=== PATIENT | female | born 1955 | race Caucasian/White ===

== ENCOUNTER 2019-09-25 09:10 | Outpatient (CLI) | payer MEDICARE, MEDICAID, SELFPAY ==
[2019-09-25 10:24] LABS: Alanine Aminotransferase 16 U/L (4-35); Albumin Level 4.3 g/dL (3.5-5.1); Alkaline Phosphatase 107 U/L (38-126); Aspartate Amino Transferase 28 U/L (14-36); Bilirubin,Total 0.6 mg/dL (0.2-1.3); Blood Urea Nitrogen 15 mg/dL (7-17); Calcium 9.2 mg/dL (8.4-10.2); Carbon Dioxide 36 mmol/L (22-30); Chloride 97 mmol/L (98-107); Cholesterol 96 mg/dL (0-200); Estimated Glomerular Filt Rate > 60; Glucose 102 mg/dL (65-105); HDL Direct 30 mg/dL; Hemoglobin A1C 6.1 % (<5.7); Sodium 137 mmol/L (137-145); Triglycerides 95 mg/dL (<150)
[2019-09-25 10:35] LABS: LDL Cholesterol Direct 44 mg/dL
[2019-09-25 11:20] LABS: Vitamin D 25 Hydroxy 43.8 ng/mL
== END 2019-09-25 09:11 | disposition home or self-care (01) ==
PROVIDERS: PCP Internal Medicine; Referring Provider Internal Medicine; Visit Provider Nurse Practitioner
DX: E04.1 Nontoxic single thyroid nodule (principal); R73.02 Impaired glucose tolerance (oral); E78.5 Hyperlipidemia, unspecified; E55.9 Vitamin D deficiency, unspecified
CPT/HCPCS: 36415; 80053; 80061; 82306; 83036; 84443

== ENCOUNTER 2020-04-21 09:17 | Outpatient (CLI) | payer MEDICARE, MEDICAID, SELFPAY ==
[2020-04-21 10:37] LABS: Anion Gap 7 mmol/L (8-16); Blood Urea Nitrogen 22 mg/dL (7-17); Calcium 8.8 mg/dL (8.4-10.2); Carbon Dioxide 30 mmol/L (22-30); Chloride 101 mmol/L (98-107); Estimated Glomerular Filt Rate > 60; Glucose 105 mg/dL (65-105); Sodium 138 mmol/L (137-145)
== END 2020-04-21 09:18 | disposition home or self-care (01) ==
LOC: ANHLAB 09:22
PROVIDERS: PCP Internal Medicine; Visit Provider Internal Medicine
DX: I10 Essential (primary) hypertension (principal)
CPT/HCPCS: 36415; 80048

== ENCOUNTER 2020-07-09 10:34 | Outpatient (CLI) | payer MEDICARE, MEDICAID, SELFPAY ==
--- NOTE | ~2020-07-09 | MM_ITS ---
EXAMINATION: MM screening [facility] BI w carmen HISTORY: Screening mammogram TECHNIQUE: Craniocaudal and mediolateral oblique 3-D tomosynthesis images were obtained and synthetic 2-D images were generated. CAD analysis was submitted and interpreted. COMPARISON: 12/04/1917, 02/15/2013 BREAST PARENCHYMAL COMPOSITION: The breasts are almost entirely fatty. FINDINGS: Scattered benign-appearing calcifications are present. There is no evidence of suspicious m ass, calcification, or architectural distortion to suggest malignancy in either breast. There has bee n no suspicious interval change. IMPRESSION: 1. No mammographic evidence of malignancy. 2. Recommend routine screening mammography in one year. BI-RADS Category 2: Benign finding(s). Reviewed, dictated and finalized at location A.
== END 2020-07-09 10:35 | disposition home or self-care (01) ==
LOC: ANHIMG 10:37
PROVIDERS: PCP Internal Medicine; Visit Provider Nurse Practitioner
DX: Z12.31 Encounter for screening mammogram for malignant neoplasm of breast (principal)
CPT/HCPCS: 77063; 77067

== ENCOUNTER 2020-07-13 09:40 | Outpatient (CLI) | payer MEDICARE, MEDICAID, SELFPAY ==
--- NOTE | ~2020-07-13 | US_ITS ---
EXAMINATION: US carotid duplex BI DATE: 07/13/2020 10:44 INDICATION: Follow-up carotid stenosis. Previous left endarterectomy. TECHNIQUE: Grayscale, color Doppler, and pulsed Doppler images of the cervical carotid arteries were obtained. The degree of vessel stenosis is placed in one of the following categories: normal, <50%, 5 0-69%, >=70% but less than near-occlusion, near-occlusion, or total occlusion. Note that percent sten osis relative to normal distal artery lumen diameter is indirectly measured from velocity measurement s as described by Sekou, et al. Radiology 2003; 229:340-346. Notes: Normal: Peak systolic velocity <125 centimeters/sec and no plaque <50%. Peak systolic velocity <125 ( EDV <40; ICA/CCA PSV ratio <2.0; used these factors only a tandem lesions or low cardiac output or co ntralateral disease) 50-69 %: PSV 125-230 (EDV 40-100; ratio 2-4) >= 70% but less than near occlusion: PSV greater than 230 (EDV > 100; ratio> 4.0) Near Occlusion: PSV that is variable; markedly narrowed lumen Occlusion: Absent flow on color/spectral Doppler and no lumen on souza scale. COMPARISON: Ultrasound dated 05/31/2018 FINDINGS: RIGHT: The right common carotid artery (CCA) peak systolic velocity (PSV) is 66 cm/s. The right internal car otid artery (ICA) PSV is 439 cm/s. The right ICA end-diastolic velocity (EDV) is 139 cm/s. The right ICA/CCA PSV ratio is 6.6. The external carotid artery (ECA) PSV is 645 cm/s. There is to and fro flow in the right vertebral artery. LEFT: The left CCA PSV is 144 cm/s. The left ICA PSV is 166 cm/s. The left ICA EDV is 36 cm/s. The left ICA /CCA PSV ratio is 0.9. The ECA PSV is 216 cm/s. There is antegrade flow in the left vertebral artery . IMPRESSION: 1. Greater than or equal to 70% stenosis in the right internal carotid artery by sonographic criteri a. 2. 50-69% stenosis in the left internal carotid artery by sonographic criteria. 3: To and fro flow in the right vertebral artery. Reviewed, dictated and finalized at location B. IMPRESSION: 1. Greater than or equal to 70% stenosis in the right internal carotid artery by sonographic criteria. 2. 50-69% stenosis in the left internal carotid artery by sonographic criteria. 3: To and fro flow in the right vertebral artery.
--- NOTE | ~2020-07-13 | CT_ITS ---
EXAMINATION: CT lung screening DATE: 07/13/2020 09:58 INDICATION: Personal history of nicotine dependence TECHNIQUE: Computed tomography (CT) of the chest was performed without intravenous contrast. The dose -length product was 399.89 mGy-cm. Automated exposure control and iterative reconstruction technique were employed. Automated exposure control and iterative reconstruction technique were employed. COMPARISON: CT dated 12/14/2027 FINDINGS: No significant pleural or pericardial effusion. There is atherosclerosis of the aorta and c oronary arteries. Calcified granuloma left upper lobe. Heart size is normal. Nonspecific left adrenal thickening.There are a few 2 mm bilateral nodules, predominantly in the upper lobes, likely benign. There is scattered mosaic attenuation, likely small airway disease. No endobronchial lesions. Moderat e lower thoracic spondylosis. No lytic or blastic lesions. IMPRESSION: 1. Lung-RADS category 2: Benign appearance or behavior. Continue annual screening with noncontrast lo w-dose chest CT in 12 months. Reviewed, dictated and finalized at location B. IMPRESSION: 1. Lung-RADS category 2: Benign appearance or behavior. Continue annual screeni ng with noncontrast low-dose chest CT in 12 months.
--- NOTE | ~2020-07-13 | US_ITS ---
EXAMINATION: US thyroid EXAM DATE: 07/13/2020 10:45 INDICATION: E04.1 - Nontoxic single thyroid nodule. TECHNIQUE: Multiple grayscale and Doppler images of the thyroid were obtained (by a technologist who performed the scan) and subsequently reviewed. Individual nodules and recommendations may be reporte d in accordance with TI-RADS system as designated by the 2017 ACR White Paper TI-RADS committee. Comp giancarlo is made to prior examination from 07/03/2018. FINDINGS: The right thyroid lobe measures 5.3 x 1.8 x 1.7 cm, the left measuring 5.2 x 2.4 x 1.8 cm. Mildly dif fusely heterogeneous thyroid echogenicity with several nodules, largest in the left thyroid lobe carlene uring 1.9 x 1.3 x 1.3 cm, smaller than on prior study and also previously biopsied with benign result s. Next largest solid thyroid nodule measures 6 mm in the right thyroid lobe unchanged, not likely si gnificant. IMPRESSION: Multinodular goiter. Return to clinical follow-up and if additional palpable abnormality develops a repeat ultrasound can be obtained. Reviewed, dictated and finalized at location A. IMPRESSION: Multinodular goiter. Return to clinical follow-up and if additiona l palpable abnormality develops a repeat ultrasound can be obtained.
== END 2020-07-13 09:41 | disposition home or self-care (01) ==
PROVIDERS: PCP Internal Medicine; Visit Provider Nurse Practitioner
DX: I65.23 Occlusion and stenosis of bilateral carotid arteries (principal); Z87.891 Personal history of nicotine dependence; E04.2 Nontoxic multinodular goiter
CPT/HCPCS: 71271; 76536; 93880

== ENCOUNTER 2020-07-21 09:35 | Outpatient (CLI) | payer MEDICARE, MEDICAID, SELFPAY ==
[2020-07-21 10:22] LABS: Alanine Aminotransferase 21 U/L (4-35); Albumin Level 4.1 g/dL (3.5-5.1); Alkaline Phosphatase 102 U/L (38-126); Anion Gap 1 mmol/L (8-16); Aspartate Amino Transferase 33 U/L (14-36); Bilirubin,Total 0.5 mg/dL (0.2-1.3); Blood Urea Nitrogen 18 mg/dL (7-17); Calcium 9.1 mg/dL (8.4-10.2); Carbon Dioxide 38 mmol/L (22-30); Chloride 100 mmol/L (98-107); Cholesterol 107 mg/dL (0-200); Estimated Glomerular Filt Rate > 60; Glucose 113 mg/dL (65-105); HDL Direct 36 mg/dL; Potassium 4.7 mmol/L (3.4-5.0); Sodium 139 mmol/L (137-145); Triglycerides 118 mg/dL (<150)
[2020-07-21 10:34] LABS: LDL Cholesterol Direct 46 mg/dL
== END 2020-07-21 09:36 | disposition home or self-care (01) ==
PROVIDERS: PCP Internal Medicine; Visit Provider Nurse Practitioner
DX: F32.9 Major depressive disorder, single episode, unspecified (principal); E78.2 Mixed hyperlipidemia; Z78.0 Asymptomatic menopausal state
CPT/HCPCS: 36415; 80053; 80061; 84443

== ENCOUNTER → 2020-07-25 01:21 | Outpatient (CLI) | payer MEDICARE, MEDICAID, SELFPAY ==
[2020-07-25 18:52] LABS: SARS-CoV-2 RNA PCR Negative
== END ==
PROVIDERS: PCP Internal Medicine; Visit Provider Internal Medicine Critical Care Medicine
DX: R68.89 Other general symptoms and signs (principal); Z20.822 Contact with and (suspected) exposure to COVID-19
CPT/HCPCS: C9803; U0003; U0005

== ENCOUNTER 2020-07-28 10:07 | Outpatient (CLI) | payer MEDICARE, MEDICAID, SELFPAY ==
--- NOTE | 2020-08-12 19:49 | WPDSLEEPSTUD ---
Sleep Study Date of Study: 07/28/20 Ordering Provider: MICHAEL Duke Interpreting Physician: India Packer MD Sleep Study Type: Split Polysomnogram Height: 1.57 m Weight: 107.955 kg Body Mass Index: 43.5 Neck Circumference (inches): 16 [place]: 7 Reason for Sleep Study Tired, need for daytime naps 12/17/2015 home sleep test with moderate obstructive sleep apnea, AHI 16.2 with heavy snoring and severe O2 desaturation to 56% Sleep History Nadya Zarate is a 65 year old female who isn't sure if she snores because she is the only person in her house. A home sleep test in December 17, 2015 showed moderate obstructive sleep apnea with an AHI 16.2 and desaturation to 56%. It is not clear if she ever was treated. 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 She has excessive daytime sleepiness. She occasionally awakens at night with heartburn, belching or coughing. She occasionally awakens from sleep feeling short of breath. She rarely has trouble sleep with a cold and she rarely wakes up gasping for breath at night. She occasionally has breathing problems at night reported to her by others. She rarely sweats excessively at night. She occasionally notices her heart pounding or beating irregularly night. She occasionally falls asleep during the day, occasionally involuntarily but never while driving. She does not have daytime difficulties due to excessive sleepiness, she is retired. She rarely has loss of muscle tone with strong emotion. She does not feel paralyzed on waking or falling asleep. She does not have vivid dreamlike scenes upon awakening or falling asleep. She is not afraid to go to sleep. She does not have nightmares. She rarely remembers her dreams. She occasionally has racing thoughts. She occasionally feels sad or depressed. She constantly has anxiety. She occasionally has muscular tension. She rarely notices parts of her body jerking. She occasionally has crawling and aching feelings in her legs at night. She occasionally has leg pain at night. She does not report kicking at night. She does not have morning jaw pain. She does not grind her teeth during sleep. She occasionally has bothered by pain during the day. She is not waken by pain at night. She occasionally wakes up feeling stiff the morning. She frequently wakes up with sore achy muscles. She also frequently wakes up with pain in the neck and spine. She has depression, fatigue, palpitations. She occasionally has morning headaches. She only occasionally awakens feeling refreshed. She occasionally has memory or concentration problems. Normal bedtime is 11:00 p.m., falling asleep within 20 minutes, waking 1-2 times at night. While she is awake, she will lie in bed, thinking, trying to return to sleep. She wakes the morning between 7:30 and 8:00 a.m.. She takes naps but not every day. A short nap sometimes is refreshing. She feels better in the morning compared other times of day. [facility] Past Medical History Medical History (Updated 08/14/20 @ 14:46 by India Packer MD) Breast abscess Cholecystectomy planned Depression Essential (primary) hypertension History of kidney stones Mixed hyperlipidemia Surgical History Surgical History H/O breast surgery H/O carotid endarterectomy H/O colonoscopy H/O removal of cyst H/O: hysterectomy History of oophorectomy Family History Family History Father Family history of obesity Hypertension Family history of diabetes mellitus in first degree relative Family history of arthritis Family history of chronic obstructive pulmonary disease Mother Family history of obesity Hypertension Asthma Family history of diabetes mellitus in first degree relative Family history of coronary artery disease Diabetes mellitus Social History Social History (Reviewed
[2020-08-14 14:57] VITALS: BMI 43.5
== END 2020-07-28 10:08 | disposition home or self-care (01) ==
LOC: ANHCSM 10:08
PROVIDERS: PCP Internal Medicine; Visit Provider Nurse Practitioner
DX: G47.33 Obstructive sleep apnea (adult) (pediatric) (principal)
CPT/HCPCS: 95811

== ENCOUNTER 2020-08-11 08:28 | Outpatient (CLI) | payer MEDICARE, MEDICAID, SELFPAY ==
--- NOTE | ~2020-08-11 | NM_ITS ---
EXAMINATION: NM rosie stress w perfusion DATE: 08/11/2020 14:44 INDICATION: Palpitations. TECHNIQUE: Rest images were obtained following intravenous administration of 9.8 mCi Tc99m tetrofosmi n (Myoview). The patient was infused intravenously with Lexiscan (regadenoson). Then, 28 mCi Tc99m te trofosmin (Myoview) was administered intravenously, and supine and prone stress images were obtained. Data was reconstructed into short axis and horizontal and vertical long axis SPECT images. Gated SPE CT images were also obtained. COMPARISON: Myocardial perfusion imaging 07/26/2017 FINDINGS: There is no definite reversible or fixed perfusion abnormality to suggest ischemia or infar ction. There is no segmental wall motion abnormality. Left ventricular ejection fraction measures > 70%. IMPRESSION: 1. No definite ischemia or infarct. 2. Normal left ventricular ejection fraction measuring >70%. Reviewed, dictated and finalized at location A.
--- NOTE | 2020-08-11 09:12 | EST_ITS ---
Patient Info Name: Nadya Zarate Age: 65 years : 1955 Gender: Female Ht: 61 in Wt: 254 lbs BSA: 2.30 m2 HR: 74 bpm BP: 86 / 56 mmHg Heart Rhythm: Sinus Rhythm Exam Date: 08/11/2020 10:27 AM Exam Location: [facility] Stress Patient Status: Outpatient Admit Date: 08/11/2020 Staff Ordering Physician: Nancy Zarate Attending Provider: Nancy Zarate Exercise Technologist: Missy Luciano CT Exercise Physician: Carlos Suggs DO Exam Type: CA stress rosie w NM Study Info Indications R00.2 - Palpitations A regadenoson stress test was performed. Summary 1. 1. Negative lexiscan stress test for ischemic ST changes by ECG criteria. 2. 2. Stable hemodynamics throughout the test. 3. 3. Nuclear scan to follow and will be reported separately. Please correlate with it. 4. 4. Patient informed of the above results. Protocol: Lexiscan Stress ECG Details Stage: REST Duration (min): 3 min : 6 sec HR (bpm): 70 SBP (mmHg): 82 DBP (mmHg): 56 Stage: REST Duration (min): 27 min : 1 sec HR (bpm): 81 SBP (mmHg): 96 DBP (mmHg): 61 Stage: STAGE 1 Duration (min): 0 min : 59 sec HR (bpm): 89 SBP (mmHg): 96 DBP (mmHg): 61 Stage: RECOVERY Duration (min): 1 min : 0 sec HR (bpm): 91 SBP (mmHg): 96 DBP (mmHg): 61 Stage: RECOVERY Duration (min): 2 min : 0 sec HR (bpm): 87 SBP (mmHg): 96 DBP (mmHg): 61 Stage: RECOVERY Duration (min): 3 min : 0 sec HR (bpm): 87 SBP (mmHg): 115 DBP (mmHg): 52 Stage: RECOVERY Duration (min): 3 min : 4 sec HR (bpm): 84 SBP (mmHg): 115 DBP (mmHg): 52 Rest HR: 81 bpm Peak HR: 93 bpm Rest Sys BP: 120 mmHg Peak Sys BP: 115 mmHg Max Pred HR: 154 bpm % Max Pred HR: 60 % Target HR: 131 bpm Max RPP: 10,695 bpm*mmHg Termination Reason: Completed protocol Cardiac Symptoms: Shortness of breath Total Time: 1 min : 0 sec Rest Syed BP: 70 mmHg Peak Syed BP: 52 mmHg Total Dose: 0.4 mg Resting ECG Sinus rhythm, IRBBB. Stress ECG No ST changes. Arrhythmias None. Report Signatures
== END 2020-08-11 08:29 | disposition home or self-care (01) ==
LOC: ANHCARD 08:37
PROVIDERS: PCP Internal Medicine; Visit Provider Nurse Practitioner
DX: R00.2 Palpitations (principal); R06.02 Shortness of breath
CPT/HCPCS: 78452; 93017; A9502; J2785

== ENCOUNTER → 2020-09-01 04:52 | Outpatient (CLI) | payer MEDICARE, MEDICAID, SELFPAY ==
[2020-09-01 20:06] LABS: SARS-CoV-2 RNA PCR Negative
== END ==
PROVIDERS: PCP Internal Medicine; Visit Provider Internal Medicine Critical Care Medicine
DX: R68.89 Other general symptoms and signs (principal); Z20.822 Contact with and (suspected) exposure to COVID-19
CPT/HCPCS: C9803; U0003; U0005

== ENCOUNTER 2020-09-03 07:00 | Outpatient (CLI) | payer MEDICARE, MEDICAID, SELFPAY ==
--- NOTE | 2020-09-21 11:35 | WPDSLEEPSTUD ---
Sleep Study Date of Study: 09/03/20 Ordering Provider: MICHAEL Duke Interpreting Physician: India Packer MD Sleep Study Type: BiPAP Titration Height: 1.55 m Weight: 116.12 kg Body Mass Index: 48.3 Neck Circumference (inches): 18 [place]: 8 Reason for Sleep Study * 12/17/2015 home sleep test; moderate obstructive sleep apnea, AHI 16.2, heavy snoring and severe O2 desaturation to 56% * 07/28/2020 split night study - mild obstructive sleep apnea; initial apnea-hypopnea index of 5.0, with worsening to severe when the patient went into REM at CPAP 12 cm with an AHI 30.9, no optimal pressure found. She returns for a full night BiPAP titration. Sleep History Nadya Zarate is a 65 year old female who had a split night study 07/28/2020 with mild JHONY, AHI 5.0, and this worsened when she went into REM at CPAP 12 cm. No optimal pressure was obtained during the titration with CPAP pressures 6 cm to 14 cm attempted and BiPAP 28/01 using a small Airfit F 30 full face mask and a heated humidifier; persistent hypoxemia on 28/01 with an AHI of 5.8. The lowest saturation during the titration was 72%. A home sleep test in December 17, 2015 showed moderate obstructive sleep apnea with an AHI 16.2 and desaturation to 56%. It is not clear if she ever was treated. 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 She has excessive daytime sleepiness. She occasionally awakens at night with heartburn, belching or coughing. She occasionally awakens from sleep feeling short of breath. She rarely has trouble sleep with a cold and she rarely wakes up gasping for breath at night. She occasionally has breathing problems at night reported to her by others. She rarely sweats excessively at night. She occasionally notices her heart pounding or beating irregularly night. She occasionally falls asleep during the day, occasionally involuntarily but never while driving. She does not have daytime difficulties due to excessive sleepiness, she is retired. She rarely has loss of muscle tone with strong emotion. She does not feel paralyzed on waking or falling asleep. She does not have vivid dreamlike scenes upon awakening or falling asleep. She is not afraid to go to sleep. She does not have nightmares. She rarely remembers her dreams. She occasionally has racing thoughts. She occasionally feels sad or depressed. She constantly has anxiety. She occasionally has muscular tension. She rarely notices parts of her body jerking. She occasionally has crawling and aching feelings in her legs at night. She occasionally has leg pain at night. She does not report kicking at night. She does not have morning jaw pain. She does not grind her teeth during sleep. She occasionally has bothered by pain during the day. She is not waken by pain at night. She occasionally wakes up feeling stiff the morning. She frequently wakes up with sore achy muscles. She also frequently wakes up with pain in the neck and spine. She has depression, fatigue, palpitations. She occasionally has morning headaches. She only occasionally awakens feeling refreshed. She occasionally has memory or concentration problems. Normal bedtime is 11:00 p.m., falling asleep within 20 minutes, waking 1-2 times at night. While she is awake, she will lie in bed, thinking, trying to return to sleep. She wakes the morning between 7:30 and 8:00 a.m.. She takes naps but not every day. A short nap sometimes is refreshing. She feels better in the morning compared other times of day. [facility] Past Medical History Medical History (Updated 09/21/20 @ 12:19 by India Packer MD) Breast abscess Cholecystectomy planned Depression Essential (primary) hypertension History of kidney stones Mixed hyperlipidemia Obstructive sleep apnea Surgical History Surgical History H/O breast surgery H/O carotid endarterectomy H/O colonoscopy H/O
[2020-09-21 11:41] VITALS: BMI 48.3
== END 2020-09-04 07:41 | disposition home or self-care (01) ==
LOC: ANHCSM 15:09
PROVIDERS: PCP Internal Medicine; Visit Provider Nurse Practitioner
DX: G47.33 Obstructive sleep apnea (adult) (pediatric) (principal); E66.9 Obesity, unspecified; Z68.42 Body mass index [BMI] 45.0-49.9, adult
CPT/HCPCS: 94060; 94618; 94726; 94729; 95811

== ENCOUNTER 2020-09-03 12:38 | Outpatient (CLI) | payer MEDICARE, MEDICAID, SELFPAY ==
[2020-09-03 13:00] VITALS: PULSE 77; O2SAT 95
[2020-09-03 13:03] VITALS: PULSE 108; O2SAT 85
[2020-09-03 13:05] VITALS: PULSE 96; O2SAT 90
[2020-09-03 13:15] VITALS: PULSE 78; O2SAT 95
--- NOTE | 2020-09-03 13:57 | HOMEO2EVAL ---
Evaluation was performed at [facility] Home Oxygen Evaluation RC: Home Oxygen (O2) Evaluation Start: 09/03/20 13:55 Freq: Status: Active Protocol: RPE Activity Type Activity Date Activity User E-Sign Co-Sign Detail Recorded Client Recorded Date Recorded By Document 09/03/20 13:00 [email or web address] [email or web address] 09/03/20 13:57 ROYAL Document 09/03/20 13:03 ROYAL [email or web address] 09/03/20 13:57 ROYAL Document 09/03/20 13:05 ROYAL [email or web address] 09/03/20 13:57 ROYAL Document 09/03/20 13:15 ROYAL [email or web address] 09/03/20 13:57 ROYAL 09/03/20 09/03/20 09/03/20 13:00 13:03 13:05 Home O2 Evaluation Test Phase Resting Exercise Exercise Oxygen Delivery Room Air Room Air Nasal Cannula Oxygen Flow Rate (L/min) 1 Pulse Oximetry (90-100 %) 95 85 L 90 Pulse Rate (60-100 beats/min) 77 108 H 96 Activity Tolerance Excellent Ambulation Distance (feet) 600 Home Oxygen Evaluation Comments PT REQUIRES 1 LITER O2 WITH EXERTION Treatment Charges O2 Evaluation - Outpatient 09/03/20 13:15 Home O2 Evaluation Test Phase Resting Oxygen Delivery Room Air Oxygen Flow Rate (L/min) Pulse Oximetry (90-100 %) 95 Pulse Rate (60-100 beats/min) 78 Activity Tolerance Ambulation Distance (feet) Home Oxygen Evaluation Comments Treatment Charges
--- NOTE | 2020-09-03 13:58 | PCRCNOTE ---
HOME O2 EVAL FAXED TO DR AZEVEDO OFFICE STAFF, NOTED THIS WILL BE A NEW HOME O2 SET-UP
--- NOTE | 2020-09-06 14:05 | WPDPFTINT ---
PFT Procedure Performed PFT Procedure Performed Spirometry with Pre/Post Bronchodilator Plethysmography (Lung Vol) Diffusing Cap (DLCO) Flow Vol Loop PFT Interpretation This PFT met all criteria for ATS standards and reproducibility FEV/FVC post bronchodilator 83% FEV1 78% FVC 74% TLC 86% RV 97% RV/TLC 47% DLCO when adjusted for alveolar volume but not adjusted for hemoglobin Flow volume loops were normal Impression: Other than a mildly decreased diffusion capacity this is a normal pulmonary function test. Clinical correlation is advised.
--- NOTE | 2020-10-15 15:29 | HOMEO2EVAL ---
Evaluation was performed at [facility]
== END 2020-09-03 12:39 | disposition home or self-care (01) ==
PROVIDERS: PCP Internal Medicine; Visit Provider Nurse Practitioner
DX: G47.33 Obstructive sleep apnea (adult) (pediatric) (principal); R06.02 Shortness of breath
CPT/HCPCS: 94060; 94618; 94726; 94729

== ENCOUNTER 2020-11-27 09:16 | Outpatient (CLI) | payer MEDICARE, MEDICAID, SELFPAY ==
[2020-11-27 09:30] VITALS: O2SAT 96
[2020-11-27 09:35] VITALS: O2SAT 85
[2020-11-27 09:36] VITALS: O2SAT 87
[2020-11-27 09:38] VITALS: O2SAT 93
[2020-11-27 09:45] VITALS: O2SAT 95
--- NOTE | 2020-11-27 10:05 | HOMEO2EVAL ---
Evaluation was performed at [facility] Home Oxygen Evaluation RC: Home Oxygen (O2) Evaluation Start: 11/27/20 10:01 Freq: Status: Active Protocol: RPE Activity Type Activity Date Activity User E-Sign Co-Sign Detail Recorded Client Recorded Date Recorded By Document 11/27/20 09:30 ROYAL [email or web address] 11/27/20 10:05 ROYAL Document 11/27/20 09:35 ROYAL [email or web address] 11/27/20 10:05 ROYAL Document 11/27/20 09:36 ROYAL [email or web address] 11/27/20 10:05 ROYAL Document 11/27/20 09:38 ROYAL [email or web address] 11/27/20 10:05 ROYAL Document 11/27/20 09:45 ROYAL [email or web address] 11/27/20 10:05 ROYAL 11/27/20 11/27/20 11/27/20 09:30 09:35 09:36 Home O2 Evaluation Test Phase Resting Exercise Exercise Oxygen Delivery Room Air Room Air Nasal Cannula Oxygen Flow Rate (L/min) 1 Pulse Oximetry (90-100 %) 96 85 L 87 L Ambulation Distance (feet) Home Oxygen Evaluation Comments Treatment Charges O2 Evaluation - Outpatient 11/27/20 11/27/20 09:38 09:45 Home O2 Evaluation Test Phase Exercise Resting Oxygen Delivery Nasal Cannula Room Air Oxygen Flow Rate (L/min) 2 Pulse Oximetry (90-100 %) 93 95 Ambulation Distance (feet) 550 Home Oxygen Evaluation Comments PT WALKED 550 FEET IN 6 MINUTES, WITH BREAKS FOR O2 TITRATION. PT REQUIRES 2 L O2 WITH EXERTION/ ACTIVITY Treatment Charges
--- NOTE | 2020-11-27 10:06 | PCRCNOTE ---
HOME O2 EVAL REPEATED PER [facility] ORDER. FAXED RESULT TO [facility] OFFICE STAFF AT 0267 11/27/20. ALSO CALLED AND SPOKE TO SHEREE
== END 2020-11-27 09:17 | disposition home or self-care (01) ==
PROVIDERS: PCP Internal Medicine; Visit Provider Nurse Practitioner
DX: J44.9 Chronic obstructive pulmonary disease, unspecified (principal)
CPT/HCPCS: 94618

== ENCOUNTER 2020-12-11 12:29 | Outpatient (CLI) | payer MEDICARE, MEDICAID, SELFPAY ==
--- NOTE | 2020-12-11 16:34 | P.METCHAL_ITS ---
Methacholine Procedure Perform Procedure Performed Methacholine Challenge Methacholine Challenge This is a methacholine challenge test. The test was performed and interpreted in accordance with the 1999 [place] [employer] guidelines. The test was performed with increasing doses of nebulized methacholine using a 2 minute tidal breathing protocol. The best post-methacholine FEV1 values were used to calculate the change from the post diluent FEV1. Findings: Baseline FEV1 1.45 L, 98% predicted. Post diluent FEV1 1.49 L Post 0.025 mg/ml methacholine FEV1 1.43 L, decreased 4% Post 0.25 mg/mL methacholine FEV1 1.48 L, decreased 1% Post 2.5 mg/mL methacholine FEV1 1.44 L, decreased 3% Post 10 mg/mL methacholine FEV1 1.42 L, decreased 5% Post 25 mg/mL methacholine FEV1 1.28 L, decreased 14% Post albuterol nebulization FEV1 1.41 L Impression: The PC20 is >20 mg/ml which is categorized as normal bronchial responsiveness. There are no prior methacholine challenge studies for comparison
== END 2020-12-11 12:30 | disposition home or self-care (01) ==
PROVIDERS: PCP Internal Medicine; Visit Provider Nurse Practitioner
DX: J45.909 Unspecified asthma, uncomplicated (principal)
CPT/HCPCS: 94070; J7674

== ENCOUNTER 2020-12-23 09:43 | Outpatient (CLI) | payer MEDICARE, MEDICAID, SELFPAY ==
[2020-12-23 10:35] LABS: Basophils Absolute Auto 0.1 K/mm3 (0.0-0.1); Basophils Percent Auto 0.7 % (0.2-1.2); Eosinophils Absolute Auto 0.2 K/mm3 (0-0.3); Eosinophils Percent Auto 1.8 % (0-4.4); Hematocrit 39.6 % (37.0-47.0); Hemoglobin 12.5 g/dL (12.0-15.0); Immature Granulocyte Absolute 0.02 K/mm3 (0.00-0.031); Immature Granulocyte Percent A 0.2 % (0-0.5); Lymphocytes Absolute Auto 1.82 K/mm3 (0.9-3.2); Lymphocytes Percent Auto 19.4 % (18.3-44.2); Mean Corpuscular HGB Conc 31.6 g/dl (32-36); Mean Corpuscular Hemoglobin 31.5 pg (26-34); Mean Corpuscular Volume 99.7 fl (80-100); Mean Platelet Volume 8.8 fl (7.4-10.4); Monocytes Absolute Auto 0.9 K/mm3 (0.1-0.6); Monocytes Percent Auto 9.4 % (2.6-8.5); Neutrophils Absolute Auto 6.4 K/mm3 (1.3-6.7); Neutrophils Percent Auto 68.5 % (45.5-73.1); Platelet Count Result 385 k/mm3 (150-375); Red Blood Count 3.97 M/mm3 (4.2-5.4); Red Cell Distribution Width 12.9 % (11.5-14.5); White Blood Count 9.4 K/mm3 (4.5-10.0)
[2020-12-26 10:12] LABS: Alpha-1-Antitrypsin, QN 141 mg/dL (83-199)
[2020-12-27 11:20] LABS: NIL 0.01 IU/mL; Quantiferon TB Plus, 1T NEGATIVE (NEGATIVE)
[2020-12-27 16:06] LABS: Blastomyces Antibody Negative (Negative)
[2020-12-28 03:25] LABS: Immunoglobulin E 16 kU/L (<=114)
== END 2020-12-23 09:44 | disposition home or self-care (01) ==
PROVIDERS: PCP Internal Medicine; Visit Provider Nurse Practitioner
DX: R06.09 Other forms of dyspnea (principal); R91.8 Other nonspecific abnormal finding of lung field
CPT/HCPCS: 36415; 82103; 82104; 82785; 85025; 86331; 86480; 86606; 86609; 86612; 86698

== ENCOUNTER 2021-01-08 09:24 | Outpatient (CLI) | payer MEDICARE, MEDICAID, SELFPAY ==
[2021-01-08 10:42] LABS: Alanine Aminotransferase 22 U/L (4-35); Albumin Level 4.1 g/dL (3.5-5.1); Alkaline Phosphatase 107 U/L (38-126); Anion Gap 8 mmol/L (8-16); Aspartate Amino Transferase 30 U/L (14-36); Bilirubin,Total 0.7 mg/dL (0.2-1.3); Blood Urea Nitrogen 19 mg/dL (7-17); Calcium 9.1 mg/dL (8.4-10.2); Carbon Dioxide 34 mmol/L (22-30); Chloride 100 mmol/L (98-107); Cholesterol 115 mg/dL (0-200); Estimated Glomerular Filt Rate > 60; Glucose 105 mg/dL (65-110); HDL Direct 42 mg/dL; Sodium 142 mmol/L (137-145); Triglycerides 125 mg/dL (<150)
[2021-01-08 10:53] LABS: LDL Cholesterol Direct 47 mg/dL
[2021-01-08 11:23] LABS: Vitamin D 25 Hydroxy 29.3 ng/mL
== END 2021-01-08 09:25 | disposition home or self-care (01) ==
PROVIDERS: PCP Internal Medicine; Referring Provider Nurse Practitioner; Visit Provider Nurse Practitioner
DX: E78.2 Mixed hyperlipidemia (principal); F32.9 Major depressive disorder, single episode, unspecified; Z13.21 Encounter for screening for nutritional disorder; Z79.899 Other long term (current) drug therapy
CPT/HCPCS: 36415; 80053; 80061; 82306; 84443

== ENCOUNTER 2021-03-03 13:12 | Outpatient (CLI) | payer MEDICARE, MEDICAID, SELFPAY ==
--- NOTE | ~2021-03-03 | CT_ITS ---
EXAMINATION: CT chest high resolution wo co DATE: 03/03/2021 14:38 INDICATION: OTHER DISORDERS OF LUNG. Shortness of breath. TECHNIQUE: Computed tomography (CT) of the chest was performed without intravenous contrast. Addition al 3D reconstructions utilizing coronal maximum intensity projection (MIP) were performed. Automated exposure control and iterative reconstruction technique were employed. The dose-length product was 77 3.42 mGy-cm. COMPARISON: 07/13/2020 FINDINGS: Large calcified nodule at the left upper lobe along with calcified left hilar lymph nodes consistent with old granulomatous disease. No interval change in a few tiny 2 mm smaller noncalcified nodules in the bilateral upper lobes. Unchanged pattern of mild mosaic attenuation most prominent in the left u pper lobe along side the calcified nodule and likely sequela small airway disease. No new pulmonary n odules, airspace opacities, pulmonary edema or pleural effusion. Heart size is normal. Atheroscleroti c coronary artery calcification. Aortic valve calcification. Mild atherosclerotic calcification along the normal caliber thoracic aorta and great vessels arising from the arch. No pathologically enlarge d thoracic lymphadenopathy. Cholecystectomy clips the gallbladder fossa. Moderate thoracic spondylosi s. IMPRESSION: 1. No acute cardiopulmonary disease. Reviewed, dictated and finalized at location A. [employer]
== END 2021-03-03 13:13 | disposition home or self-care (01) ==
LOC: ANHLAB 13:34
PROVIDERS: PCP Internal Medicine; Visit Provider Nurse Practitioner
DX: J30.9 Allergic rhinitis, unspecified (principal); R06.09 Other forms of dyspnea; R91.8 Other nonspecific abnormal finding of lung field
CPT/HCPCS: 36415; 71250; 82164; 82785; 86003; 86038; 86635; 87449

== ENCOUNTER 2021-03-10 16:40 | Outpatient (NON) | payer MEDICARE, MEDICAID, SELFPAY ==
[2021-03-14 00:56] LABS: Legionella pneumophila Ag Ur Not Detected (Not Detected)
[2021-03-14 07:35] LABS: Angiotensin Converting Enzyme 37 U/L (9-67)
[2021-03-17 20:56] LABS: Coccidioides Ab to F Ag (IgG) NEGATIVE; Coccidioides Ab to TP Ag (IgM) NEGATIVE
== END 2021-03-10 16:41 | disposition home or self-care (01) ==
LOC: ANHLAB 16:44
PROVIDERS: PCP Internal Medicine; Visit Provider Nurse Practitioner
DX: J30.9 Allergic rhinitis, unspecified (principal); R91.8 Other nonspecific abnormal finding of lung field; R06.09 Other forms of dyspnea; R53.83 Other fatigue
CPT/HCPCS: 36415; 82164; 86038; 86635; 87449

== ENCOUNTER 2021-03-12 10:06 | Outpatient (CLI) | payer MEDICARE, MEDICAID, SELFPAY ==
[2021-03-12 10:40] VITALS: PULSE 64; O2SAT 93
[2021-03-12 10:45] VITALS: PULSE 88; O2SAT 86
[2021-03-12 10:50] VITALS: PULSE 97; O2SAT 88
[2021-03-12 10:55] VITALS: PULSE 110; O2SAT 91
[2021-03-12 11:05] VITALS: PULSE 70; O2SAT 94
--- NOTE | 2021-03-12 11:19 | PCRCNOTE ---
PT CAME IN TODAY FOR A SIX MINUTE WALK AND PFT. HOME O2 EVAL WAS DONE AND FAXED TO DR. LUJAN. PT HAD A PRE AND POST SPIROMETRY ON 12/11/20 AND A FULL PRE AND POST PFT ON 09/03/20. SPOKE WITH SHEREE AT DR. LUJAN'S OFFICE AND SHE SAID TO HOLD OFF ON ANOTHER PFT UNTILL SHE COULD CONFIRM SHE NEEDED A NEW ONE. PT NOTIFIED AND AGREED.
--- NOTE | 2021-03-12 11:25 | HOMEO2EVAL ---
Evaluation was performed at [facility] Home Oxygen Evaluation RC: Home Oxygen (O2) Evaluation Start: 03/12/21 11:22 Freq: Status: Active Protocol: RPE Activity Type Activity Date Activity User E-Sign Co-Sign Detail Recorded Client Recorded Date Recorded By Document 03/12/21 10:40 DJO [email or web address] 03/12/21 11:25 DJO Document 03/12/21 10:45 [email or web address] [email or web address] 03/12/21 11:25 DJO Document 03/12/21 10:50 [email or web address] [email or web address] 03/12/21 11:25 DJO Document 03/12/21 10:55 [email or web address] [email or web address] 03/12/21 11:25 DJO Document 03/12/21 11:05 [email or web address] [email or web address] 03/12/21 11:25 DJO 03/12/21 03/12/21 03/12/21 10:40 10:45 10:50 Home O2 Evaluation Test Phase Resting Exercise Exercise Oxygen Delivery Room Air Room Air Nasal Cannula Oxygen Flow Rate (L/min) 1 Pulse Oximetry (90-100 %) 93 86 L 88 L Pulse Rate (60-100 beats/min) 64 88 97 Activity Tolerance Ambulation Distance (feet) Treatment Charges O2 Evaluation - Outpatient 03/12/21 03/12/21 10:55 11:05 Home O2 Evaluation Test Phase Exercise Resting Oxygen Delivery Nasal Cannula Room Air Oxygen Flow Rate (L/min) 2 Pulse Oximetry (90-100 %) 91 94 Pulse Rate (60-100 beats/min) 110 H 70 Activity Tolerance Fair Ambulation Distance (feet) 500 Treatment Charges
== END 2021-03-12 10:07 | disposition home or self-care (01) ==
LOC: ANHPFT 10:08
PROVIDERS: PCP Internal Medicine; Visit Provider Nurse Practitioner
DX: J44.9 Chronic obstructive pulmonary disease, unspecified (principal)
CPT/HCPCS: 94618

== ENCOUNTER 2021-03-16 10:15 | Outpatient (CLI) | payer MEDICARE, MEDICAID, SELFPAY ==
--- NOTE | ~2021-03-16 | US_ITS ---
EXAMINATION: US venous doppler LE BI EXAM DATE: 03/16/2021 11:42 INDICATION: Bilateral leg swelling. TECHNIQUE: Multiple grayscale, color flow and Doppler images of the lower extremity venous systems bi laterally were obtained and reviewed. Saphenous venous mapping. The exam was reviewed on 03/16/2021. There is no prior study for comparison. FINDINGS: Right side: The right common femoral, femoral and profunda veins demonstrate normal color flow, respi ratory variation, augmentation and compressibility. Compressibility, color flow confirmed within the right popliteal, posterior tibial, peroneal, and greater saphenous veins. Right Standing Venous Mapping: reflux seconds duration; vein size. Greater saphenous origin: 0 seconds; 4.7 mm. Greater saphenous mid thigh:------ 0 seconds; 4.7 mm. Greater saphenous below knee:--- 3 seconds; 3.8 mm. Lesser saphenous proximally:------ 0 seconds; 1.6 mm. Lesser saphenous distally: 0 seconds; 2.5 mm. Left side: The left common femoral, femoral and profunda veins demonstrate normal color flow, respira tory variation, augmentation and compressibility. Compressibility, color flow confirmed within the l eft popliteal, posterior tibial, peroneal, and greater saphenous veins. Left Standing Venous Mapping: reflux seconds duration; vein size. Greater saphenous origin: 3 seconds; 6.3 mm. Greater saphenous mid thigh:------ 2.5 seconds; 5.2 mm. Greater saphenous below knee:--- 0 seconds; 3.2 mm. Lesser saphenous proximally:------ 0 seconds; 3.7 mm. Lesser saphenous distally: 0 seconds; 2.6 mm. IMPRESSION: 1. Bilateral greater saphenous venous reflux. 2. No DVT. Reviewed, dictated and finalized at location A. UNICATION SPECIALIST
== END 2021-03-16 10:16 | disposition home or self-care (01) ==
PROVIDERS: PCP Internal Medicine; Visit Provider Internal Medicine Cardiovascular Disease
DX: R22.43 Localized swelling, mass and lump, lower limb, bilateral (principal); Z82.49 Family history of ischemic heart disease and other diseases of the circulatory system; E66.01 Morbid (severe) obesity due to excess calories; I77.9 Disorder of arteries and arterioles, unspecified; R06.02 Shortness of breath; R42 Dizziness and giddiness; F17.200 Nicotine dependence, unspecified, uncomplicated; G47.33 Obstructive sleep apnea (adult) (pediatric); E78.6 Lipoprotein deficiency; N20.0 Calculus of kidney; I10 Essential (primary) hypertension; F32.9 Major depressive disorder, single episode, unspecified
CPT/HCPCS: 93970

== ENCOUNTER 2021-07-09 09:30 | Outpatient (CLI) | payer MEDICARE, MEDICAID, SELFPAY ==
[2021-07-09 10:17] LABS: Alanine Aminotransferase 22 U/L (4-35); Albumin Level 4.1 g/dL (3.5-5.1); Alkaline Phosphatase 129 U/L (38-126); Anion Gap 10 mmol/L (8-16); Aspartate Amino Transferase 34 U/L (14-36); Bilirubin,Total 0.8 mg/dL (0.2-1.3); Blood Urea Nitrogen 23 mg/dL (7-17); Calcium 8.5 mg/dL (8.4-10.2); Carbon Dioxide 30 mmol/L (22-30); Chloride 99 mmol/L (98-107); Cholesterol 122 mg/dL (0-200); Estimated Glomerular Filt Rate > 60; Glucose 123 mg/dL (65-110); HDL Direct 35 mg/dL; Potassium 3.9 mmol/L (3.4-5.0); Sodium 139 mmol/L (137-145); Triglycerides 130 mg/dL (<150)
[2021-07-09 10:20] LABS: Hemoglobin A1C 5.6 % (<5.7)
[2021-07-09 10:28] LABS: LDL Cholesterol Direct 54 mg/dL
== END 2021-07-09 09:31 | disposition home or self-care (01) ==
LOC: ANHLAB 09:35
PROVIDERS: PCP Internal Medicine; Visit Provider Internal Medicine
DX: R73.02 Impaired glucose tolerance (oral) (principal); E03.9 Hypothyroidism, unspecified; E78.2 Mixed hyperlipidemia; I10 Essential (primary) hypertension
CPT/HCPCS: 36415; 80053; 80061; 83036; 84443

== ENCOUNTER 2021-08-13 08:35 | Outpatient (CLI) | payer MEDICARE, MEDICAID, SELFPAY ==
--- NOTE | ~2021-08-13 | XR_ITS ---
XR barium swallow DATE: 08/13/2021 09:42 INDICATION: Dysphagia TECHNIQUE: Single contrast examination of the esophagus, including fluoroscopy, rapid sequence spot r adiographs and overhead radiographs during oral ingestion of barium 38.74 DAP 84 images 0.9 seconds fluoroscopy time COMPARISON: None FINDINGS: No stricture, mucosal fold thickening, erosion, ulceration, intraluminal mass lesion or div erticulum of the esophagus is detected. No hiatal hernia. No gastroesophageal reflux was observed during the examination. Surgical clips adjacent to the duodenal bulb consistent with cholecystectomy. Cardiomegaly. Aortic arch calcification. IMPRESSION: No significant abnormality of the esophagus Reviewed, dictated and finalized at Location A. Reviewed, dictated and finalized at location A.
[2021-08-13 09:05] LABS: Basophils Absolute Auto 0.1 K/mm3 (0.0-0.1); Basophils Percent Auto 0.8 % (0.2-1.2); Eosinophils Absolute Auto 0.3 K/mm3 (0-0.3); Eosinophils Percent Auto 2.9 % (0-4.4); Hematocrit 36.5 % (37.0-47.0); Hemoglobin 11.4 g/dL (12.0-15.0); Immature Granulocyte Absolute 0.04 K/mm3 (0.00-0.031); Immature Granulocyte Percent A 0.4 % (0-0.5); Lymphocytes Absolute Auto 1.36 K/mm3 (0.9-3.2); Lymphocytes Percent Auto 12.8 % (18.3-44.2); Mean Corpuscular HGB Conc 31.2 g/dl (32-36); Mean Corpuscular Hemoglobin 29.9 pg (26-34); Mean Corpuscular Volume 95.8 fl (80-100); Mean Platelet Volume 8.7 fl (7.4-10.4); Neutrophils Absolute Auto 7.9 K/mm3 (1.3-6.7); Neutrophils Percent Auto 74.1 % (45.5-73.1); Platelet Count Result 410 k/mm3 (150-375); Red Blood Count 3.81 M/mm3 (4.2-5.4); Red Cell Distribution Width 15.7 % (11.5-14.5); White Blood Count 10.6 K/mm3 (4.5-10.0)
[2021-08-13 09:14] LABS: INR 1.1; Prothrombin Time 13.3 Seconds (11.1-14.7)
[2021-08-13 09:17] LABS: Anion Gap 6 mmol/L (8-16); Blood Urea Nitrogen 19 mg/dL (7-17); Calcium 8.6 mg/dL (8.4-10.2); Carbon Dioxide 33 mmol/L (22-30); Chloride 102 mmol/L (98-107); Cholesterol 100 mg/dL (0-200); Estimated Glomerular Filt Rate > 60; Glucose 131 mg/dL (65-110); HDL Direct 38 mg/dL; Potassium 3.6 mmol/L (3.4-5.0); Sodium 141 mmol/L (137-145); Triglycerides 82 mg/dL (<150)
[2021-08-13 09:28] LABS: LDL Cholesterol Direct 38 mg/dL
== END 2021-08-13 08:36 | disposition home or self-care (01) ==
PROVIDERS: PCP Internal Medicine; Referring Provider Internal Medicine Cardiovascular Disease; Visit Provider Nurse Practitioner
DX: R13.10 Dysphagia, unspecified (principal); R42 Dizziness and giddiness; E78.5 Hyperlipidemia, unspecified; I10 Essential (primary) hypertension; R06.02 Shortness of breath
CPT/HCPCS: 36415; 74220; 80048; 80061; 85025; 85610

== ENCOUNTER 2021-11-15 13:28 | Outpatient (CLI) | payer MEDICARE, MEDICAID, SELFPAY ==
--- NOTE | 2021-11-15 15:07 | WPDPFTINT ---
PFT Procedure Performed PFT Procedure Performed Spirometry with Pre/Post Bronchodilator Plethysmography (Lung Vol) Diffusing Cap (DLCO) Flow Vol Loop PFT Interpretation This is a pulmonary function test with pre and post-bronchodilator spirometry, plethysmography and diffusing capacity. The test was performed and results interpreted in accordance with the 2019 and 2005 ATS/ERS Task Force guidelines respectively using the Global Lung Function Initiative-2012 reference equations. Patient demonstrated good effort and cooperation. Reproducibility criteria were met. The quality of the pre bronchodilator spirometry maneuver was Grade A and post bronchodilator spirometry maneuver was Grade A. Findings: Spirometry: The contour the inspiratory and expiratory flow tracing are normal. The pre bronchodilator FVC is 2.10 L, 77% predicted. The pre bronchodilator FEV1 is 1.72 L, 80% predicted. The pre bronchodilator FEV1: FVC ratio is 82%. The post bronchodilator FVC is 2.07 L, representing a 2% decrease. The post bronchodilator FEV1 is 1.73 L, representing 1% increase. The post bronchodilator FEV1: FVC ratio was 84%. Plethysmography: The total lung capacity is 4.55 L, 96% predicted. The functional residual capacity is 2.87 L, 107% predicted. The residual volume is 2.40 L, 119% predicted. Diffusion capacity: The diffusing capacity unadjusted for hemoglobin and carboxyhemoglobin is 13.8, 69% predicted. The diffusing capacity adjusted for alveolar volume is 4.30, 97% predicted. In comparison to previous pulmonary function test on 09/03/2020 the post bronchodilator FVC is unchanged from 2.03 L to 2.07 L. The post bronchodilator FEV1 is unchanged from 1.68 L to 1.73 L. The total lung capacity is unchanged from 4.07 L to 4.55 L. The functional residual capacity is increased from 2.09 L to 2.87 L. The residual volume is increased from 1.93 L to 2.40 L. The diffusing capacity unadjusted for hemoglobin and carboxyhemoglobin is unchanged from 15.6 to 13.8. The diffusing capacity adjusted for alveolar volume is unchanged from 4.67 to 4.30. Impression: The spirometry is normal without evidence of an obstructive abnormality. There is no significant improvement after inhaling a single dose of albuterol. The lung volumes are normal. The diffusing capacity is normal. when compared to prior pulmonary function test on 09/03/2020 there has been a greater than anticipated time dependent increase in the functional residual capacity and residual volume with no significant change in the FVC, FEV1, total lung capacity or diffusing capacity. Clinical correlation is recommended.
== END 2021-11-15 13:29 | disposition home or self-care (01) ==
LOC: ANHPFT 13:29
PROVIDERS: PCP Internal Medicine; Visit Provider Nurse Practitioner
DX: J44.9 Chronic obstructive pulmonary disease, unspecified (principal)
CPT/HCPCS: 94060; 94726; 94729

== ENCOUNTER 2021-11-26 12:29 | Outpatient (CLI) | payer MEDICARE, MEDICAID, SELFPAY ==
--- NOTE | ~2021-11-26 | CT_ITS ---
EXAMINATION: CT diagnostic chest w con DATE: 11/26/2021 13:00 INDICATION: Chest pain. COPD. Shortness of breath with cough. TECHNIQUE: Computed tomography (CT) of the chest was performed with 75 cc Omnipaque 350 intravenous c ontrast. The dose-length product was 762.57 mGy-cm. Automated exposure control and iterative reconstr uction technique were employed. COMPARISON: CT dated 03/03/2021 FINDINGS: Borderline heart size. No significant pleural or pericardial effusion. No thoracic lymphade nopathy. There is atherosclerosis of the aorta and coronary arteries. The upper abdomen is unremarkab le. There is mild emphysema. No endobronchial lesions. No focal airspace consolidation. Densely calci fied nodule in the left upper lobe, consistent with chronic granulomatous disease. Stable small upper lobe nodules measuring 2 mm or less. No pneumothorax. Moderate thoracic spondylosis. IMPRESSION: 1. No acute cardiopulmonary disease. Stable small pulmonary nodules measuring 2 mm or less, likely be nign. Consider follow-up low dose CT chest in 12 months. Reviewed, dictated and finalized at location A. IMPRESSION: 1. No acute cardiopulmonary disease. Stable small pulmonary nodules measuring 2 mm or less, likely benign. Consider follow-up low dose CT chest in 12 months.
[2021-11-26 12:55] LABS: Estimated Glomerular Filt Rate 55
== END 2021-11-26 12:30 | disposition home or self-care (01) ==
LOC: ANHIMG 12:31
PROVIDERS: PCP Internal Medicine; Visit Provider Nurse Practitioner
DX: R07.9 Chest pain, unspecified (principal)
CPT/HCPCS: 71260; Q9967

== ENCOUNTER 2022-02-24 10:32 | Outpatient (CLI) | payer MEDICARE, MEDICAID, SELFPAY ==
[2022-02-24 11:54] LABS: Hemoglobin A1C 6.2 % (<5.7)
[2022-02-24 11:55] LABS: Alanine Aminotransferase 29 U/L (6-35); Albumin Level 4.1 g/dL (3.5-5.1); Alkaline Phosphatase 137 U/L (38-126); Anion Gap 11 mmol/L (8-16); Aspartate Amino Transferase 33 U/L (14-36); Bilirubin,Total 0.7 mg/dL (0.2-1.3); Blood Urea Nitrogen 26 mg/dL (7-17); Calcium 8.7 mg/dL (8.4-10.2); Carbon Dioxide 29 mmol/L (22-30); Chloride 98 mmol/L (98-107); Cholesterol 124 mg/dL (0-200); Estimated Glomerular Filt Rate 49; Glucose 108 mg/dL (65-110); HDL Direct 33 mg/dL; Potassium 3.8 mmol/L (3.4-5.0); Sodium 138 mmol/L (137-145); Triglycerides 224 mg/dL (<150)
[2022-02-24 12:06] LABS: LDL Cholesterol Direct 53 mg/dL
== END 2022-02-24 10:33 | disposition home or self-care (01) ==
PROVIDERS: PCP Internal Medicine; Referring Provider Internal Medicine Cardiovascular Disease; Visit Provider Nurse Practitioner
DX: R73.02 Impaired glucose tolerance (oral) (principal); E78.5 Hyperlipidemia, unspecified; F32.9 Major depressive disorder, single episode, unspecified
CPT/HCPCS: 36415; 80053; 80061; 83036; 84443

== ENCOUNTER 2022-03-11 10:08 | Outpatient (CLI) | payer MEDICARE, MEDICAID, SELFPAY ==
--- NOTE | ~2022-03-11 | MM_ITS ---
EXAMINATION: MM screening sherry BI w carmen HISTORY: Screening mammogram TECHNIQUE: Craniocaudal and mediolateral oblique 3-D tomosynthesis images were obtained and synthetic 2-D images were generated. CAD analysis was submitted and interpreted. COMPARISON: 07/09/2020, 12/13/2017 bilateral screening mammogram examinations BREAST PARENCHYMAL COMPOSITION: The breasts are almost entirely fatty. FINDINGS: Numerous scattered bilateral benign calcifications are again noted. There is no evidence of suspicious mass, calcification, or architectural distortion to suggest malignancy in either breast. There has been no suspicious interval change. IMPRESSION: 1. No mammographic evidence of malignancy. 2. Recommend routine screening mammography in one year. BI-RADS Category 2: Benign finding(s). Reviewed, dictated and finalized at location A. DRIER
== END 2022-03-11 10:09 | disposition home or self-care (01) ==
PROVIDERS: PCP Internal Medicine; Visit Provider Internal Medicine
DX: Z12.31 Encounter for screening mammogram for malignant neoplasm of breast (principal)
CPT/HCPCS: 77063; 77067

== ENCOUNTER 2022-04-06 17:01 | Emergency (ER) | payer MEDICARE, MEDICAID, SELFPAY ==
--- NOTE | ~2022-04-06 | XR_ITS ---
EXAMINATION: XR chest 2V DATE: 04/06/2022 17:35 INDICATION: Cough and shortness of breath TECHNIQUE: PA and lateral views of the chest are obtained. COMPARISON: 07/01/2017 FINDINGS: The lungs are free of acute opacities. No pleural effusion or pneumothorax. The cardiomedia stinal silhouette is normal. There is moderate thoracic spondylosis. Calcified pulmonary nodules are consistent with old granulomatous disease. IMPRESSION: 1. No acute cardiopulmonary abnormality. Reviewed, dictated and finalized at location F. OPHANE WORKER
[2022-04-06 17:10] VITALS: BP 115/68; PULSE 91; RESP 16; TEMP 36.3; O2SAT 96
--- NOTE | 2022-04-06 17:28 | ED.URI ---
HPI - URI/Sore Throat General Chief Complaint: Upper Respiratory Infection Stated Complaint: cough/sob Time Seen by Provider: 04/06/22 17:13 Source: patient Mode of arrival: ambulatory Limitations: no limitations History of Present Illness HPI Narrative: Ms. Zarate is a 59-year-old female patient presenting to the clinic today with complaints of cough and shortness of breath for the past week. She reports that her director of home economics contacted her today after she called the office and stated that he wanted her to be evaluated and he expressed care for COVID/flu. She reports she is bringing up some yellowish tinge phlegm. She denies any fever or chills. She is wearing home O2 MD elicited complaint: sore throat and nasal congestion Related Data Home Medications Medication Instructions Recorded Confirmed diltiazem HCl 120 mg 120 mg PO DAILY 02/17/21 04/06/22 capsule,extended release 24 hr albuterol sulfate 90 mcg/actuation 1 inh inhalation Q4H 07/12/21 04/06/22 aerosol inhaler aspirin 81 mg tablet,delayed 81 mg PO DAILY 07/12/21 04/06/22 release (Adult Aspirin Regimen) torsemide 20 mg tablet 20 mg PO QAM 07/12/21 04/06/22 cyanocobalamin (vitamin B-12) 500 500 mcg PO DAILY 08/10/21 04/06/22 mcg tablet famotidine 40 mg tablet 40 mg PO QHS 08/10/21 04/06/22 multivitamin 1 tablet PO DAILY 08/10/21 04/06/22 spironolactone 50 mg tablet 50 mg PO DAILY 02/28/22 04/06/22 Allergies Allergy/AdvReac Type Severity Reaction Status Date / Time Cephalosporins Allergy Severe RESPIRTORY Verified 04/06/22 17:17 DISTRESS tetracycline Allergy Mild RASH Verified 04/06/22 17:17 cefaclor Allergy Unknown hives Verified 04/06/22 17:17 codeine Allergy Unknown Nausea Verified 04/06/22 17:17 doxycycline Allergy Unknown Hives Verified 04/06/22 17:17 inositol Allergy Unknown Hives Verified 04/06/22 17:17 niacin Allergy Unknown Hives Verified 04/06/22 17:17 Review of Systems Review of Systems: Pertinent positives per HPI. Patient denies any fever, chills, rash, headache, visual changes, dizziness, chest pain, palpitations, nausea, vomiting, diarrhea, constipation, abdominal pain, or any urinary issues. [facility] Past Medical History Medical History Breast abscess Cholecystectomy planned Depression Essential (primary) hypertension History of kidney stones Mixed hyperlipidemia Obstructive sleep apnea Surgical History Surgical History H/O breast surgery H/O carotid endarterectomy H/O colonoscopy H/O removal of cyst H/O: hysterectomy History of oophorectomy Family History Family History Father Family history of obesity Hypertension Family history of diabetes mellitus in first degree relative Family history of arthritis Family history of chronic obstructive pulmonary disease Mother Family history of obesity Hypertension Asthma Family history of diabetes mellitus in first degree relative Family history of coronary artery disease Diabetes mellitus Social History Social History Smoking packs per day: 1 Smoking cigarettes per day: 20.0 Years smoked: 40 Smoking pack-years: 40.00 Smoking status: Former smoker Tobacco type: cigarettes Second hand tobacco smoke exposure: No Smoking end date: 08/14/20 Alcohol intake: never Substance use: never Substance use type: does not use Lack of Transportation: No Lack of Food: Never True Current Housing: I Have Housing Concerned About Future Housing: No Difficulty Paying Gas/Electric Bills: No Difficulty Paying for Meds: No Currently Unemployed: No Education: Trade/Vocational Certificate Difficulty w/ Childcare or Family Care: No Gender identity (if verbalized by the patient): Female Comments At the ti
== END 2022-04-06 17:58 | disposition home or self-care (01) ==
PROVIDERS: Emergency Provider Nurse Practitioner Family
DX: J44.1 Chronic obstructive pulmonary disease with (acute) exacerbation (principal); J06.9 Acute upper respiratory infection, unspecified; Z20.822 Contact with and (suspected) exposure to COVID-19; Z87.891 Personal history of nicotine dependence; I10 Essential (primary) hypertension; E78.2 Mixed hyperlipidemia; F32.A Depression, unspecified; Z79.82 Long term (current) use of aspirin
CPT/HCPCS: 71046; 87426; 87804; 99213; C9803; G0463

== ENCOUNTER 2022-06-07 12:54 | Outpatient (CLI) | payer MEDICARE, MEDICAID, SELFPAY ==
--- NOTE | ~2022-06-07 | CT_ITS ---
CT ANGIOGRAM NECK AND HEAD History: Carotid stenosis. Technique: Serial spiral axial images through the head and neck were obtained during arterial phase I V injection of 100 cc of Omnipaque 350. 3-D postprocessing and MIP images were then reconstructed on the remote workstation. Dose reduction technique was used on this scan by utilizing automated exposur e control and iterative reconstruction technique. The dose-length product (DLP) was 1701.33 mGy-cm. COMPARISON: 06/11/2018 CTA neck findings: Bilateral vertebral are patent, without evidence of stenosis or occlusion. Left c ommon carotid, internal carotid, and extracranial carotid artery are patent. No stenosis or occlusion of these vessels. Right common carotid, internal carotid and external carotid arteries are patent. T here is extensive calcified plaque at the proximal right internal carotid artery, with probable high- grade stenosis. The proximal right internal carotid artery demonstrates 90% stenosis relative to the normal distal artery lumen diameter. The proximal left internal carotid artery demonstrates 0% stenos is relative to the normal distal artery lumen diameter. CTA head findings: Distal vertebral arteries, basilar artery, and posterior cerebral arteries are pat ent. Distal internal carotid arteries, middle cerebral arteries, and anterior cerebral arteries are p atent. There is atherosclerotic calcification of the cavernous portions of the distal internal caroti d arteries. No large vessel occlusion. No aneurysm identified. Impression: High-grade stenosis at the proximal right internal carotid artery, as detailed above. Reviewed, dictated and finalized at location . DING MACHINE TENDER Impression: High-grade stenosis at the proximal right internal carotid artery, as detailed above.
== END 2022-06-07 12:55 | disposition home or self-care (01) ==
PROVIDERS: PCP Internal Medicine; Referring Provider Nurse Practitioner; Visit Provider Internal Medicine Cardiovascular Disease
DX: I77.9 Disorder of arteries and arterioles, unspecified (principal); R07.9 Chest pain, unspecified; R06.02 Shortness of breath; I11.0 Hypertensive heart disease with heart failure; I50.9 Heart failure, unspecified; R22.43 Localized swelling, mass and lump, lower limb, bilateral; R42 Dizziness and giddiness; F17.200 Nicotine dependence, unspecified, uncomplicated; G47.33 Obstructive sleep apnea (adult) (pediatric); I65.21 Occlusion and stenosis of right carotid artery
CPT/HCPCS: 70496; 70498; Q9967

== ENCOUNTER 2022-09-22 13:30 | Outpatient (RCR) | payer MEDICARE, MEDICAID, SELFPAY | END 2022-09-22 15:12 | disposition home or self-care (01) | LOC: ANHCPREHAB 13:30 | PROVIDERS: Visit Provider Internal Medicine Cardiovascular Disease | DX: I20.8 Other forms of angina pectoris (principal) | CPT/HCPCS: 93798 ==

== ENCOUNTER 2023-03-04 11:08 | Outpatient (CLI) | payer MEDICARE, MEDICAID, SELFPAY ==
[2023-03-04 11:39] LABS: Hemoglobin A1C 5.5 % (<5.7)
[2023-03-04 11:42] LABS: Alanine Aminotransferase 23 U/L (6-35); Albumin Level 4.2 g/dL (3.5-5.1); Alkaline Phosphatase 132 U/L (38-126); Anion Gap 9 mmol/L (8-16); Aspartate Amino Transferase 51 U/L (14-36); Bilirubin,Total 0.6 mg/dL (0.2-1.3); Blood Urea Nitrogen 32 mg/dL (7-17); Carbon Dioxide 31 mmol/L (22-30); Chloride 100 mmol/L (98-107); Cholesterol 103 mg/dL (0-200); Estimated Glomerular Filt Rate 34; Glucose 125 mg/dL (65-110); HDL Direct 34 mg/dL; Potassium 4.4 mmol/L (3.4-5.0); Sodium 140 mmol/L (137-145); Triglycerides 131 mg/dL (<150)
[2023-03-04 11:52] LABS: LDL Cholesterol Direct 44 mg/dL
== END 2023-03-04 11:09 | disposition home or self-care (01) ==
PROVIDERS: PCP Nurse Practitioner; Visit Provider Nurse Practitioner
DX: E78.5 Hyperlipidemia, unspecified (principal); E11.9 Type 2 diabetes mellitus without complications
CPT/HCPCS: 36415; 80053; 80061; 83036

== ENCOUNTER 2023-09-15 12:49 | Outpatient (CLI) | payer MEDICARE, SELFPAY ==
[2023-09-15 13:21] LABS: Hematocrit 29.3 % (37.0-47.0); Hemoglobin 7.7 g/dL (12.0-15.0); Mean Corpuscular HGB Conc 26.3 g/dl (32-36); Mean Corpuscular Hemoglobin 20.6 pg (26-34); Mean Corpuscular Volume 78.3 fl (80-100); Mean Platelet Volume 8.3 fl (7.4-10.4); Platelet Count Result 690 k/mm3 (150-375); Red Blood Count 3.74 M/mm3 (4.2-5.4)
[2023-09-15 13:32] LABS: Alanine Aminotransferase 19 U/L (6-35); Albumin Level 4.4 g/dL (3.5-5.1); Alkaline Phosphatase 138 U/L (38-126); Anion Gap 7 mmol/L (4-12); Aspartate Amino Transferase 32 U/L (14-36); Bilirubin,Total 0.6 mg/dL (0.2-1.3); Blood Urea Nitrogen 23 mg/dL (7-17); Calcium 9.1 mg/dL (8.4-10.2); Carbon Dioxide 31 mmol/L (22-30); Chloride 100 mmol/L (98-107); Cholesterol 100 mg/dL (0-200); Estimated Glomerular Filt Rate 49; Glucose 113 mg/dL (65-110); HDL Direct 36 mg/dL; Sodium 138 mmol/L (137-145); Triglycerides 145 mg/dL (<150)
[2023-09-15 13:41] LABS: Hemoglobin A1C 5.6 % (<5.7)
[2023-09-15 13:43] LABS: LDL Cholesterol Direct 53 mg/dL
== END 2023-09-15 12:50 | disposition home or self-care (01) ==
PROVIDERS: PCP Nurse Practitioner; Visit Provider Nurse Practitioner
DX: E78.5 Hyperlipidemia, unspecified (principal); R73.02 Impaired glucose tolerance (oral); Z86.79 Personal history of other diseases of the circulatory system
CPT/HCPCS: 36415; 80053; 80061; 83036; 85027

== ENCOUNTER 2023-09-19 15:38 | Outpatient (CLI) | payer MEDICARE, SELFPAY ==
[2023-09-19 17:00] LABS: Iron 36 ug/dL (37-170)
[2023-09-19 17:10] LABS: Percent Iron Saturation 7 % (20-50)
[2023-09-19 17:38] LABS: Ferritin 6.15 ng/mL (11.1-264)
[2023-09-19 18:10] LABS: Folic Acid > 20.0 ng/mL (2.76->20); Vitamin B12 > 1000.0 pg/mL (239-931)
== END 2023-09-19 15:39 | disposition home or self-care (01) ==
PROVIDERS: PCP Nurse Practitioner; Visit Provider Nurse Practitioner
DX: D64.9 Anemia, unspecified (principal)
CPT/HCPCS: 36415; 82607; 82728; 82746; 83540; 83550

== ENCOUNTER 2023-09-26 12:57 | Outpatient (CLI) | payer MEDICARE, SELFPAY ==
[2023-09-26 13:27] LABS: Hematocrit 27.1 % (37.0-47.0); Hemoglobin 7.1 g/dL (12.0-15.0); Mean Corpuscular HGB Conc 26.2 g/dl (32-36); Mean Corpuscular Hemoglobin 20.9 pg (26-34); Mean Corpuscular Volume 79.7 fl (80-100); Mean Platelet Volume 8.6 fl (7.4-10.4); Platelet Count Result 639 k/mm3 (150-375); White Blood Count 15.8 K/mm3 (4.5-10.0)
== END 2023-09-26 12:58 | disposition home or self-care (01) ==
LOC: ANHLAB 12:59
PROVIDERS: PCP Nurse Practitioner; Visit Provider Nurse Practitioner
DX: D64.9 Anemia, unspecified (principal)
CPT/HCPCS: 36415; 85027

== ENCOUNTER 2023-09-27 18:12 | Inpatient (IN) | payer MEDICARE, MEDICAID, SELFPAY ==
[2023-09-27] VITALS (8 sets, daily range): BP systolic 146–185; BP diastolic 42–60; PULSE 69–88; RESP 14–23; TEMP 36.6–37.2; O2SAT 97–99; BMI 51.0
--- NOTE | ~2023-09-27 | XR_ITS ---
XR chest 1V portable Ordering provider: Evelin Juarez MD History: 68 years Female with . Infection, DIZZINESS, WEAKNESS AND HEADACHE X 1 DAY . Comparison: April 06, 2022 FINDINGS: MEDIASTINUM: The cardiac silhouette is slightly enlarged. Congestive nico. LUNGS: No infiltrates, effusions or pneumothorax. Prominent markings bilaterally in the lower lobes. Calcified granuloma in the left upper lobe. OTHER: Degenerative changes of the spine. No free air under the diaphragm. IMPRESSION: Prominent markings in the lower lobes which may indicate bronchiolitis. Follow-up advised. Reviewed, dictated and finalized at location A. IMPRESSION: Prominent markings in the lower lobes which may indicate bronchiolitis. Follow- up advised.
[2023-09-27 18:36] LABS: Hematocrit 27.9 % (37.0-47.0); Hemoglobin 7.6 g/dL (12.0-15.0); Mean Corpuscular HGB Conc 27.2 g/dl (32-36); Mean Corpuscular Hemoglobin 21.3 pg (26-34); Mean Corpuscular Volume 78.2 fl (80-100); Mean Platelet Volume 8.3 fl (7.4-10.4); Platelet Count Result 689 k/mm3 (150-375); Red Blood Count 3.57 M/mm3 (4.2-5.4); Red Cell Distribution Width 22.4 % (11.5-14.5); White Blood Count 21.6 K/mm3 (4.5-10.0)
[2023-09-27 18:46] LABS: Alanine Aminotransferase 18 U/L (6-35); Albumin Level 4.5 g/dL (3.5-5.1); Alkaline Phosphatase 153 U/L (38-126); Anion Gap 9 mmol/L (4-12); Aspartate Amino Transferase 37 U/L (14-36); Bilirubin,Total 0.6 mg/dL (0.2-1.3); Blood Urea Nitrogen 34 mg/dL (7-17); Calcium 9.1 mg/dL (8.4-10.2); Carbon Dioxide 31 mmol/L (22-30); Chloride 96 mmol/L (98-107); Estimated CRCL calculation 48 ml/min; Estimated Glomerular Filt Rate 45; Glucose 115 mg/dL (65-110); Potassium 4.1 mmol/L (3.4-5.0); Sodium 136 mmol/L (137-145)
[2023-09-27 19:04] LABS: Anisocytosis 3+; Basophils Absolute Manual 0.43 K/mm3 (0.0-0.1); Basophils Percent Manual 2 % (0-1); Hypochromasia 1+; Lymphocytes Absolute Manual 1.08 K/mm3 (1.1-4.5); Monocytes Absolute Manual 1.72 K/mm3 (0.1-0.90); Monocytes Percent Manual 8 % (3-9); Neutrophils Percent Manual 85 % (46-73); Nucleated Red Blood Cells 3 %; Platelet Estimate Increased (Adequate); Schistocytes 3+; Total Cells Counted 100
[2023-09-27 20:22] LABS: Appearance Urine Clear (Clear); Bacteria Urine None Seen /hpf; Bilirubin Urine Negative (Negative); Blood Urine Negative (Negative); Color Urine Yellow (Yellow); Glucose Urine UA Negative (Negative); Ketones Urine Negative (Negative); Leukocyte Esterase Ur Trace LEU/UL (Negative); Nitrate Urine Negative (Negative); Non Pathogenic Casts 0-2; Protein Urine Negative (Negative); RBC Urine 0-2 /hpf (0-2); Specific Grav Ur 1.012 (1.001-1.035); Squamous Epithelial Cell Urine None Seen /hpf (Few); Urobilinogen Urine 0.2 mg/dL (<2.0); WBC Urine 0-5 /hpf (0-3); pH Urine 5.5 (5.0-9.0)
[2023-09-27 20:24] LABS: Add Urine Microscopic? YES
--- NOTE | 2023-09-27 21:02 | ED.GENADULT ---
HPI - General Adult General Chief complaint: Recheck/Abnormal Lab/Rx Stated complaint: low hgb Time Seen by Provider: 09/27/23 19:17 History of Present Illness HPI narrative: Patient is a 68-year-old female who presents to the emergency department this evening after being sent in by her dictating machine typist due to a low hemoglobin. Patient states that she is scheduled to have an upper and lower endoscopy performed within the next week and they have been monitoring her hemoglobin for the past few weeks and it has been persistently sitting and 7. Patient denies any history of iron deficiency anemia. Admits that she is on clopidogrel and denies any recent black stools. Patient states that she does have intermittent black stools but has not noticed any melena or hematochezia recently. She is currently on any abdominal but admits to feeling fatigued, more tired, and more short of breath despite using her home oxygen. Related Data Home Medications Medication Instructions Recorded Confirmed albuterol sulfate 90 mcg/actuation 1 inh inhalation Q4H 07/12/21 09/20/23 aerosol inhaler cyanocobalamin (vitamin B-12) 500 500 mcg PO DAILY 08/10/21 09/20/23 mcg tablet multivitamin 1 tablet PO DAILY 08/10/21 09/20/23 spironolactone 50 mg tablet 50 mg PO DAILY 02/28/22 09/20/23 torsemide 20 mg tablet 60 mg PO QAM 07/01/22 09/20/23 empagliflozin 25 mg tablet 25 mg PO DAILY 08/30/22 09/20/23 (Jardiance) aspirin 81 mg tablet,delayed 81 mg PO DAILY 03/14/23 09/20/23 release (Adult Low Dose Aspirin) clopidogrel 75 mg tablet 75 mg PO DAILY 03/14/23 09/20/23 diltiazem HCl 120 mg 360 mg PO DAILY 03/14/23 09/20/23 capsule,extended release 24 hr Allergies Allergy/AdvReac Type Severity Reaction Status Date / Time Cephalosporins Allergy Severe RESPIRTORY Verified 09/20/23 13:34 DISTRESS tetracycline Allergy Mild RASH Verified 09/20/23 13:34 cefaclor Allergy Unknown hives Verified 09/20/23 13:34 codeine Allergy Unknown Nausea Verified 09/20/23 13:34 doxycycline Allergy Unknown Hives Verified 09/20/23 13:34 inositol Allergy Unknown Hives Verified 09/20/23 13:34 niacin Allergy Unknown Hives Verified 09/20/23 13:34 Review of Systems Review of Systems: All systems are reviewed and are negative unless stated otherwise in the HPI. PMFSH Past Medical History Medical History Breast abscess Cholecystectomy planned Depression Essential (primary) hypertension History of kidney stones Mixed hyperlipidemia Obstructive sleep apnea Smoking Type 2 diabetes mellitus Surgical History Surgical History H/O breast surgery H/O carotid endarterectomy H/O colonoscopy H/O removal of cyst H/O: hysterectomy History of oophorectomy Family History Family History Father Family history of obesity Hypertension Family history of diabetes mellitus in first degree relative Family history of arthritis Family history of chronic obstructive pulmonary disease Mother Family history of obesity Hypertension Asthma Family history of diabetes mellitus in first degree relative Family history of coronary artery disease Diabetes mellitus Social History Social History Smoking packs per day: 1 Smoking cigarettes per day: 20.0 Years smoked: 30 Smoking pack-years: 30.00 Smoking status: Former smoker Tobacco type: cigarettes Second hand tobacco smoke exposure: No Smoking end date: 08/14/20 Alcohol intake: current Alcohol use details: occasionally Substance use: never Substance use type: does not use Lack of Transportation: No Lack of Food: Never True Current Housing: I Have Housing Concerned About Future Housing: No Difficulty Paying Gas/Electric Bills: No Difficulty Paying for Meds: No Cur
--- NOTE | 2023-09-27 21:16 | PM.IMHP ---
H&P: HPI History of Present Illness Date/Time: 09/27/23 21:16 Chief Complaint: weakness Narrative: this is a 68-year-old female with past medical history significant for morbid obesity, type diabetes mellitus, chronic kidney disease, obstructive sleep apnea, dyslipidemia, tobacco dependence. Patient is being evaluated for blood loss anemia she has become very weak, has had lightheadedness, palpitations, fatigue, her hemoglobin has dropped 3 g from her baseline. Her gastroenterology sent her to the emergency room to be admitted for blood transfusion and endoscopy and colonoscopy in the inpatient setting. Patient denies hematemesis coffee-ground emesis melena bright red blood per rectum. In emergency room patient was found to have a hemoglobin of 7. Patient has been admitted for further evaluation management and treatment. Review of Systems Review of Systems: Low hemoglobin fatigue palpitations lightheadedness Constitutional: Constitutional: Denies chills, Reports fatigue, Denies fever(s), Reports lethargy, Denies night sweats and Reports weakness Eyes: Eyes: Denies change in vision ENT: Denies dysphagia and Denies odynophagia Cardiovascular: Cardiovascular: Denies chest pain, Denies radiating jaw, neck or arm pain and Denies palpitations Respiratory: Respiratory: Denies cough, Denies dyspnea and Denies wheezing Gastrointestinal: Gastrointestinal: Denies abdominal pain, Denies melena, Denies hematochezia and Denies coffee ground emesis Genitourinary: Genitourinary: Denies dysuria Musculoskeletal: Musculoskeletal: Denies myalgias Integumentary/Breasts: Skin/Breast: Denies rash Neurologic: Denies focal weakness and Denies Sensory deficit (Neuro) Psychiatric: Psychiatric: Reports no additional psychiatric complaints and Reports as per HPI Endocrine: Endocrine: Denies cold intolerance, Denies heat intolerance, Denies polyphagia, Denies polydipsia and Denies polyuria Hematologic/Lymphatic: Hematologic/Lymphatic: Reports no additional hematologic/lymphatic complaints and Reports as per HPI Allergic/Immunologic: Allergic/Immunologic: Reports no additional allergic/immunologic complaints and Reports as per HPI PMFSH Past Medical History Medical History Breast abscess Cholecystectomy planned Depression Essential (primary) hypertension History of kidney stones Mixed hyperlipidemia Obstructive sleep apnea Smoking Type 2 diabetes mellitus Surgical History Surgical History H/O breast surgery H/O carotid endarterectomy H/O colonoscopy H/O removal of cyst H/O: hysterectomy History of oophorectomy Family History Family History Father Family history of obesity Hypertension Family history of diabetes mellitus in first degree relative Family history of arthritis Family history of chronic obstructive pulmonary disease Mother Family history of obesity Hypertension Asthma Family history of diabetes mellitus in first degree relative Family history of coronary artery disease Diabetes mellitus Social History Social History Smoking packs per day: 1 Smoking cigarettes per day: 20.0 Years smoked: 50 Smoking pack-years: 50.00 Smoking status: Former smoker Tobacco type: cigarettes Second hand tobacco smoke exposure: No Smoking end date: 09/15/22 Alcohol intake: former Alcohol use details: occasionally Substance use: never Substance use type: does not use Do You Feel Safe in your Home?: Yes Lack of Transportation: No Lack of Food: Never True Current Housing: I Have Housing Concerned About Future Housing: Decline to Answer Difficulty Paying Gas/Electric Bills: No Difficulty Paying for Meds: No Currently Unemployed: No Education: High School Diploma/
[2023-09-27] MEDS: TUBING, BLOOD PLUM PUMP TUBING 1 EACH XX (22:36)
[2023-09-27] MEDS: SODIUM CHLORIDE 0.9% IV 250 ML 30 ML IV CONT (22:37)
[2023-09-27] MEDS: BISACODYL 5 MG TABLET EC 20 MG PO (22:52)
--- NOTE | 2023-09-27 23:15 | ADMGEN ---
This patient, Nadya Zarate, was admitted to IMU Room 206-02. Patient/family oriented to hospital policies and general routines including ID bracelet, bed and alarms, visiting hours, pain management, procedures, bathroom and other care routines, personal items, smoking policy, room service/diet, and visiting hours. Information on how to activate the Rapid Response Team has been discussed. Patient/Family are encouraged to report perceived risks to care and to ask questions if they do not understand what they are told or what they should do.
[2023-09-27] MEDS: polyethylene glycoL 3350 238 GM BOTTLE PO (23:30)
[2023-09-28] VITALS (24 sets, daily range): BP systolic 133–189; BP diastolic 43–82; PULSE 60–86; RESP 18–23; TEMP 35.6–36.6; O2SAT 95–100
[2023-09-28] MEDS: ONDANSETRON INJ 4 MG/2 ML VIAL IV PUSH (00:50)
--- NOTE | 2023-09-28 00:51 | ADMGEN ---
This patient, Nadya Zarate, was admitted to IMU Room 206-02 on 09/27/23 at 2312. Patient/family oriented to hospital policies and general routines including ID bracelet, bed and alarms, visiting hours, pain management, procedures, bathroom and other care routines, personal items, smoking policy, room service/diet, and visiting hours. Information on how to activate the Rapid Response Team has been discussed. Patient/Family are encouraged to report perceived risks to care and to ask questions if they do not understand what they are told or what they should do.
[2023-09-28] MEDS: LACTATED RINGERS 1,000 ML 150 ML IV CONT (10:57)
--- NOTE | 2023-09-28 11:19 | WPDANESEPPF ---
Anes - Initial Pre Proc Eval Procedure: Operation Date: 09/28/23 16:00 Proposed Procedures p Esophagogastroduodenoscopy & Colonoscopy - Gurpreet Vázquez MD Date/Time: 09/28/23 11:19 Surgeon: Luis Eduardo Aly MD Pre Op Diagnosis: Blood loss anemia Patient Data Age: 68 Gender: F Height: 1.55 m Weight: 122.4 kg Last Vital Signs Temp 97 F L 09/28/23 11:00 Pulse 74 09/28/23 11:00 Resp 18 09/28/23 11:00 BP 161/43 H 09/28/23 11:00 Pulse Ox 97 09/28/23 11:00 O2 Del Method Room Air 09/28/23 11:00 O2 Flow Rate 2 09/28/23 09:17 Allergies Allergy/AdvReac Type Severity Reaction Status Date / Time Cephalosporins Allergy Severe RESPIRTORY Verified 09/28/23 10:47 DISTRESS tetracycline Allergy Mild RASH Verified 09/28/23 10:47 cefaclor Allergy Unknown hives Verified 09/28/23 10:47 codeine Allergy Unknown Nausea Verified 09/28/23 10:47 doxycycline Allergy Unknown Hives Verified 09/28/23 10:47 inositol Allergy Unknown Hives Verified 09/28/23 10:47 niacin Allergy Unknown Hives Verified 09/28/23 10:47 Home Medications Medication Instructions Recorded Confirmed Type albuterol sulfate 90 mcg/actuation 1 inh inhalation Q4H PRN Shortness 07/12/21 09/27/23 History aerosol inhaler Of Breath Or Wheezing cyanocobalamin (vitamin B-12) 500 500 mcg PO DAILY 08/10/21 09/27/23 History mcg tablet multivitamin 1 tablet PO DAILY 08/10/21 09/27/23 History spironolactone 50 mg tablet 50 mg PO DAILY 02/28/22 09/27/23 History torsemide 20 mg tablet 60 mg PO QAM 07/01/22 09/27/23 History ezetimibe 10 mg tablet (Zetia) 10 mg PO DAILY #90 tabs 02/23/23 09/27/23 Rx aspirin 81 mg tablet,delayed 81 mg PO DAILY 03/14/23 09/27/23 History release (Adult Low Dose Aspirin) clopidogrel 75 mg tablet 75 mg PO DAILY 03/14/23 09/27/23 History fluoxetine 40 mg capsule 40 mg PO DAILY #90 caps 09/20/23 09/27/23 Rx alprazolam 0.25 mg tablet 0.25 mg PO BID anxiety 09/27/23 09/27/23 History atorvastatin 80 mg tablet 80 mg PO DAILY 09/27/23 09/27/23 History diltiazem HCl 360 mg 360 mg PO DAILY 09/27/23 09/27/23 History capsule,extended release 24 hr empagliflozin 25 mg tablet 25 mg PO DAILY 09/27/23 09/27/23 History (Jardiance) ferrous sulfate 325 mg (65 mg 325 mg PO DAILY 09/27/23 09/27/23 History iron) tablet nystatin 100,000 unit/gram topical 1 applic topical TID 09/27/23 09/27/23 History cream pantoprazole 40 mg tablet,delayed 40 mg PO QAM AND QHS 09/27/23 09/27/23 History release loratadine 10 mg tablet 10 mg PO DAILY 09/28/23 09/28/23 History lorazepam 0.5 mg tablet 0.5 mg PO USEASDIRECTD PRN Anxiety 09/28/23 09/28/23 History magnesium oxide 400 mg (241.3 mg 400 mg PO DAILY PRN Constipation 09/28/23 09/28/23 History magnesium) tablet metformin 500 mg tablet 500 mg PO DAILY 09/28/23 09/28/23 History metoprolol succinate 25 mg 25 mg PO DAILY 09/28/23 09/28/23 History tablet,extended release 24 hr naloxone 4 mg/actuation nasal 1 spray intranasal Q2-3M PRN 09/28/23 09/28/23 History spray (Narcan) Opioid Reversal omeprazole 40 mg capsule,delayed 40 mg PO DAILY 09/28/23 09/28/23 History release ondansetron HCl 4 mg tablet 4 mg PO Q8H 09/28/23 09/28/23 History ondansetron HCl 8 mg tablet 8 mg PO HS 09/28/23 09/28/23 History oxycodone 5 mg tablet 5 mg PO Q6H PRN pain 09/28/23 09/28/23 History potassium chloride 20 mEq 20 meq PO DAILY 09/28/23 09/28/23 History tablet,extended release sacubitril 24 mg-valsartan 26 mg 1 tablet PO BID 09/28/23 09/28/23 History tablet (Entresto) sitagliptin phosphate 50 mg tablet 50 mg PO DAILY 09/28/23 09/28/23 History (Januvia) torsemide 10 mg tablet 10 mg PO BID 09/28/23 09/28/23 History Laboratory Tests 09/27/23 09/27/23 18:30 20:13 WBC 21.6 H K/mm3 (4.5-10.0) RBC 3.57 L M/mm3 (4.2-5.4) Hgb 7.6 L g/dL (12.0-15.0) Hct 27.9 L % (37.0-47.0) MCV 78.2 L fl (80-100) MCH 21.3 L pg (26-34)
--- NOTE | 2023-09-28 11:37 | WPDGICN ---
Assessment and Plan Assessment and plan (1) Acute blood loss anemia: Code(s): D62 - Acute posthemorrhagic anemia Status: Acute Assessment and Plan: it seems that she has slow GIB but she is symptomatic now discontinue nsaid's, plavix on hold now s/p blood transfusion egd and colonoscopy now, assess if avm, pud, malignancy, etc (2) Carotid artery disease: Qualifiers: Carotid artery disease type: stenosis Laterality: right Qualified Code(s): I65.21 - Occlusion and stenosis of right carotid artery Code(s): I73.9 - Peripheral vascular disease, unspecified Status: Acute Assessment and Plan: on plavix- on hold for now (3) COPD (chronic obstructive pulmonary disease): Code(s): J44.9 - Chronic obstructive pulmonary disease, unspecified Status: Acute (4) Type 2 diabetes mellitus: Qualifiers: Diabetes mellitus snf insulin use: without terminal supervisor use Diabetes mellitus complication status: without complication Qualified Code(s): E11.9 - Type 2 diabetes mellitus without complications Code(s): E11.9 - Type 2 diabetes mellitus without complications Status: Acute GI Consult Note Consult date/time: 09/28/23 11:37 Reason for consult: symptomatic anemia HPI: Nadya Zarate is a 68 year old female with past medical history significant for morbid obesity, type diabetes mellitus, chronic kidney disease, obstructive sleep apnea, PAD s/p stent in carotid artery more than 1 year ago on plavix, since she has been feeling tired and weaker than usual. PCP obtained blood work that revealed progressive anemia, she has been feeling weak, persistent lightheadedness, palpitations, and her hemoglobin has dropped 3 g from her baseline. About 3 weeks ago she had episode of dark stool but other than that no blood in stools, her last colonoscopy about 6 years ago. Because persistent symptom of generalized weakness and feeling lightheaded she came to ER, hemoglobin 7 and given blood transfusion. Until recently she has been taking nsaid's because back pain, her PCP advised to discontinue. Review of Systems Constitutional: Constitutional: Reports lethargy and Reports weakness Eyes: Eyes: Denies blurry vision ENT: Reports Normal hearing present Cardiovascular: Cardiovascular: Reports lightheadedness Respiratory: Respiratory: Reports dyspnea on exertion Gastrointestinal: Gastrointestinal: Denies bloating Genitourinary: Genitourinary: Denies dysuria Musculoskeletal: Musculoskeletal: Reports back pain (chronic, not longer using nsaid's) Integumentary/Breasts: Skin/Breast: Denies rash Neurologic: Denies confusion Psychiatric: Psychiatric: Denies behavioral changes [facility] Past Medical History Medical History Breast abscess Cholecystectomy planned Depression Essential (primary) hypertension History of kidney stones Mixed hyperlipidemia Obstructive sleep apnea Smoking Type 2 diabetes mellitus Surgical History Surgical History H/O breast surgery H/O carotid endarterectomy H/O colonoscopy H/O removal of cyst H/O: hysterectomy History of oophorectomy Family History Family History Father Family history of obesity Hypertension Family history of diabetes mellitus in first degree relative Family history of arthritis Family history of chronic obstructive pulmonary disease Mother Family history of obesity Hypertension Asthma Family history of diabetes mellitus in first degree relative Family history of coronary artery disease Diabetes mellitus Social History Social History Smoking packs per day: 1 Smoking cigarettes per day: 20.0 Years smoked: 50 Smoking pack-years: 50.00 Smoking status: Former smoker Tobacc
--- NOTE | 2023-09-28 12:01 | SUR.OPER ---
EGD ended 1155 colonoscopy started 1201
--- NOTE | 2023-09-28 12:24 | PM.IMPN ---
Progress Note: A&P Assessment and Plan (1) Acute blood loss anemia: Code(s): D62 - Acute posthemorrhagic anemia Status: Acute (2) Anemia: Qualifiers: Anemia type: iron deficiency Iron deficiency anemia type: unspecified iron deficiency Qualified Code(s): D50.9 - Iron deficiency anemia, unspecified Code(s): D64.9 - Anemia, unspecified Status: Acute (3) Oxygen dependent: Code(s): Z99.81 - Dependence on supplemental oxygen Status: Acute (4) Elevated WBC count: Code(s): D72.829 - Elevated white blood cell count, unspecified Status: Acute Plan 68 year old female with past medical history significant for morbid obesity, type diabetes mellitus, chronic kidney disease, obstructive sleep apnea, PAD s/p stent in carotid artery more than 1 year ago on plavix, since she has been feeling tired and weaker than usual. PCP obtained blood work that revealed progressive anemia, she has been feeling weak, persistent lightheadedness, palpitations, and her hemoglobin has dropped 3 g from her baseline. About 3 weeks ago she had episode of dark stool but other than that no blood in stools, her last colonoscopy about 6 years ago. Because persistent symptom of generalized weakness and feeling lightheaded she came to ER, hemoglobin 7 and given blood transfusion. 1. Anemia: Status post 1 unit of PRBC Await GI consult NPO PPI No NSAIDs, aspirin and Plavix on hold 2. History of COPD: Stable Continue with O2 support Will continue with albuterol 3. DVT prophylaxis: SCDs 4. Code status: Full 5. Disposition: Pending improvement Time Spent With Patient Time with patient: 15 - 25 minutes Subjective Date/time seen: 09/28/23 12:24 Interval history: No acute events overnight Review of Systems Review of Systems: All systems reviewed & are unremarkable except as noted in HPI and below Exam Const: General: comfortable HENMT: Mouth: Yes moist mucous membranes Eyes: Sclera: sclerae normal Neck: Neck: supple Resp: Effort & Inspection: normal respiratory effort Auscultation: diminished lung sounds Other: On O2 support, home oxygen Cardio: Rate: regular rate Rhythm: regular rhythm GI: GI Palp: Yes Soft to palpation Auscultation: normal bowel sounds Skin: General skin exam: normal color Neuro: Speech: normal speech Extrem: General: normal to inspection and edema Psych: Mental Status: mental status grossly normal Objective Data Vital Signs Vital Signs: Vital Signs - 24 hr 09/27/23 18:27 09/27/23 19:15 09/27/23 19:48 Temperature 97.8 F Pulse Rate 85 81 Respiratory Rate 14 19 Blood Pressure 171/58 H 146/42 H Pulse Oximetry 99 98 99 Oxygen Delivery Nasal Cannula Oxygen Flow Rate 2 09/27/23 22:24 09/27/23 22:35 09/27/23 22:43 Temperature 97.9 F 97.9 F Pulse Rate 88 86 72 Respiratory Rate 19 17 17 Blood Pressure 185/60 H 156/44 H 149/51 H Pulse Oximetry 99 99 99 Oxygen Delivery Oxygen Flow Rate 09/27/23 23:15 09/28/23 00:00 09/28/23 00:00 Temperature 99.0 F Pulse Rate 69 69 69 Respiratory Rate 23 H 23 H Blood Pressure 177/47 H Pulse Oximetry 97 97 Oxygen Delivery Nasal Cannula Oxygen Flow Rate 2 09/28/23 00:50 09/27/23 23:40 09/28/23 02:00 Temperature 96.9 F L 99 F Pulse Rate 68 69 77 Respiratory Rate 18 23 H Blood Pressure 186/82 H 177/47 H Pulse Oximetry 97 97 Oxygen Delivery Oxygen Flow Rate 09/28/23 04:00 09/28/23 04:00 09/28/23 05:28 Temperature 97.6 F Pulse Rate 77 77 65 Respiratory Rate 18 22 H Blood Pressure 133/49 L Pulse Oximetry 97 96 Oxygen Delivery Nasal Cannula Oxygen Flow Rate 2 09/28/23 05:37 09/28/23 08:00 09/28/23 08:00 Temperature Pulse Rate 67 68 Respiratory Rate Blood Pressure Pulse Oximetry 98 Oxygen Delivery Nasal Cannula Oxygen Flow Rate 2 09/28/23 09:17 09/28/23 10:00 09/28/23 11:00 Temperature 97 F L Pu
[2023-09-28] MEDS: ATORVASTATIN 40 MG TABLET 80 MG PO (13:01)
[2023-09-28] MEDS: EMPAGLIFLOZIN 25 MG TABLET PO (13:02)
[2023-09-28] MEDS: FLUoxetine HCL 20 MG CAPSULE 40 MG PO (13:02)
[2023-09-28] MEDS: FERROUS SULFATE 325 MG TABLET DR BY MOUTH (13:02)
[2023-09-28] MEDS: dilTIAZem HCL CD 180 MG CAP.24HR 360 MG PO (13:02)
[2023-09-28] MEDS: PANTOPRAZOLE 40 MG TABLET PO ×2 (13:03→21:18)
[2023-09-28] MEDS: ALPRAZolam (*CRX) 0.25 MG TABLET PO ×2 (13:03→21:18)
[2023-09-29] VITALS (13 sets, daily range): BP systolic 139–164; BP diastolic 43–55; PULSE 58–80; RESP 14–22; TEMP 35.9–36.5; O2SAT 95–100
[2023-09-29 04:28] LABS: Basophils Absolute Auto 0.2 K/mm3 (0.0-0.1); Basophils Percent Auto 1.3 % (0.2-1.2); Eosinophils Absolute Auto 0.1 K/mm3 (0-0.3); Hematocrit 27.6 % (37.0-47.0); Hemoglobin 7.5 g/dL (12.0-15.0); Immature Granulocyte Absolute 0.11 K/mm3 (0.00-0.031); Immature Granulocyte Percent A 0.8 % (0-0.5); Lymphocytes Absolute Auto 1.36 K/mm3 (0.9-3.2); Mean Corpuscular HGB Conc 27.2 g/dl (32-36); Mean Corpuscular Hemoglobin 21.9 pg (26-34); Mean Corpuscular Volume 80.7 fl (80-100); Mean Platelet Volume 8.5 fl (7.4-10.4); Monocytes Absolute Auto 1.1 K/mm3 (0.1-0.6); Monocytes Percent Auto 7.7 % (2.6-8.5); Neutrophils Absolute Auto 10.8 K/mm3 (1.3-6.7); Neutrophils Percent Auto 79.2 % (45.5-73.1); Nucleated Red Blood Cells Perc 0.4 % (0.0-0.2); Platelet Count Result 573 k/mm3 (150-375); Red Blood Count 3.42 M/mm3 (4.2-5.4); Red Cell Distribution Width 22.5 % (11.5-14.5); White Blood Count 13.6 K/mm3 (4.5-10.0)
[2023-09-29 04:40] LABS: Anion Gap 5 mmol/L (4-12); Blood Urea Nitrogen 21 mg/dL (7-17); Calcium 8.7 mg/dL (8.4-10.2); Carbon Dioxide 33 mmol/L (22-30); Chloride 98 mmol/L (98-107); Estimated CRCL calculation 48 ml/min; Estimated Glomerular Filt Rate 45; Glucose 128 mg/dL (65-110); Potassium 3.6 mmol/L (3.4-5.0); Sodium 136 mmol/L (137-145)
[2023-09-29 04:47] LABS: Anisocytosis 1+; Hypochromasia 1+; Ovalocytes 1+; Platelet Estimate Increased (Adequate); Schistocytes None Seen
[2023-09-29 08:16] LABS: Glucose Point of Care 137 mg/dl (65-105)
[2023-09-29] MEDS: PANTOPRAZOLE 40 MG TABLET PO ×2 (08:39→21:29)
[2023-09-29] MEDS: ALPRAZolam (*CRX) 0.25 MG TABLET PO ×2 (08:40→21:29)
[2023-09-29] MEDS: FLUoxetine HCL 20 MG CAPSULE 40 MG PO (08:40)
[2023-09-29] MEDS: EMPAGLIFLOZIN 25 MG TABLET PO (08:40)
--- NOTE | 2023-09-29 11:22 | PM.IMPN ---
Progress Note: A&P Assessment and Plan (1) Acute blood loss anemia: Code(s): D62 - Acute posthemorrhagic anemia Status: Acute (2) Anemia: Qualifiers: Anemia type: iron deficiency Iron deficiency anemia type: unspecified iron deficiency Qualified Code(s): D50.9 - Iron deficiency anemia, unspecified Code(s): D64.9 - Anemia, unspecified Status: Acute (3) JHONY (obstructive sleep apnea): Code(s): G47.33 - Obstructive sleep apnea (adult) (pediatric) Status: Acute (4) Essential (primary) hypertension: Code(s): I10 - Essential (primary) hypertension Status: Acute (5) CHF with left ventricular diastolic dysfunction, NYHA class 1: Code(s): I50.30 - Unspecified diastolic (congestive) heart failure Status: Acute (6) Body mass index (BMI) 45.0-49.9, adult: Code(s): Z68.42 - Body mass index [BMI] 45.0-49.9, adult Status: Acute Plan GI bleed possible lower Colonoscopy noted AV malformation and colonic polyps internal hemorrhoid EGD noted gastritis and gastric AV malformation Use PPI Protonix Watch for dysphagia and sudden weight loss Monitor H&H 7.1/7.6 Stool for occult blood positive IV hydration to continue OBESITY Monitor physical inactivity. Stress monitoring and eating disorder. Referral to weight loss clinic. Sleep apnea evaluation as outpatient BMI Class Diet and exercise counseling done VASILIY cause dehydration versus diabetes serum creatinine 1.2 nephrology consulted Avoid nephrotoxic drugs. Monitor antihypertensive drug therapy. Avoid NSAIDs. Routine CMP monitoring GFR. Monitor electrolytes especially potassium. ANEMIA Iron deficiency anemia. Currently on iron pills at home but restart tomorrow DM Optimize medications Jardiance and insulin Hold Januvia and metformin Routine glucose monitoring. Watch for Hypoglycemia. BMI goal < 25 LDL goal <80 1800 ADA diet Lifestyle modification HB A1c levels pending Antiplatelet therapy aspirin and Plavix on hold due to GI bleed History of hypertension continue diltiazem. Metoprolol History of hyperlipidemia continue Lipitor. History of anxiety continue Xanax. And fluoxetine. Subjective Date/time seen: 09/29/23 11:22 Interval history: Patient appears comfortable denies any fever chills no rectal bleeding this morning waiting for a colonoscopy Review of Systems Review of Systems: All systems reviewed & are unremarkable except as noted in HPI and below Exam Narrative: GENERAL: Well appearing, no acute distress. HEAD: Normocephalic, atraumatic. NECK: Supple. No adenopathy, no masses. RESPIRATORY: respirations nonlabored. , no rales, wheezing. CARDIOVASCULAR: Regular rate and rhythm without murmurs, . Peripheral pulses 2+ and equal bilaterally. ABDOMINAL: Soft, nontender, nondistended, no hepatosplenomegaly. Normoactive BS. MUSCULOSKELETAL: no Epigastric and no hypochondrial tenderness SKIN: Warm, dry, NEURO: A&O X3. Moves all extremities Objective Data Vital Signs Vital Signs: Vital Signs - 24 hr 09/28/23 12:23 09/28/23 12:33 09/28/23 12:43 Temperature Pulse Rate 64 76 74 Respiratory Rate 18 20 20 Blood Pressure 133/59 L 133/59 L 160/61 H Pulse Oximetry 95 95 98 Oxygen Delivery Nasal Cannula Nasal Cannula Nasal Cannula Oxygen Flow Rate 2 2 2 09/28/23 13:05 09/28/23 12:00 09/28/23 16:00 Temperature 36.1 C L 36.3 C L Pulse Rate 72 68 Respiratory Rate 18 20 Blood Pressure 189/74 H 174/49 H Pulse Oximetry 100 97 100 Oxygen Delivery Nasal Cannula Oxygen Flow Rate 2 09/28/23 11:58 09/28/23 16:00 09/28/23 14:00 Temperature Pulse Rate 66 65 71 Respiratory Rate Blood Pressure Pulse Oximetry Oxygen Delivery Oxygen Flow Rate 09/28/23 16:00 09/28/23 18:00 09/28/23 19:42 Temperature 36.6 C Pulse Rate 61 60 Respiratory Rate 20 Blood Pressure 150/43 H Pulse Ox
--- NOTE | 2023-09-29 12:23 | P.PNAN_ITS ---
Anes - Prog Note Post-Op Date/Time: 09/29/23 12:23 Cardiovascular status: normal Respiratory status: normal Airway patency: baseline Mental status: baseline Post-Op hydration status: normal Vital Signs: Last Vital Signs Temp 36.4 C L 09/29/23 11:34 Pulse 67 09/29/23 11:34 Resp 14 09/29/23 11:34 BP 152/52 H 09/29/23 11:34 Pulse Ox 100 09/29/23 11:34 O2 Del Method Nasal Cannula 09/29/23 08:00 O2 Flow Rate 2 09/29/23 08:00 Pain Score (VAS): 05/27 I/O: Intake & Output 09/28/23 09/29/23 09/29/23 23:59 07:59 15:59 Intake Total 1520 400 790 Output Total 1450 Balance 70 400 790 Laboratory Tests 09/29/23 03:55 09/29/23 03:55 09/29/23 09/29/23 03:55 07:40 WBC 13.6 H RBC 3.42 L Hgb 7.5 L Hct 27.6 L MCV 80.7 MCH 21.9 L MCHC 27.2 L RDW 22.5 H Plt Count 573 H MPV 8.5 Immature Gran % (Auto) 0.8 H Neut % (Auto) 79.2 H Lymph % (Auto) 10.0 L [place] % (Auto) 7.7 Eos % (Auto) 1.0 Baso % (Auto) 1.3 H Lymph # (Auto) 1.36 [place] # (Auto) 1.1 H Eos # (Auto) 0.1 Baso # (Auto) 0.2 H Abs Immat Gran (auto) 0.11 H Absolute Neuts (auto) 10.8 H Absolute Nucleated RBC 0.060 H Nucleated RBC % 0.4 H Platelet Estimate Increased Hypochromasia 1+ Anisocytosis 1+ Ovalocytes 1+ Schistocytes None seen Sodium 136 L Potassium 3.6 Chloride 98 Carbon Dioxide 33 H Anion Gap 5 BUN 21 H D Creatinine 1.20 H Estim Creat Clear Calc 48 Estimated GFR 45 L Glucose 128 H POC Capillary Glucose 137 H Hemoglobin A1c Pending Calcium 8.7 Post-procedural complaints: none Patient Feedback: Patient satisfied with anesthetic care.
[2023-09-29 12:29] LABS: Hemoglobin A1C 5.4 % (<5.7)
--- NOTE | 2023-09-29 15:35 | WPDGIPROGNO ---
Progress Note: A&P Assessment and Plan (1) Acute blood loss anemia: Code(s): D62 - Acute posthemorrhagic anemia Status: Acute Assessment and Plan: AVM treated with apc no more signs of bleeding hold plavix for 5 days after scope probably also will benefit to see hematology for anemia management after discharge (2) AVM (arteriovenous malformation) of stomach, acquired: Code(s): K31.819 - Angiodysplasia of stomach and duodenum without bleeding Status: Acute Assessment and Plan: treated (3) JHONY (obstructive sleep apnea): Code(s): G47.33 - Obstructive sleep apnea (adult) (pediatric) Status: Acute (4) GIB (gastrointestinal bleeding): Code(s): K92.2 - Gastrointestinal hemorrhage, unspecified Status: Acute (5) COPD (chronic obstructive pulmonary disease): Code(s): J44.9 - Chronic obstructive pulmonary disease, unspecified Status: Acute Subjective Date/time seen: 09/29/23 15:35 Interval history: AVM in stomach that had spontaneous bleeding and treatd with apc, also non-bleeding avm colon she is doing ok today Review of Systems Review of Systems: All systems reviewed & are unremarkable except as noted in HPI and below Exam Const: General: comfortable and no acute distress Other: obese HENMT: Face/Nose/Sinus: Normal nares present Eyes: General: appearance normal, both eyes and all related structures Neck: Neck: supple Resp: Auscultation: clear to auscultation bilaterally Cardio: Rate: regular rate Rhythm: regular rhythm GI: Inspection: non-distended GI Palp: Yes Soft to palpation and No Tenderness to palpation present (GI) Auscultation: normal bowel sounds Skin: General skin exam: no rashes or lesions noted Neuro: Speech: normal speech Motor exam (neuro): 5/5 motor strength present throughout Extrem: General: normal to inspection Psych: Mental Status: mental status grossly normal Objective Data Vital Signs Vital Signs: Vital Signs - 24 hr 09/28/23 16:00 09/28/23 16:00 09/28/23 16:00 Temperature 97.4 F L Pulse Rate 68 65 Respiratory Rate 20 Blood Pressure 174/49 H Pulse Oximetry 100 97 Oxygen Delivery Nasal Cannula Oxygen Flow Rate 2 09/28/23 18:00 09/28/23 19:42 09/28/23 20:00 Temperature 97.8 F Pulse Rate 61 60 60 Respiratory Rate 20 20 Blood Pressure 150/43 H Pulse Oximetry 97 97 Oxygen Delivery Nasal Cannula Oxygen Flow Rate 2 09/28/23 20:00 09/28/23 21:57 09/28/23 23:20 Temperature 96.0 F L Pulse Rate 68 61 63 Respiratory Rate 20 Blood Pressure 164/44 H Pulse Oximetry 95 Oxygen Delivery Oxygen Flow Rate 09/28/23 23:44 09/29/23 00:00 09/29/23 02:00 Temperature Pulse Rate 63 58 L 60 Respiratory Rate 20 Blood Pressure Pulse Oximetry 95 Oxygen Delivery CPAP Oxygen Flow Rate 2 09/29/23 03:40 09/29/23 04:00 09/29/23 04:00 Temperature 96.6 F L Pulse Rate 60 60 60 Respiratory Rate 20 20 Blood Pressure 140/47 L Pulse Oximetry 95 95 Oxygen Delivery CPAP Oxygen Flow Rate 2 09/29/23 05:56 09/29/23 07:42 09/29/23 08:00 Temperature 97 F L Pulse Rate 59 L 60 64 Respiratory Rate 16 Blood Pressure 164/43 H Pulse Oximetry 100 Oxygen Delivery Oxygen Flow Rate 09/29/23 10:00 09/29/23 08:00 09/29/23 11:34 Temperature 97.5 F L Pulse Rate 72 67 Respiratory Rate 14 Blood Pressure 152/52 H Pulse Oximetry 96 100 Oxygen Delivery Nasal Cannula Oxygen Flow Rate 2 Intake/Output Intake/Output: Intake & Output 09/26/23 09/27/23 09/28/23 09/29/23 23:59 23:59 23:59 23:59 Intake Total 0 2910 1430 Output Total 1450 Balance 0 1460 1430 Meds/Results Medications: Active Medications Generic Name Dose Route Start Last Admin Trade Name Freq PRN Reason Stop Dose Admin Albuterol 1 puff 09/28/23 01:50 Albuterol Sulfate (*Sp) Aerosol 1 Puff INHALATION Q4H PRN Magdalena
[2023-09-29 15:57] LABS: Glucose Point of Care 139 mg/dl (65-105)
[2023-09-29 17:00] LABS: Hematocrit 31.1 % (37.0-47.0); Hemoglobin 8.3 g/dL (12.0-15.0)
[2023-09-29] MEDS: dilTIAZem HCL CD 180 MG CAP.24HR 360 MG PO (21:28)
[2023-09-29] MEDS: ATORVASTATIN 40 MG TABLET 80 MG PO (21:28)
[2023-09-30 04:00] VITALS: BP 145/47; PULSE 60; RESP 16; TEMP 36.4; O2SAT 91
[2023-09-30 04:22] LABS: Basophils Absolute Auto 0.2 K/mm3 (0.0-0.1); Basophils Percent Auto 1.3 % (0.2-1.2); Eosinophils Absolute Auto 0.3 K/mm3 (0-0.3); Hematocrit 29.8 % (37.0-47.0); Hemoglobin 8.1 g/dL (12.0-15.0); Immature Granulocyte Absolute 0.09 K/mm3 (0.00-0.031); Immature Granulocyte Percent A 0.6 % (0-0.5); Lymphocytes Percent Auto 13.4 % (18.3-44.2); Mean Corpuscular HGB Conc 27.2 g/dl (32-36); Mean Platelet Volume 8.4 fl (7.4-10.4); Monocytes Absolute Auto 1.2 K/mm3 (0.1-0.6); Monocytes Percent Auto 8.4 % (2.6-8.5); Neutrophils Absolute Auto 10.6 K/mm3 (1.3-6.7); Neutrophils Percent Auto 74.3 % (45.5-73.1); Nucleated Red Blood Cells Perc 0.4 % (0.0-0.2); Platelet Count Result 596 k/mm3 (150-375); Red Blood Count 3.68 M/mm3 (4.2-5.4); Red Cell Distribution Width 22.6 % (11.5-14.5); White Blood Count 14.2 K/mm3 (4.5-10.0)
[2023-09-30 04:37] LABS: Anion Gap 5 mmol/L (4-12); Blood Urea Nitrogen 20 mg/dL (7-17); Calcium 8.8 mg/dL (8.4-10.2); Carbon Dioxide 31 mmol/L (22-30); Chloride 100 mmol/L (98-107); Estimated CRCL calculation 52 ml/min; Estimated Glomerular Filt Rate 49; Glucose 129 mg/dL (65-110); Potassium 4.1 mmol/L (3.4-5.0); Sodium 136 mmol/L (137-145)
[2023-09-30 04:44] LABS: Anisocytosis 2+; Hypochromasia 1+; Ovalocytes 1+; Platelet Estimate Increased (Adequate); Schistocytes None Seen
[2023-09-30 08:00] VITALS: O2SAT 99
[2023-09-30 08:01] LABS: Glucose Point of Care 121 mg/dl (65-105)
[2023-09-30 08:04] VITALS: BP 155/38; PULSE 66; RESP 16; TEMP 36.2; O2SAT 99
[2023-09-30 08:43] LABS: Procalcitonin 0.1 ng/mL
[2023-09-30] MEDS: FLUoxetine HCL 20 MG CAPSULE 40 MG PO (09:25)
[2023-09-30] MEDS: PANTOPRAZOLE 40 MG TABLET PO (09:25)
[2023-09-30 09:26] VITALS: PULSE 62
[2023-09-30] MEDS: EMPAGLIFLOZIN 25 MG TABLET PO (09:26)
[2023-09-30] MEDS: METOPROLOL SUCCINATE EXT REL 25 MG TABCR PO (09:26)
[2023-09-30] MEDS: ALPRAZolam (*CRX) 0.25 MG TABLET PO (09:26)
[2023-09-30] MEDS: FERROUS SULFATE 325 MG TABLET DR BY MOUTH (09:26)
[2023-09-30] MEDS: MICONAZOLE NITRATE 2% CREAM 30 GM TUBE 1 APPLIC TOPICAL (09:29)
--- NOTE | 2023-09-30 10:29 | PM.DS ---
DS: Admitting Diagnosis Discharge Date September 30, 2023 Admitting Diagnosis Acute on chronic anemia DS: Discharge Diagnosis Discharge Diagnosis (1) Thrombocytosis: Code(s): D75.839 - Thrombocytosis, unspecified Status: Acute (2) AVM (arteriovenous malformation) of stomach, acquired: Code(s): K31.819 - Angiodysplasia of stomach and duodenum without bleeding Status: Acute (3) Acute blood loss anemia: Code(s): D62 - Acute posthemorrhagic anemia Status: Acute DS: Summary Hospital Course Hospital Course: 68-year-old female with past medical history morbid obesity, [id number] diabetes mellitus, CKD, JHONY, P 80 status post stent in left carotid artery on aspirin and Plavix, heart failure preserved ejection fraction, normal EF on surface echocardiogram 06/2021, chronic anemia, chronic thrombocytosis, chronic leukocytosis, depression, hypertension, hyperlipidemia, former smoker, no diagnosed gastritis, AVMs who presents with weakness. About 3 weeks prior she had a episode of a dark stool but that resolved. Last colonoscopy was 6 years ago. She was sent in by her GI due to symptom of generalized weakness and lightheadedness. Hemoglobin found to be 7.1 and her baseline is between 11 and 13. EGD and colonoscopy performed by Dr. Vázquez. A single AVM was found in the body of stomach as well as compartment the duodenum. Each were ablated with APC. Postop the patient did well, tolerating diet. No longer complaining of weakness and wanting to go home. Hemoglobin 8.3/8.1. Therefore, the patient is stable for discharge to home. She has leukocytosis which is chronic. Calcitonin level 0.1. Comprehensive review systems is not revealed symptoms to indicate infection. The patient will have repeat CBC in 2 days with follow-up to her primary care. She also follow-up to Hematology for chronic anemia, leukocytosis, thrombocytosis. She also follow up with Nephrology for mild CKD. Patient has been educated on importance of follow-up to which she agrees. All of her home medications will be resumed including ferrous sulfate 325 mg p.o. q.day., with the exception of aspirin and Plavix which will be held 5 days restarted on MondayOctober 03. Advised follow-up with medical examiner and vascular surgeon as well. Omeprazole placed on hold till further discussion with PCP. She is already on Protonix. The patient was full code during admission. The patient has heart failure with EF greater than 50%. ARNI not indicated. Time Spent with Patient Time attestation: Total time spent providing and/or coordinating discharge services: Exam Const: General: comfortable and no acute distress Other: A&O x3. Obese. Eyes: Pupils: Equal, round and reactive pupils present Neck: Neck: supple Resp: Effort & Inspection: normal respiratory effort Cardio: Rate: regular rate Rhythm: regular rhythm GI: GI Palp: Yes Soft to palpation and No Tenderness to palpation present (GI) Extrem: General: edema (Trace) DS: Data Data Completed and Pending Completed studies during hospitalization: Pending at discharge 09/28/23 12:28 Surgical [PTH] Routine Labs on day of discharge: Labs from last 24 hours 09/30/23 09/30/23 09/30/23 07:54 03:58 03:53 WBC 14.2 H RBC 3.68 L Hgb 8.1 L Hct 29.8 L MCV 81.0 MCH 22.0 L MCHC 27.2 L RDW 22.6 H Plt Count 596 H MPV 8.4 Immature Gran % (Auto) 0.6 H Neut % (Auto) 74.3 H Lymph % (Auto) 13.4 L [place] % (Auto) 8.4 Eos % (Auto) 2.0 Baso % (Auto) 1.3 H Lymph # (Auto) 1.90 [place] # (Auto) 1.2 H Eos # (Auto) 0.3 Baso # (Auto) 0.2 H Abs Immat Gran (auto) 0.09 H Absolute Neuts (auto) 10.6 H Absolute Nucleated RBC 0.050 H Nucleated RBC % 0.4 H Platelet Estimate Increased Hypochromasia 1+ Anisocytosis 2+ Ovalocytes 1+ Schistocytes None seen Sodium 136 L Potassium 4.1 C
--- NOTE | 2023-09-30 11:13 | WPDGIPROGNO ---
Progress Note: A&P Assessment and Plan (1) Acute blood loss anemia: Code(s): D62 - Acute posthemorrhagic anemia Status: Acute Assessment and Plan: AVM treated with apc no more signs of bleeding hold plavix 5 days after scope probably also will benefit to see hematology for anemia management after discharge ok to go home by gi standpoint (2) AVM (arteriovenous malformation) of stomach, acquired: Code(s): K31.819 - Angiodysplasia of stomach and duodenum without bleeding Status: Acute Assessment and Plan: treated (3) JHONY (obstructive sleep apnea): Code(s): G47.33 - Obstructive sleep apnea (adult) (pediatric) Status: Acute (4) GIB (gastrointestinal bleeding): Code(s): K92.2 - Gastrointestinal hemorrhage, unspecified Status: Acute (5) COPD (chronic obstructive pulmonary disease): Code(s): J44.9 - Chronic obstructive pulmonary disease, unspecified Status: Acute Subjective Date/time seen: 09/30/23 11:13 Interval history: no events, doing ok she is feeling like going home Review of Systems Review of Systems: All systems reviewed & are unremarkable except as noted in HPI and below Exam Const: General: comfortable and no acute distress Other: obese HENMT: Face/Nose/Sinus: Normal nares present Eyes: General: appearance normal, both eyes and all related structures Neck: Neck: supple Resp: Auscultation: clear to auscultation bilaterally Cardio: Rate: regular rate Rhythm: regular rhythm GI: Inspection: non-distended GI Palp: Yes Soft to palpation and No Tenderness to palpation present (GI) Auscultation: normal bowel sounds Skin: General skin exam: no rashes or lesions noted Neuro: Speech: normal speech Motor exam (neuro): 5/5 motor strength present throughout Extrem: General: normal to inspection Psych: Mental Status: mental status grossly normal Objective Data Vital Signs Vital Signs: Vital Signs - 24 hr 09/29/23 11:34 09/29/23 15:36 09/29/23 18:36 Temperature 97.5 F L 97.5 F L 97.4 F L Pulse Rate 67 61 66 Respiratory Rate 14 22 H 18 Blood Pressure 152/52 H 139/55 L 147/46 H Pulse Oximetry 100 96 99 Oxygen Delivery Oxygen Flow Rate 09/29/23 23:50 09/29/23 20:00 09/30/23 04:00 Temperature 97.7 F 97.5 F L Pulse Rate 80 60 Respiratory Rate 20 16 Blood Pressure 157/43 H 145/47 H Pulse Oximetry 98 98 91 Oxygen Delivery Nasal Cannula Oxygen Flow Rate 2 09/30/23 08:04 09/30/23 09:26 Temperature 97.1 F L Pulse Rate 66 62 Respiratory Rate 16 Blood Pressure 155/38 H Pulse Oximetry 99 Oxygen Delivery Oxygen Flow Rate Intake/Output Intake/Output: Intake & Output 09/27/23 09/28/23 09/29/23 09/30/23 23:59 23:59 23:59 23:59 Intake Total 0 2910 3320 240 Output Total 1450 Balance 0 1460 3320 240 Meds/Results Medications: Active Medications Generic Name Dose Route Start Last Admin Trade Name Freq PRN Reason Stop Dose Admin Albuterol 1 puff 09/28/23 01:50 Albuterol Sulfate (*Sp) Aerosol 1 Puff INHALATION Q4H PRN Shortness Of Breath Or Wheezing Alprazolam 0.25 mg 09/28/23 21:10 09/30/23 09:26 Alprazolam (*Crx) 0.25 Mg Tablet PO 0.25 mg Q12HR DAYNE Administration Atorvastatin Calcium 80 mg 09/29/23 21:00 09/29/23 21:28 Atorvastatin 40 Mg Tablet PO 80 mg HS DAYNE Administration Diltiazem HCl 360 mg 09/29/23 21:00 09/29/23 21:28 Diltiazem Hcl Cd 180 Mg Cap.24hr PO 360 mg HS DAYNE Administration Empagliflozin 25 mg 09/28/23 09:00 09/30/23 09:26 Empagliflozin 25 Mg Tablet PO 25 mg DAILY DAYNE Administration Ferrous Sulfate 325 mg 09/28/23 09:00 09/30/23 09:26 Ferrous Sulfate [address] BY MOUTH 325 mg DAILY DAYNE Administration Fluoxetine HCl 40 mg 09/28/23 09:00 09/30/23 09:25 Fluoxetine Hcl 20 Mg Capsule PO 40 mg DAILY DAYNE Administration Insulin Aspart 6 units 09/29/23 12:00 0
== END 2023-09-30 10:21 | disposition home or self-care (01) | DRG 378 ==
LOC: ANHED 21:11 → ANHIMU 22:20
PROVIDERS: Internal Medicine; Internal Medicine Gastroenterology; Student in an Organized Health Care Education/Training Program; Admitting Provider Internal Medicine; Emergency Provider Emergency Medicine; PCP Nurse Practitioner; Visit Provider General Practice
PROC: 0DJ08ZZ Inspection of Upper Intestinal Tract, Via Natural or Artificial Opening Endoscopic (ICD-10-PCS; CPT 43235; principal; 2023-09-28 16:00)
DX: K31.811 Angiodysplasia of stomach and duodenum with bleeding (principal); D62 Acute posthemorrhagic anemia; Z68.42 Body mass index [BMI] 45.0-49.9, adult; N17.9 Acute kidney failure, unspecified; I13.0 Hypertensive heart and chronic kidney disease with heart failure and stage 1 through stage 4 chronic kidney disease, or unspecified chronic kidney disease; I50.32 Chronic diastolic (congestive) heart failure; D12.2 Benign neoplasm of ascending colon; D12.0 Benign neoplasm of cecum; D12.5 Benign neoplasm of sigmoid colon; D12.3 Benign neoplasm of transverse colon; D72.828 Other elevated white blood cell count; D50.9 Iron deficiency anemia, unspecified; D75.839 Thrombocytosis, unspecified; E66.01 Morbid (severe) obesity due to excess calories; E78.2 Mixed hyperlipidemia; E11.22 Type 2 diabetes mellitus with diabetic chronic kidney disease; E11.51 Type 2 diabetes mellitus with diabetic peripheral angiopathy without gangrene; F41.9 Anxiety disorder, unspecified; F32.A Depression, unspecified; G47.33 Obstructive sleep apnea (adult) (pediatric); J44.9 Chronic obstructive pulmonary disease, unspecified; K29.70 Gastritis, unspecified, without bleeding; K55.20 Angiodysplasia of colon without hemorrhage; K64.8 Other hemorrhoids; N18.9 Chronic kidney disease, unspecified; Z79.82 Long term (current) use of aspirin; Z95.5 Presence of coronary angioplasty implant and graft; Z79.02 Long term (current) use of antithrombotics/antiplatelets; Z87.891 Personal history of nicotine dependence; Z79.84 Long term (current) use of oral hypoglycemic drugs
CPT/HCPCS: 36415; 36430; 71045; 80048; 80053; 81001; 82948; 83036; 84145; 85014; 85018; 85025; 85027; 86850; 86900; 86901; 86920; 88305; 99285; A9270; J2001; J2405; J2704; J7050; J7120; P9016

== ENCOUNTER 2023-10-02 13:52 | Outpatient (CLI) | payer MEDICARE, MEDICAID, SELFPAY ==
[2023-10-02 15:12] LABS: Basophils Absolute Auto 0.2 K/mm3 (0.0-0.1); Basophils Percent Auto 1.2 % (0.2-1.2); Eosinophils Absolute Auto 0.2 K/mm3 (0-0.3); Eosinophils Percent Auto 1.3 % (0-4.4); Hematocrit 29.9 % (37.0-47.0); Hemoglobin 8.2 g/dL (12.0-15.0); Immature Granulocyte Absolute 0.15 K/mm3 (0.00-0.031); Lymphocytes Absolute Auto 1.23 K/mm3 (0.9-3.2); Lymphocytes Percent Auto 8.3 % (18.3-44.2); Mean Corpuscular HGB Conc 27.4 g/dl (32-36); Mean Corpuscular Hemoglobin 22.5 pg (26-34); Mean Corpuscular Volume 81.9 fl (80-100); Mean Platelet Volume 8.6 fl (7.4-10.4); Monocytes Absolute Auto 1.2 K/mm3 (0.1-0.6); Monocytes Percent Auto 8.1 % (2.6-8.5); Neutrophils Absolute Auto 11.8 K/mm3 (1.3-6.7); Neutrophils Percent Auto 80.1 % (45.5-73.1); Nucleated Red Blood Cells Perc 0.3 % (0.0-0.2); Platelet Count Result 563 k/mm3 (150-375); Red Blood Count 3.65 M/mm3 (4.2-5.4); Red Cell Distribution Width 23.5 % (11.5-14.5); White Blood Count 14.8 K/mm3 (4.5-10.0)
[2023-10-02 15:37] LABS: Platelet Estimate Increased (Adequate)
[2023-10-02 15:38] LABS: Anisocytosis 3+; Hypochromasia 1+; Schistocytes None Seen
== END 2023-10-02 13:53 | disposition home or self-care (01) ==
PROVIDERS: PCP Nurse Practitioner; Referring Provider Internal Medicine Hematology & Oncology; Visit Provider General Practice
DX: D75.839 Thrombocytosis, unspecified (principal)
CPT/HCPCS: 36415; 85025

== ENCOUNTER 2023-10-03 15:29 | Outpatient (CLI) | payer MEDICARE, MEDICAID, SELFPAY ==
[2023-10-03 15:53] LABS: Basophils Absolute Auto 0.2 K/mm3 (0.0-0.1); Basophils Percent Auto 1.6 % (0.2-1.2); Eosinophils Absolute Auto 0.1 K/mm3 (0-0.3); Hematocrit 34.7 % (37.0-47.0); Hemoglobin 9.1 g/dL (12.0-15.0); Immature Granulocyte Absolute 0.11 K/mm3 (0.00-0.031); Immature Granulocyte Percent A 0.9 % (0-0.5); Lymphocytes Absolute Auto 1.31 K/mm3 (0.9-3.2); Lymphocytes Percent Auto 10.7 % (18.3-44.2); Mean Corpuscular HGB Conc 26.2 g/dl (32-36); Mean Corpuscular Hemoglobin 22.2 pg (26-34); Mean Corpuscular Volume 84.6 fl (80-100); Mean Platelet Volume 7.8 fl (7.4-10.4); Monocytes Absolute Auto 1.1 K/mm3 (0.1-0.6); Monocytes Percent Auto 8.8 % (2.6-8.5); Neutrophils Absolute Auto 9.4 K/mm3 (1.3-6.7); Nucleated Red Blood Cells Perc 0.7 % (0.0-0.2); Platelet Count Result 527 k/mm3 (150-375); Red Cell Distribution Width 23.6 % (11.5-14.5); White Blood Count 12.2 K/mm3 (4.5-10.0)
[2023-10-03 17:59] LABS: Iron 34 ug/dL (37-170)
[2023-10-03 18:03] LABS: Alanine Aminotransferase 21 U/L (6-35); Albumin Level 4.3 g/dL (3.5-5.1); Alkaline Phosphatase 150 U/L (38-126); Anion Gap 10 mmol/L (4-12); Aspartate Amino Transferase 33 U/L (14-36); Bilirubin,Total 0.9 mg/dL (0.2-1.3); Blood Urea Nitrogen 23 mg/dL (7-17); Carbon Dioxide 29 mmol/L (22-30); Chloride 100 mmol/L (98-107); Estimated Glomerular Filt Rate 49; Glucose 105 mg/dL (65-110); Potassium 4.6 mmol/L (3.4-5.0); Sodium 139 mmol/L (137-145)
[2023-10-03 18:09] LABS: Percent Iron Saturation 7 % (20-50)
[2023-10-03 18:37] LABS: Ferritin 7.64 ng/mL (11.1-264)
[2023-10-03 19:07] LABS: Folic Acid > 20.0 ng/mL (2.76->20); Vitamin B12 > 1000.0 pg/mL (239-931)
[2023-10-07 04:14] LABS: Methylmalonic Acid 206 nmol/L (69-390)
== END 2023-10-03 15:30 | disposition home or self-care (01) ==
PROVIDERS: PCP Nurse Practitioner; Visit Provider Internal Medicine Hematology & Oncology
DX: D64.9 Anemia, unspecified (principal)
CPT/HCPCS: 36415; 80053; 82607; 82728; 82746; 83540; 83550; 83921; 84238; 85025

== ENCOUNTER 2023-10-25 14:36 | Outpatient (CLI) | payer MEDICARE, MEDICAID, SELFPAY ==
[2023-10-25 15:15] LABS: Mean Corpuscular HGB Conc 28.6 g/dl (32-36); Mean Corpuscular Hemoglobin 23.9 pg (26-34); Mean Corpuscular Volume 83.5 fl (80-100); Mean Platelet Volume 8.2 fl (7.4-10.4); Platelet Count Result 592 k/mm3 (150-375); Red Blood Count 4.19 M/mm3 (4.2-5.4); Red Cell Distribution Width 23.7 % (11.5-14.5); White Blood Count 17.7 K/mm3 (4.5-10.0)
[2023-10-25 16:37] LABS: Iron 66 ug/dL (37-170)
[2023-10-25 16:45] LABS: Percent Iron Saturation 14 % (20-50)
== END 2023-10-25 14:37 | disposition home or self-care (01) ==
LOC: ANHLAB 14:39
PROVIDERS: PCP Nurse Practitioner; Visit Provider Internal Medicine Hematology & Oncology
DX: D64.9 Anemia, unspecified (principal)
CPT/HCPCS: 36415; 82728; 83540; 83550; 85027

== ENCOUNTER 2024-01-05 14:39 | Outpatient (CLI) | payer MEDICARE, MEDICAID, SELFPAY ==
[2024-01-05 15:42] LABS: Basophils Absolute Auto 0.3 K/mm3 (0.0-0.1); Basophils Percent Auto 1.8 % (0.2-1.2); Eosinophils Absolute Auto 0.2 K/mm3 (0-0.3); Eosinophils Percent Auto 1.3 % (0-4.4); Hematocrit 42.2 % (37.0-47.0); Hemoglobin 12.7 g/dL (12.0-15.0); Immature Granulocyte Absolute 0.13 K/mm3 (0.00-0.031); Immature Granulocyte Percent A 0.9 % (0-0.5); Lymphocytes Percent Auto 13.6 % (18.3-44.2); Mean Corpuscular HGB Conc 30.1 g/dl (32-36); Mean Corpuscular Hemoglobin 27.6 pg (26-34); Mean Corpuscular Volume 91.7 fl (80-100); Monocytes Percent Auto 6.9 % (2.6-8.5); Neutrophils Absolute Auto 11.1 K/mm3 (1.3-6.7); Neutrophils Percent Auto 75.5 % (45.5-73.1); Platelet Count Result 442 k/mm3 (150-375); Red Cell Distribution Width 19.9 % (11.5-14.5); White Blood Count 14.7 K/mm3 (4.5-10.0)
[2024-01-05 15:59] LABS: Albumin Level 4.5 g/dL (3.5-5.1); Anion Gap 11 mmol/L (4-12); Blood Urea Nitrogen 30 mg/dL (7-17); Carbon Dioxide 33 mmol/L (22-30); Chloride 94 mmol/L (98-107); Estimated Glomerular Filt Rate 45; Glucose 104 mg/dL (65-110); Phosphorus 4.3 mg/dL (2.5-4.5); Potassium 4.4 mmol/L (3.4-5.0); Sodium 138 mmol/L (137-145)
[2024-01-05 16:01] LABS: Creatinine Urine 47.5 mg/dL; Total Protein Urine Random 10 mg/dL; Ur Ttl Prot Creatinine Ratio 0.21 mg/mg (0-0.20)
[2024-01-05 16:02] LABS: Iron 179 ug/dL (37-170)
[2024-01-05 16:13] LABS: Percent Iron Saturation 43 % (20-50)
[2024-01-05 16:34] LABS: Complement C3 158 mg/dL (88-165)
[2024-01-09 17:29] LABS: Creatinine, Random Urine 47 mg/dL (20-275); Total Prot/Creat ratio mg/mg 0.277 (0.024-0.184); Total Protein/Creatinine Ratio 277 mg/g creat (24-184)
[2024-01-11 13:54] LABS: Protein, Total 7.6 g/dL (6.1-8.1)
[2024-01-12 10:12] LABS: ANCA Screen NEGATIVE (NEGATIVE)
[2024-01-12 15:29] LABS: Abnormal Protein Band 1 0.1 g/dL (NONE DETECTED); Albumin 4.2 g/dL (3.8-4.8); Alpha 1 Globulin 0.4 g/dL (0.2-0.3); Alpha 2 Globulin 1.2 g/dL (0.5-0.9); Beta 1 Globulin 0.7 g/dL (0.4-0.6); Gamma Globulin 0.9 g/dL (0.8-1.7)
[2024-01-15 11:18] LABS: Anti Glomerular Basement Memb <1.0 AI
== END 2024-01-05 14:40 | disposition home or self-care (01) ==
PROVIDERS: PCP Nurse Practitioner; Referring Provider Internal Medicine Hematology & Oncology; Visit Provider Internal Medicine Nephrology
DX: D64.9 Anemia, unspecified (principal); I12.9 Hypertensive chronic kidney disease with stage 1 through stage 4 chronic kidney disease, or unspecified chronic kidney disease; N18.31 Chronic kidney disease, stage 3a
CPT/HCPCS: 36415; 80069; 82570; 82728; 83520; 83540; 83550; 84155; 84156; 84165; 84166; 85025; 86036; 86038; 86039; 86160; 86225

== ENCOUNTER 2024-01-10 10:57 | Outpatient (CLI) | payer MEDICARE, MEDICAID, SELFPAY ==
--- NOTE | ~2024-01-10 | US_ITS ---
EXAMINATION: US renal BI DATE: 01/10/2024 11:44 INDICATION: Stage IIIa chronic kidney disease TECHNIQUE: Multiple ultrasound grayscale images of the kidneys were obtained. COMPARISON: None. FINDINGS: The right kidney measures 10.8 x 4.6 x 5.0 cm. The left kidney measures 10.3 x 4.5 x 4.3 cm. The kidn eys demonstrate normal echogenicity. 1.3 cm anechoic exophytic left renal cyst. There is no hydroneph rosis in either kidney. No stones identified. The bladder is normal. IMPRESSION: 1. 1.3 cm left renal cyst. Otherwise normal kidneys with no hydronephrosis. Reviewed, dictated and finalized at location A.
== END 2024-01-10 10:58 | disposition home or self-care (01) ==
PROVIDERS: PCP Nurse Practitioner; Referring Provider Internal Medicine Cardiovascular Disease; Visit Provider Internal Medicine Nephrology
DX: I12.9 Hypertensive chronic kidney disease with stage 1 through stage 4 chronic kidney disease, or unspecified chronic kidney disease (principal); N18.31 Chronic kidney disease, stage 3a; N28.1 Cyst of kidney, acquired
CPT/HCPCS: 76775

== ENCOUNTER 2024-05-30 15:50 | Outpatient (CLI) | payer MEDICARE, MEDICAID, SELFPAY ==
--- OUTSIDE RECORDS SUMMARY | 2024-05-30 15:55 | XMS_ITS | Data Portability ---
Author Organization [facility] [employer], Main Office Address [address] [place] [address] Care Team Providers Care Ingredient Mixer Name Role Phone YUDY HAHN Primary Care Provider Assessment No assessment recorded. Plan of Treatment Reminders Order Date Submit Date Provider Last Modified By Organization Details Last Modified Time Details Appointments None recorded. Lab None recorded. Referral None recorded. Procedures None recorded. Surgeries None recorded. Imaging CT, chest, w/o contrast - DUE 11/2022 023 [facility], [address] [place], [address], 3 09:34:25 CT, chest, w/o contrast - DUE 11/2022 023 [email or web address] 25 [facility], [address] [place] [address] Route [facility], [place], [address], 3 09:48:32 Medication Orders None recorded. Patient TargetsNo targets recorded. Patient InstructionsNo instructions recorded. Reason for Referral None Reported. Results Created Date Observation Date Name Description Value Unit Range Abnormal Flag Note LastModifiedBy Organization Detail LastModifiedTime 11/20/19 22 11/15/2021 compl ete PFT w/ post [facility] hodil ator robbie metry * No observ ation record ed. [id number] [facility] (Cardiology & Emg) [address] [place] [address] [address], [place], [address], 06/15/2022 18:41:32 11/27/19 22 11/26/2021 CT, chest , w/ contr ast No observ ation record ed. [id number] [facility] [address], [place], [address], 06/15/2022 18:41:32 12/03/19 22 11/26/2021 CT, chest , w/ contr ast No observ ation record ed. [id number] [facility] [address], [place], [address], 06/15/2022 18:41:32 12/13/19 23 12/12/2022 cardi ac stres s test No observ ation record ed. [email or web address] [facility] [address], [place], [address], 12/23/2022 15:12:03 02/07/20 23 02/01/2023 CT, chest , w/o contr ast No observ ation record ed. [email or web address] [facility] [address] [place], [address], 02/15/2023 21:42:47 Result Notes None recorded. Problems Name Problem SNOMED Code Status Onset Date Resolution Date Notes Provider Name and Address Organization Details Recorded Time Extreme obesity with alveolar hypoventil ation 457338145 Active 2020 Not Available [facility] 3 18:39:03 Asthma 883091826 Active 2020 Not Available [facility] 3 18:39:03 Morbid obesity 574488286 Active 2021 Not Available [facility] 3 18:39:04 Feeling of lump in throat 981064411 Active 2021 Not Available [facility] 3 18:39:04 Chest pain 87859002 Active 2021 Not Available [facility] 3 18:39:04 Decreased diffusion capacity of lung 19290779 Active 2020 Not Available [facility] 3 18:39:04 Multiple nodules of lung 055134014 Active 2020 Not Available [facility] 3 18:39:04 Cough 73009189 Active 2020 Not Available [facility] 3 18:39:04 Dyspnea on exertion 48611279 Active 2020 Not Available [facility] 3 18:39:04 Obstructiv e sleep apnea syndrome 21044961 Active 2020 Not Available [facility] 3 18:39:04 Disability evaluation procedure Active 2021 Not Available [facility] 3 18:39:05 Secondary pulmonary hypertensi on 33219334 Active 2021 Not Available [facility] 3 18:39:05 Dependence on supplement al oxygen 577554746355 Active 2020 Not [address] [facility] 3 18:39:05 Physical deconditio khang 7566656473836 2 Active 2022 Amanda Valentine, HOME HEALTH CLINICAL SUPERVISOR-BC [address] [facility], [facility] [address], [place], [address] , [facility] [employer] [facility] 3 10:00:06 Problem Notes None recorded. Procedures Surgical History Date Name Laterality Status Provider Name and Address Organization Details Recorded Time other completed Not Available [facility] 04/2022 18:37:47 Imaging Results Imaging Date Name Status LastModified by Organization Details LastModified Time 11/15/2021 complete PFT w/ post bronchodilator spirometry* completed [id number] [facility] (Cardiology & Emg) [address] [place] [address] [address], [place], [address], 06/15/2022 18:41:32 11/26/2021 CT, chest, w/ contrast completed [id number] [facility] [address] [place] [address] [address], [place], [address], 06/15/2022 18:41:32 11/26/2021 CT, chest, w/ contrast completed [id number] [address] [place] [address] Imaging [facility] [address], [place], [address], 06/15/2022 18:41:32 12/12/2022 cardiac stress test completed [facility] [facility] [address], [place], [address], 12/23/2022 15:12:03 02/01/2023 CT, chest, w/o contrast completed [address] Central Scheduling [address] [place], [address], 02/15/2023 21:42:47 Procedure Notes None recorded. Medical Equipment None Reported. Allergies Allergen ID Allergen Name Allergen Category Reaction Reaction Severity Criticality Documentation Date Start Date Code Code System Note Provider Name and Address Organization Details Recorded Time 68721 niacin medicatio n rash Not available Not available 06/15/2022 7393 RxNorm Not Available [facility] 18:41:28 41163 codeine medicatio n rash Not available Not available 06/15/2022 2670 RxNorm Not Available [facility] 18:41:29 Medications Name Sig Start Date Stop Date Status Note LastModified by Organization Details LastModified Time fluoxetine 40 mg capsule TAKE 1 CAPSULE BY MOUTH ONCE DAILY active Not Available Not Available No t Available metolazone 2.5 mg tablet TAKE 1 TABLET BY MOUTH ONCE DAILY 11/22 completed Not Available Not Available Not Available atorvastati n 40 mg tablet 11/22 completed Not Available Not Available Not Available atorvastati n 80 mg tablet TAKE 1 TABLET BY MOUTH ONCE DAILY active Not Available Not Available No t Available doxycycline hyclate 100 mg capsule Take 1 capsule twice a day by oral route as directed for 7 days. active Not Available Not Available No t Available atorvastati n 20 mg tablet 11/22 completed Not Available Not Available Not Available torsemide 20 mg tablet TAKE 4 TABLETS BY MOUTH ONCE DAILY active Not Available Not Available No t Available nabumetone 750 mg tablet TAKE 1 TABLET BY MOUTH TWICE DAILY NEEDED WITH FOOD FOR PAIN active Not Available Not Available No t Available clindamycin HCl 300 mg capsule 07/12 completed Not Available Not Available Not Available azithromyci n 250 mg tablet TAKE 2 TABLETS BY MOUTH ON DAY 1, AND THEN TAKE 1 TABLET BY MOUTH ONCE A DAY ON DAY 2 THROUGH DAY 5 05/24 completed Not Available Not Available Not Available benzonatate 200 mg capsule TAKE 1 CAPSULE BY MOUTH THREE TIMES DAILY NEEDED FOR COUGH 05/24 completed Not Available Not Available Not Available Nystop 100,000 unit/gram topical powder APPLY POWDER TOPICALLY THREE TIMES DAILY NEEDED FOR FUNGAL INFECTION active Not Available Not Available No t Available flurbiprofe n 0.03 % eye drops INSTILL 1 DROP INTO AFFECTED EYE THREE TIMES DAILY STARTING AFTER SURGERY active Not Available Not Available No t Available diltiazem CD 240 mg capsule,ext ended release 24 hr TAKE 1 CAPSULE BY MOUTH ONCE DAILY 03/07 completed Not Available Not Available Not Available famotidine 40 mg tablet TAKE 1 TABLET BY MOUTH AT BEDTIME active Not Available Not Available No t Available prednisone 20 mg tablet TAKE 2 TABLETS BY MOUTH ONCE DAILY 05/24 completed Not Available Not Available Not Available clindamycin HCl 150 mg capsule 07/12 completed Not Available Not Available Not Available hydralazine 25 mg tablet TAKE 1 TABLET BY MOUTH TWICE DAILY active Not Available Not Available No t Available diltiazem CD 360 mg capsule,ext ended release 24 hr active Not Available Not Available Not Available clopidogrel 75 mg tablet TAKE 1 TABLET BY MOUTH ONCE DAILY active Not Available Not Available No t Available amlodipine 5 mg tablet TAKE 1 TABLET BY MOUTH ONCE DAILY active Not Available Not Available No t Available sulfamethox azole 800 mg-trimetho prim 160 mg tablet TAKE 1 TABLET BY MOUTH EVERY 12 HOURS active Not Available Not Available No t Available losartan 100 mg-hydrochl orothiazide 25 mg tablet TAKE 1 TABLET BY MOUTH ONCE DAILY 11/22 completed Not Available Not Available Not Available alprazolam 0.25 mg tablet TAKE 1 TABLET BY MOUTH THREE TIMES DAILY NEEDED FOR ANXIETY active Not Available Not Available No t Available prednisolon e acetate 1 % eye drops,suspe nsion INSTILL 1 DROP INTO EACH EYE THREE TIMES DAILY AFTER SURGERY 11/22 completed Not Available Not Available Not Available meclizine 25 mg tablet TAKE 1 TABLET BY MOUTH THREE TIMES DAILY NEEDED FOR DIZZINESS active Not Available Not Available No t Available nystatin 100,000 unit/gram topical cream APPLY 1 CREAM TOPICALLY TO AFFECTED AREA THREE TIMES DAILY UNTIL RASH IS CLEAR active Not Available Not Available No t Available polymyxin B sulfate 10,000 unit-trimet hoprim 1 mg/mL eye drops INSTILL 1 DROP INTO AFFECTED EYE(S) 4 TIMES DAILY FOR 8 DAYS BEGINNING DAY BEFORE SURGERY 11/22 completed Not Available Not Available Not Available fluoxetine 10 mg capsule 11/22 completed Not Available Not Available Not Available betamethaso ne dipropionat e 0.05 % topical cream APPLY CREAM TOPICALLY TWICE DAILY NEEDED FOR RASH active Not Available Not Available No t Available diclofenac sodium 75 mg tablet,harish yed release 11/22 completed Not Available Not Available Not Available diltiazem CD 120 mg capsule,ext ended release 24 hr TAKE 1 CAPSULE BY MOUTH ONCE DAILY 03/07 completed Not Available Not Available Not Available mupirocin 2 % topical ointment 07/12 completed Not Available Not Available Not Available levofloxaci n 500 mg tablet 07/12 completed Not Available Not Available Not Available zolpidem 10 mg tablet 11/22 completed Not Available Not Available Not Available albuterol sulfate HFA 90 mcg/actuati on aerosol inhaler INHALE 2 PUFFS BY MOUTH EVERY 4 TO 6 HOURS NEEDED FOR DYSPNEA/C OUGH active Not Available Not Available No t Available SSD 1 % topical cream APPLY CREAM EXTERNALL Y TO AFFECTED AREA TWICE DAILY APPLY 1.5MM THICK active Not Available Not Available No t Available spironolact one 50 mg tablet TAKE 1 TABLET BY MOUTH ONCE DAILY active Not Available Not Available No t Available Vitamin B12 100 mcg tablet Take 1 tablet every day by oral route. 2016 active Not Available Not Available Not Avai lable ezetimibe 10 mg tablet TAKE 1 TABLET BY MOUTH ONCE DAILY active Not Available Not Available No t Available Fish Oil 360 mg-1,200 mg capsule Take 1 capsule every day by oral route. 11/17 completed Not Available Not Available Not Available Anoro Ellipta 62.5 mcg-25 mcg/actuati on powder for inhalation INHALE 1 PUFF BY MOUTH ONCE DAILY DIRECTED 12/07 completed Not Available Not Available Not Available Jardiance 10 mg tablet TAKE 1 TABLET BY MOUTH ONCE DAILY 03/07 completed Not Available Not Available Not Available Jardiance 25 mg tablet TAKE 1 TABLET BY MOUTH ONCE DAILY active Not Available Not Available No t Available Ozempic 0.25 mg or 0.5 mg (2 mg/1.5 mL) subcutaneou s pen injector INJECT 0.25 MG SUBCUTANE OUSLY ONCE A WEEK FOR 4 WEEKS AND THEN INCREASE TO 0.5 MG WEEKLY active Not Available Not Available No t Available albuterol sulf 90 mcg/actuati on breath activated powder inhaler,sen sor active Not Available Not Available Not Available Ozempic 1 mg/dose (4 mg/3 mL) subcutaneou s pen injector INJECT 1 MG ONCE A WEEK 05/24 completed Not Available Not Available Not Available Ozempic 0.25 mg or 0.5 mg (2 mg/3 mL) subcutaneou s pen injector INJECT 0.25 ONCE A WEEK FOR FOUR WEEKS, THEN INCREASE TO 0.5 MG WEEKLY, active Not Available Not Available No t Available Vitals Date Recorded Body mass index (BMI) Body mass index (BMI) Body height Body height Oxygen saturation Oxygen saturation in Arterial blood by Pulse oximetry Oxygen saturation Oxygen saturation in Arterial blood by Pulse oximetry Heart rate Heart rate Body temperature Body temperature Body weight Body weight Systolic blood pressure Diastolic blood pressure Systolic blood pressure Diastolic blood pressure Provider Name and Address Organization Details Last Updated DateTime 3 55.1 kg/m2 55.9 kg/m2 154.94 cm 154.94 cm 98 % 98 % 91 % 91 % 76 /min 76 /min 97.2 [degF] 96.4 [degF] 594493. 82 g 189062. 34 g 138 mm[Hg] 72 mm[Hg] 120 mm[Hg] 74 mm[Hg] Not Available [facility] 3 18:38:43 Date Recorded Body height Body mass index (BMI) Body weight Heart rate Oxygen saturation Oxygen saturation in Arterial blood by Pulse oximetry Inhaled oxygen flow rate Systolic blood pressure Diastolic blood pressure Provider Name and Address Organization Details Last Updated DateTime 3 154.94 cm 53.8 kg/m2 558386. 83 g 77 /min 94 % 94 % 2 L/min 158 mm[Hg] 54 mm[Hg] Tracey Cardenas [facility] [employer] 3 14:40:14 Date Recorded Body height Body weight Body temperature Heart rate Oxygen saturation Oxygen saturation in Arterial blood by Pulse oximetry Inhaled oxygen flow rate Systolic blood pressure Diastolic blood pressure Provider Name and Address Organization Details Last Updated DateTime 3 154.94 cm 321071. 86 g 97.2 [degF] 101 /min 93 % 93 % 2 L/min 130 mm[Hg] 70 mm[Hg] Jessica Gutierrez RN [facility] [employer] [facility] 3 14:30:56 Date Recorded Body height Body mass index (BMI) Body weight Heart rate Oxygen saturation Oxygen saturation in Arterial blood by Pulse oximetry Inhaled oxygen flow rate Systolic blood pressure Diastolic blood pressure Provider Name and Address Organization Details Last Updated DateTime 3 154.94 cm 51.4 kg/m2 022097. 12 g 76 /min 92 % 92 % 2 L/min 132 mm[Hg] 68 mm[Hg] Dionne Rao MA [place] [facility] [employer] [facility] 3 10:25:02 Social History Question Answer Notes LastModified by Organizat ion Details LastModified Time Tobacco Smoking Status Former Smoker Not Available [facility] 06/15/2022 18:37:41 Do You Have An Advance Directive? No MIGRATION.65281 [id number] Information not available 06/15/2022 What Is Your Level Of Alcohol Consumption? Occasional MIGRATION.56653 87397 Information not available 06/15/2022 Are You Blind Or Do You Have Difficulty Seeing? No MIGRATION.22827 62901 Information not available 06/15/2022 What Is Your Level Of Caffeine Consumption? Heavy MIGRATION.94070 77684 Information not available 06/15/2022 In The 14 Days Before Symptom Onset, Have You Had Close Contact With A Laboratory-confir med COVID-19 While That Case Was Ill? No MIGRATION.99286 71085 Information not available 06/15/2022 In The 14 Days Before Symptom Onset, Have You Had Close Contact With A Person Who Is Under Investigation For COVID-19 While That Person Was Ill? No MIGRATION.46451 82350 Information not available 06/15/2022 Are You Deaf Or Do You Have Serious Difficulty Hearing? No MIGRATION.19663 35629 Information not available 06/15/2022 What Type Of Diet Are You Following? REGULAR MIGRATION.48121 10429 Information not available 06/15/2022 What Is The Highest Grade Or Level Of School You Have Completed Or The Highest Degree You Have Received? PO46125-1 Some College MIGRATION.09080 12436 Information not available 06/15/2022 Do You Have An Electrostatic Air Filter? No MIGRATION.94590 50336 Information not available 06/15/2022 When Did You Quit Smoking? 1-5yearssince lastcigarette August 14, 2020 MIGRATION.96637 57411 Information not available 06/15/2022 Do You Have A Humidifier? No MIGRATION.29780 83067 Information not available 06/15/2022 Do You Have A Medical Power Of Automotive Services Manager? No MIGRATION.73310 11516 Information not available 06/15/2022 Do You Have Moisture Problems In Your Home? No MIGRATION.55423 74215 Information not available 06/15/2022 What Was The Date Of Your Most Recent Tobacco Screening? 12/29/2020 MIGRATION.38362 56023 Information not available 06/15/2022 Have You Ever Been Counseled For Unhealthy Alcohol Use? No MIGRATION.07772 13180 Information not available 06/15/2022 Do You Have Any Pets? No MIGRATION.00394 51213 Information not available 06/15/2022 What Is Your Relationship Status? MIGRATION.35659 75395 Information not available 06/15/2022 Do You Use Your Seat Belt Or Car Seat Routinely? Yes MIGRATION.06342 00080 Information not available 06/15/2022 Do You Have Smoke And Carbon Monoxide Detectors In Your Home? Yes MIGRATION.47438 22084 Information not available 06/15/2022 At What Age Did You Start Smoking Tobacco? 25 MIGRATION.41505 27041 Information not available 06/15/2022 Are You Passively Exposed To Smoke? No MIGRATION.30730 24520 Information not available 06/15/2022 Do You Use Any Illicit Or Recreational Drugs? No MIGRATION.19231 96114 Information not available 06/15/2022 Do You Use Sunscreen Routinely? No MIGRATION.96815 38306 Information not available 06/15/2022 Has Tobacco Cessation Counseling Been Provided? No MIGRATION.19343 48909 Information not available 06/15/2022 How Many Years Have You Smoked Tobacco? 40 MIGRATION.70984 20171 Information not available 06/15/2022 Have You Recently Traveled Abroad? No MIGRATION.76436 02944 Information not available 06/15/2022 Do You Have Any Dietary Restrictions? No MIGRATION.62653 71505 Information not available 06/15/2022 Do You Or Have You Ever Used Any Other Forms Of Tobacco Or Nicotine? No MIGRATION.26892 00765 Information not available 06/15/2022 Sex: Unknown Functional Status Question Answer Note LastModified by Organizat ion Details LastModified Time Do you have difficulty walking or climbing stairs? No MIGRATION.0594482 026 Information not available 06/15/2022 Do you have transportation difficulties? No MIGRATION.7689685 026 Information not available 06/15/2022 Are you able to walk? YESWOREST MIGRATION.8654398 026 Information not available 06/15/2022 Do you have difficulty doing errands alone? No MIGRATION.0184310 026 Information not available 06/15/2022 Are you able to care for yourself? Yes MIGRATION.2975405 026 Information not available 06/15/2022 Do you have difficulty dressing or bathing? No MIGRATION.0064541 026 Information not available 06/15/2022 What is your exercise level? None MIGRATION.3621372 026 Information not available 06/15/2022 Mental Status Question Answer Note LastModified by Organizat ion Details LastModified Time Do you have difficulty concentrating, remembering or making decisions? No MIGRATION.[id number] 6 Information not available 06/15/2022 Family History Relationship Description Onset Age of this Age Resolved Age Notes LastModified by Organization Details LastModified Time Father Disorder of lung MIGRATION.616 [id number] Not available 06/15/2022 18:37:48 Mother Disorder of lung MIGRATION.228 [id number] Not available 06/15/2022 18:37:48 Sister Disorder of lung MIGRATION.923 [id number] Not available 06/15/2022 18:37:48 Medical History No medical history recorded. Gynecological HistoryNo gynecological history recorded. Obstetrics History GPAL:G 0 P 0 0 0 0 Immunizations Vaccine Type Date Status Note Provider Nam e and Address Organization Details Recorded Time influenza, unspecified formulation 0 completed Not Available [facility] 06/15/2022 18:41:26 Past Encounters Encounter ID Performer Location Encounter Start Date Encounter Closed Date Diagnosis/Indication Diagnosis SNOMED-CT Code Diagnosis ICD10 Code Diagnosis Note [id number] [facility] [place] [address] [place] [address] 11/17/2020 00:00:00 11/17/2020 14:10:51 [id number] [facility] [place] [address] [place] [address] 12/29/2020 00:00:00 12/29/2020 13:16:22 [id number] [facility] [place] [address] [place] [address] 03/01/2021 00:00:00 03/01/2021 14:20:12 [id number] [facility] [place] [address] [place] [address] 04/28/2021 00:00:00 04/28/2021 13:41:04 [id number] [facility] [place] [address] [place] [address] 05/27/2021 00:00:00 05/27/2021 20:33:39 [id number] [facility] [place] [address] [place] [address] 11/22/2021 00:00:00 11/22/2021 16:54:00 [id number] [facility] [place] [address] [place] [address] 12/07/2021 00:00:00 12/07/2021 15:54:23 [id number] [facility] [place] [address] [place] [address] 05/24/2022 00:00:00 05/24/2022 16:36:18 [id number] Amanda Valentine, HOME HEALTH CLINICAL SUPERVISOR- [facility] [place] [address] [place] [address] 09/14/2022 14:19:08 09/14/2022 14:59:42 Secondary pulmonary hypertension 14061147 I27.21 Cardiac catheteriz ation through [facility] with moderate PHSevere diastolic dysfunctio nUncorrect ed JHONY/OHS and hypoxia likely contribute d - these are currently treated.Ca rdiology is in agreement that sildenafil will not likely give any benefit Dyspnea on exertion 6084 5006 R06.09 IGE normalAlph a 1 normal MMLevels 141.HP normalQuan tiferon GOLD negativeCB C normal.Tim ght loss, increase activity.H er dyspnea is out of proportion to her lung volumesSom e very mild emphysema on CT with normal lung volumes - she has no benefit from inhaled therapyMet hacholine challenge negative Multiple n odules of lung 328951297 R91.[address] chest 07/13/20, repeat 11/26/21 stable with all nodules to BUL less than 2mmHistopl asma, blastomyce s negative.L egionella, cocciciode s, KINJAL and SEYMOUR normalRepe at CT in one year, due 11/2022 Extreme ob esity with alveolar hypoventilation 272491232 E66.2 Continue BIPAP.Down load on with 100% use greater than 4 hoursAHI corrected at 1.2She has good use and clinical benefit.Co ntinue current settings.O SA is well correctedE ncouraged 100% compliance with all sleepFollo w with PCM for labsAdvise d good sleep habits and patterns:- Set a goal for at least 7 to 8 hours of sleep time per day.-Use the bed mainly for sleep and to go to bed only when tired. If unable to fall asleep after 30 minutes, patient should get out of bed but should not engage in any activity that requires sustained mental alertness. -Maintain a regular bedtime and wake-up time even on weekends-A void excessive naps during the daytime. If a nap is necessary, limit it to no more than 30 minutes.-M inimize environmen vaughn noise, bright lights, and extremes in bedroom temperatur e.-Avoid alcohol, caffeinate d beverages, and nicotine products for at least 6 hours prior to bedtime.-A void strenuous exercise and large meals for at least 4 hours prior to bedtime. [id number] Amanda Valentine, HOME HEALTH CLINICAL SUPERVISOR-[facility] [place] [address] [place] [address] 01/13/2023 14:24:33 01/13/2023 15:04:28 Secondary pulmonary hypertension 38902529 I27.21 Cardiac catheteriz ation through [facility] with moderate PHSevere diastolic dysfunctio nUncorrect ed JHONY/OHS and hypoxia likely contribute d - these are currently treated.Ca rdiology is in agreement that sildenafil will not likely give any benefitNee d recent echo/cath Dyspnea on exertion 6084 5006 R06.09 IGE normalAlph a 1 normal MMLevels 141.HP normalQuan tiferon GOLD negativeCB C normal.Tim ght loss, increase activity.H er dyspnea is out of proportion to her lung volumesSom e very mild emphysema on CT with normal lung volumes on PFT 11/2021- she has no benefit from inhaled therapyRat io 84%FEV1 80%TLC 96%DLCO adjusted 97%Plans to repeat this fallMethac holine challenge 11/2020 negative Multiple n odules of lung 630047001 R91.[address] chest 07/13/20, repeat 11/26/21 stable with all nodules to BUL less than 2mmHistopl asma, blastomyce s negative.L egionella, cocciciode s, KINJAL and SEYMOUR normalRepe at CT in one year, due 11/2022 - ordered today Extreme ob esity with alveolar hypoventilation [id number] E66.2 Continue BIPAP.Down load on with 100% use greater than 4 hoursAHI corrected at 0.8She has good use and clinical benefit.Co ntinue current settings.O SA is well correctedE ncouraged 100% compliance with all sleepFollo w with PCM for labsAdvise d good sleep habits and patterns:- Set a goal for at least 7 to 8 hours of sleep time per day.-Use the bed mainly for sleep and to go to bed only when tired. If unable to fall asleep after 30 minutes, patient should get out of bed but should not engage in any activity that requires sustained mental alertness. -Maintain a regular bedtime and wake-up time even on weekends-A void excessive naps during the daytime. If a nap is necessary, limit it to no more than 30 minutes.-M inimize environmen vaughn noise, bright lights, and extremes in bedroom temperatur e.-Avoid alcohol, caffeinate d beverages, and nicotine products for at least 6 hours prior to bedtime.-A void strenuous exercise and large meals for at least 4 hours prior to bedtime.Do wnload in one year, PRN for concerns Physical deconditioning [id number] 9102 R68.89 Contributo r to dyspnea Dependence on supplemental oxygen [id number] 07 Z99.81 2 liters with activitySh e has good use and clinical benefitLas t six minute walk testing in 2020Needs repeat, plans for this fall with PFT [id number] Amanda Serge, HOME HEALTH CLINICAL SUPERVISOR-BC [facility] Pulmonolo [facility] [place] [address] [place] [address] 03/07/2023 10:15:29 03/07/2023 12:16:27 Secondary pulmonary hypertension [id number] I27.21 Cardiac catheteriz ation through [facility] with moderate PHSevere diastolic dysfunctio nUncorrect ed JHONY/OHS and hypoxia likely contribute d - these are currently treated.Ca rdiology is in agreement that sildenafil will not likely give any benefit Dyspnea on exertion 6084 5006 R06.09 IGE normalAlph a 1 normal MMLevels 141.HP normalQuan tiferon GOLD negativeCB C normal.Tim ght loss, increase activity.H er dyspnea is out of proportion to her lung volumesSom e very mild emphysema on CT with normal lung volumes on PFT 11/2021- she has no benefit from inhaled therapyRat io 84%FEV1 80%TLC 96%DLCO adjusted 97%Recomme nd repeat PFT and walk testingMet hacholine challenge 11/2020 negativeAd vised vaccines this fall Dependence on supplemental oxygen [id number] 07 Z99.81 2 liters with activitySh e has good use and clinical benefitLas t six minute walk testing in 2020I recommend repeat testing Multiple n odules of lung [id number] R91.[address] chest 07/13/20, repeat 11/26/21 stable with all nodules to BUL less than 2mmHistopl asma, blastomyce s negative.L egionella, cocciciode s, KINJAL and SEYMOUR normalRepe at CT 01/2023 with no nodule, mass or adenopathy . Calcified granuloma noted Extreme ob esity with alveolar hypoventilation [id number] E66.2 Continue BIPAP.Last download on with 100% use greater than 4 hoursAHI corrected at 0.8She has good use and clinical benefit.Co ntinue current settings.O SA is well correctedE ncouraged 100% compliance with all sleepFollo w with PCM for labsAdvise d good sleep habits and patterns:- Set a goal for at least 7 to 8 hours of sleep time per day.-Use the bed mainly for sleep and to go to bed only when tired. If unable to fall asleep after 30 minutes, patient should get out of bed but should not engage in any activity that requires sustained mental alertness. -Maintain a regular bedtime and wake-up time even on weekends-A void excessive naps during the daytime. If a nap is necessary, limit it to no more than 30 minutes.-M inimize environmen vaughn noise, bright lights, and extremes in bedroom temperatur e.-Avoid alcohol, caffeinate d beverages, and nicotine products for at least 6 hours prior to bedtime.-A void strenuous exercise and large meals for at least 4 hours prior to bedtime.Do wnload in one year, PRN for concerns Physical deconditioning [id number] 9102 R68.89 Contributo r to dyspnea Health Concerns Section Related Observation LastModified by Organization Detai ls LastModified Time None Recorded Concern Status LastModified by Organization Details LastModified Time None Recorded Advance Directives Directive N: Payers Encounter Date Sequence Insurance Name Policy Number Policy Wong Covered Member ID Wong Member ID Guarantor Name 09/14/2022 1 [facility] (MEDICARE REPLACEMENT/A DVANTAGE - PPO) [id number] Nadya Kat Ray [id number] Nadya Kat Ray 09/14/2022 2 [place] [facility] OF PUBLIC AID Nadya Kat Ray [id number] Nadya Kat Ray 01/13/2023 1 [facility] (MEDICARE REPLACEMENT/A DVANTAGE - PPO) [id number] Nadya K Ray [id number] Nadya K Ray 01/13/2023 2 [place] [facility] OF PUBLIC AID Nadya Kat Ray [id number] Nadya Kat Ray 03/07/2023 1 [facility] (MEDICARE REPLACEMENT/A DVANTAGE - PPO) [id number] Nadya K Ray [id number] Nadya K Ray 03/07/2023 2 [place] [facility] OF PUBLIC AID Nadya Kat Ray [id number] Nadya Zarate Notes Date Note Type Note Provider Name and Address Organization Details Recorded Time 3 text/html Ms Zarate presents today to follow up on dyspnea, mild emphysema, OHS, PH.She is having a left carotid endartectomy September 30 for 95% stenosisShlex is in cardiopulmonary rehab and can do 17 minutes straight on the recumbent bike but still can not walk on the treadmillReports leg painWill have US by vascular after carotid procedure, he believes she may need stentsOne URI in March with steroids and significant improvementSaw cardiology - has had no further changes at this timeCompliant with oxygen.She has good use and benefit.Denies irving GERD symptoms.No change in dyspnea without inhaled therapy Amanda Valentine, [facility] [address], [place], [address], [employer] 09/14/2022 16:40:44 3 text/html Ms Zarate presents today to follow up on dyspnea, mild emphysema, OHS, PH, recent carotid surgeryAlbina did not have significant improvement in dyspnea after left carotid endartectomy in SeptemberAlbina was in cardiopulmonary rehab and could do 17 minutes straight on the recumbent bike prior to thisOne URI in March 2022 with steroids and significant improvementCompliant with oxygen.She has good use and benefit.Denies irving GERD symptoms.No change in dyspnea without inhaled therapyNo cough or wheezing.Does not wake at night R/T respiratory symptomsNightly compliance with PAP, she has restful sleep Amanda Valentine [facility] [address], [place], [address], [employer] 01/16/2023 10:04:37 3 text/html Ms Zarate presents today to follow up on dyspnea, mild emphysema, OHS, PH, recent carotid surgery, oxygen dependenceAlbina did not have significant improvement in dyspnea after left carotid endartectomy in September, in fact she tells me that she continues to have some dizziness. She saw cardiology yesterdayShe was in cardiopulmonary rehab and could do 17 minutes straight on the recumbent bike prior to thisIn fact, she tells me that she was much better while doing an exercise programOne URI in March 2022 with steroids and significant improvement. No respiratory inections this year.Compliant with oxygen.She has good use and benefit.Denies irving GERD symptoms.No change in dyspnea with or without inhaled therapyNo cough or wheezing.Does not wake at night R/T respiratory symptomsNightly compliance with PAP, she has restful sleep Amanda Valentine, [facility] [address], [facility] [address], [place], [address], [place] [facility] 03/07/2023 15:13:02 OBGyn Episode No OBEpisode recorded.
--- OUTSIDE RECORDS SUMMARY | 2024-05-30 15:55 | XMS_ITS | Clinical Summary ---
[facility] Address [address] [place] [address] Care Team Providers Care Custom Seamstress Name Role Phone Adair Do MD Primary Care Provider [phone] Allergies Active Allergy Reactions Criticality Noted Date Comments Cefaclor Hives High 10/03/2023 Cephalexin Shortness of Breath/Wheezing High 024 Codeine Hcl Nausea and Vomiting Low 09/27/2022 Doxycycline Hives High 10/03/2023 Inositol Hives High 10/03/2023 Niacin Anaphylaxis High 10/03/2023 Tetracyclines Anaphylaxis,Other (S ee Comments),Rash High 11/03/2020 Reaction: Medications albuterol sulfate HFA 90 mcg/actuation aerosol inhaler Take 2 Puffs by inhalation. 05/10/2022 Active atorvastatin (LIPITOR) 80 mg tablet Take 80 mg by mouth daily at bedtime. 05/20/2022 Active diltiaZEM (CARDIZEM CD) 360 mg Controlled Delivery 24 hour capsule Take 360 mg by mouth daily. Active ezetimibe (ZETIA) 10 mg tablet Take 10 mg by mouth daily. 05/20/2022 Active pantoprazole (PROTONIX) 40 mg Tablet, Delayed Release (E.C.) Take 40 mg by mouth daily. 09/20/2023 Active FLUoxetine (PROzac) 40 mg capsule Take 40 mg by mouth daily. 06/25/2022 Active spironolactone (ALDACTONE) 50 mg tablet Take 50 mg by mouth daily. 05/12/2022 Active torsemide (DEMADEX) 20 mg tablet Take 60 mg by mouth daily. Active empagliflozin (Jardiance) 25 mg tablet Take by mouth daily in the morning. Active ferrous sulfate 325 mg (65 mg iron) tablet Take 325 mg by mouth 3 times daily with meals. Active aspirin (ECOTRIN EC) 81 mg Tablet, Delayed Release (E.C.) Take 81 mg by mouth daily. Active Active Problems No known active problems Encounters Date Type Department Care Team Description 05/17/2024 Orders Only [facility] Oncology and Hematology - [place] [address] [place] [phone] Nico Bolivar MD Chronic anemia (Primary Dx) 05/08/2024 External Device Data [facility] ABSTRACTION Provider, Abstract 05/07/2024 External Device Data [facility] ABSTRACTION Provider, Abstract 04/30/2024 External Device Data [facility] ABSTRACTION Provider, Abstract from Last 3 Months Family History Medical History Relation Name Comments Diabetes Brother 4 brothers Heart Disease Brother 4 brothers No Known Problems Child 1 No Known Problems Child 2 Heart Disease Father Diabetes Mother Heart Disease Mother Diabetes Sister 5 sisters Heart Disease Sister 5 sisters Relation Name Status Comments Brother 4 brothers Child 1 Alive Child 2 Alive Father Mother Sister 5 sisters Social History Tobacco Use Types Packs/Day Years Used Date Smoking Tobacco: Former Cigarettes 1 20 0 08/14/2000 - 08/14/2020 Smokeless Tobacco: Never Tobacco Cessation:Counseling Given: Not Answered Alcohol Use Standard Drinks/Week Comments Yes 0 (1 standard drink = 0.6 oz pur e alcohol) Socially Comments Unknown Sex and Gender Information Value Date Recorded Sex Assigned at Female 10/22/2023 12:16 PM CDT Legal Sex Female 2:10 PM CDT Gender Identity Female 10/22/2023 12:16 PM CDT Sexual Orientation Straight 10/22/2023 12 :16 PM CDT Last Filed Vital Signs Vital Sign Reading Time Taken Comments Blood Pressure 150/66 01/09/2024 11:38 AM CDT Pulse 81 01/09/2024 11:30 AM CDT Temperature 36.3 C (97.3 F) 01/09/2024 11:30 AM CDT Respiratory Rate 16 01/09/2024 11:3 0 AM CDT Oxygen Saturation 91% 01/09/2024 11: 30 AM CDT Inhaled Oxygen Concentration - - Weight 121.2 kg (267 lb 3.2 oz) 024 11:30 AM CDT Height 154.9 cm (5' 1 ) 10/03/2023 2:33 PM CDT Body Mass Index 50.49 10/03/2023 2:33 PM CDT Plan of Treatment Upcoming Encounters Date Type Department Care Team (Late st Contact Info) Description 07/08/2024 1:00 PM CDT Office Visit [facility] Oncology and Hematology - [place] [address] [facility] [address] [place] [address] Nico Bolivar MD [address] [facility] [address] [place] [address] Health Maintenance Due Date Last Done Comments DIABETES ANNUAL FOOT EXAM 02/01/1972 DIABETES ANNUAL RETINAL EXAM 02/01/1972 DIABETES HBA1C Q 6 MONTHS 02/01/1972 DIABETES MICROALBUMIN ANNUAL SCREEN 02/01/1972 LDL CHOLESTEROL ANNUAL 02/01/1972 DTAP/TDAP/TD VACCINES (1 - Tdap) 1973 COLORECTAL SCREENING 1999 Colorectal Cancer Screening 1999 FIT-DNA Q 3 years 1999 FIT/FOBT Q 1 year 1999 Flex Sig/CT Colonography Q 5 years 1999 ZOSTER VACCINE (1 of 2) 02/01/2004 RSV VACCINE (60+ or ) (1 - Risk 60-74 years 1-dose series) 2014 BREAST CANCER SCREENING 08/14/2015 08/14/19 15, 08/13/2014, 07/17/2014 OSTEOPOROSIS SCREENING 2019 PNEUMOCOCCAL VACCINE 65+ YEA RS (2 of 2 - PCV) 03/01/2021 03/01/2020 INFLUENZA VACCINE (#1) 2023 03/01/2020 [place] Prev entative Visit/Annual Wellness Visit 04/17/2024 Insurance [facility] [id number] [place]ID [place] Care Teams Custom Seamstress Relationship Specialty Start Date End Date Adair Do MD [address] [place] [id number] PCP - General Family Practice 10/02/23
--- OUTSIDE RECORDS SUMMARY | 2024-05-30 15:55 | XMS_ITS | Clinical Summary ---
Author Organization [facility] Address [address] [place] [id number] Care Team Providers Care Pomologist Name Role Phone Gonzalo Gamboa MD Unavailable Franck Cook NP Primary Care Provider + [phone] Allergies Active Allergy Reactions Criticality Noted Date Comments Cephalexin Shortness of breath High Codeine Hcl Nausea & Vomiting Low 09/27/2022 Doxycycline Rash High 11/03/2020 Niacin Anaphylaxis High Tetracycline Other (See comments) High 11/03/2020 Reaction: Tetracyclines Anaphylaxis High Medications empagliflozin (Jardiance) 25 mg tablet Take 1 tablet (25 mg total) by mouth daily 2 Active spironolactone (ALDACTONE) 50 mg tablet Take 1 tablet (50 mg total) by mouth daily 3 Active aspirin 81 mg enteric coated tablet Take 1 tablet (81 mg total) by mouth daily 0 Active FLUoxetine (PROzac) 40 mg capsule Take 1 capsule (40 mg total) by mouth daily 3 Active famotidine (PEPCID) 40 mg tablet Take 1 tablet (40 mg total) by mouth nightly 0 Active albuterol HFA (PROVENTIL HFA,VENTOLIN HFA,PROAIR HFA) 90 mcg/actuation inhaler Inhale 2 puffs as needed 3 Active nystatin cream Apply topically daily 3 Active ezetimibe (ZETIA) 10 mg tablet Take 1 tablet (10 mg total) by mouth daily 3 Active ALPRAZolam (XANAX) 0.25 mg tablet Take 1 tablet (0.25 mg total) by mouth 2 (two) times a day 3 Active atorvastatin (LIPITOR) 80 mg tablet Take 1 tablet (80 mg total) by mouth nightly 3 Active torsemide (DEMADEX) 20 mg tablet Take 3 tablets (60 mg total) by mouth daily Four 20mg tablets daily Active tjuopnai-jawv-UZ -calcium-mins 18 mg iron-400 mcg-500 mg Ca tablet Take 1 tablet/capsule by mouth daily Active betamethasone, augmented, (DIPROLENE AF) 0.05 % cream Apply topically 2 (two) times a day Active oxygenIndication s:Dyspnea Administer 2 L/min into each nostril continuously 3L with activity Active meclizine (ANTIVERT) 25 mg tablet Active betamethasone dipropionate (DEL-BETA) 0.05 % cream APPLY CREAM TOPICALLY TWICE DAILY NEEDED FOR RASH Active doxycycline (doxycycline hyclate) 100 mg capsule Take 1 capsule twice a day by oral route as directed for 7 days. Active silver sulfadiazine (SSD) 1 % cream APPLY CREAM EXTERNALLY TO AFFECTED AREA TWICE DAILY APPLY 1.5MM THICK Active clopidogreL (PLAVIX) 75 mg tablet Take 1 tablet by mouth once daily 90 tablet 3 4 Active Additional Information Patient not taking.Reported on 02/12/2024 diltiaZEM CD (CARDIZEM CD) 360 mg 24 hr capsule Take 1 capsule (360 mg total) by mouth daily Active ferrous sulfate 325 mg (65 mg of elemental iron) tabletIndication s:Iron Deficiency Anemia Take 1 tablet (65 mg of elemental iron total) by mouth 3 (three) times a day with meals Active Active Problems Problem Noted Date Diagnosed Date Stenosis of right subclavian vein 02/12/2024 Assessment & Plan (02/12/2024 3:23 PM CDT): Impression: Patient denies any claudication to the right upper extremity, numbness or tingling or ulcerations to the fingers of the right hand. Patient has evidence of subclavian steal syndrome with a 55 mmHg brachial pressure difference to the right upper extremity. Plan: No surgical interventions indicated at this time. -continue ongoing risk factor modifications. -patient to follow-up in one year for re-evaluation. Type 2 diabetes mellitus 07/31/2023 Physical deconditioning 01/16/2023 PVD (peripheral vascular disease) 10/25/2022 Assessment & Plan (11/15/2022 10:34 AM CDT): Normal lower extremity Doppler. Patient's symptoms not likely associated with any arterial etiology. Further management as per PCP Assessment & Plan (10/25/2022 3:48 PM CDT): History of low back pain however continues to have fatigue and pain to lower extremity with ambulation. Given her history of chronic low back pain along with morbid obesity the symptoms could be due to neurogenic pain. Lower extremities are warm well perfused palpable distal pulses. Will obtain a lower extremity arterial Doppler and follow-up in 2 weeks. Intermittent claudication 10/17/2022 Essential hypertension 08/11/2022 Assessment & Plan (02/12/2024 3:25 PM CDT): Impression: Chronic and stable. Plan: Continue Cardizem Assessment & Plan (01/25/2023 2:17 PM CDT): Stable continue amlodipine 5 mg. Assessment & Plan (10/25/2022 3:43 PM CDT): Continue diltiazem. Assessment & Plan (08/26/2022 10:12 AM CDT): Stable continue diltiazem 240 mg. Assessment & Plan (08/17/2022 10:15 AM CDT): Stable continue diltiazem 240 mg. Morbid obesity with BMI of 50.0-59.9, adult 07/17 Carotid artery stenosis 05/26/2022 Assessment & Plan (02/12/2024 3:24 PM CDT): Impression: Patient has a history of a right TCAR. She remains asymptomatic. Carotid duplex reveals patent stent to the right internal carotid artery and less than 50% stenosis to left internal carotid artery. Plan: Continue ongoing risk factor modifications. -continue aspirin. -patient to follow-up in 1 year for re-evaluation with repeat carotid duplex. Assessment & Plan (07/31/2023 2:32 PM CDT): Bilateral carotid artery stenosis status post right TCAR 2022 and left endarterectomy 2008. Remains asymptomatic. He has only been taking Plavix 3 times a week and was off aspirin because of bruising to her arms. Discussed the need to be on at least Plavix daily patient is now agreeable. Plan: Follow-up in 6 months for routine surveillance with a carotid duplex Assessment & Plan (01/25/2023 2:17 PM CDT): Status post right TCAR. Overall doing well. Stent widely patent. Distal left internal carotid artery with severe greater than 70% stenosis however not at 80%. Continue risk factor modification with ASA Plavix statin therapy. Follow-up in 6 months with repeat carotid duplex. Assessment & Plan (08/26/2022 10:12 AM CDT): High-grade right internal carotid artery stenosis, asymptomatic. Risks benefits alternatives to right CEA versus TCAR discussed with the patient, risks including bleeding, infection, nerve injury, stroke, and need for further surgery. I will evaluate her CTA with our TCAR wrap, given her underlying pulmonary disease and continuous oxygen I would favor a TCAR if she is a candidate. Continue ASA and statin therapy. We will start Plavix. We will get cardiac risk assessment and I will call her to discuss further. Assessment & Plan (08/17/2022 10:14 AM CDT): High-grade right internal carotid artery stenosis based on CTA. Recommend risk factor modification with ASA, statin therapy in good blood pressure control. Carotid duplex ordered for further evaluation, pending this she is likely going to need a right CEA versus TCAR Congestive heart failure ([facility]) 08/23/2021 08/17/2022 Sensation of lump in throat 05/26/2021 Localized swelling, mass and lump, lower limb, b ilateral 03/04/2021 08/17/2022 Asthma 11/17/2020 Cough 11/17/2020 Decreased diffusion capacity of lung 11/17/2020 Dependence on supplemental oxygen 11/17/2020 Multiple nodules of lung 11/17/2020 Chest pain, unspecified 11/03/2020 08/18/19 Disorder of arteries and arterioles, unspecified 11/03/2020 08/17/2022 Dizziness 11/03/2020 08/17/2022 Morbid obesity 11/03/2020 08/17/2022 Shortness of breath 11/03/2020 08/17/2022 Depression 11/02/2020 08/17/2022 Hyperlipidemia 11/02/2020 08/17/2022 Assessment & Plan (02/12/2024 3:25 PM CDT): Impression: Chronic and stable. Plan: Continue Zetia and atorvastatin. Assessment & Plan (01/25/2023 2:17 PM CDT): Stable continue Lipitor 80 mg. Assessment & Plan (08/26/2022 10:12 AM CDT): Stable continue Lipitor 80 mg. Assessment & Plan (08/17/2022 10:15 AM CDT): Stable continue Lipitor 80 mg. Kidney stones 11/02/2020 08/17/2022 Obstructive sleep apnea (adult) (pediatric) 10/1508/17/2022 Tobacco dependence syndrome 11/02/2020 0506/2022 Abscess of breast 02/27/2014 Resolved Problems Problem Noted Date Diagnosed Date Resolved Date Carotid stenosis, asymptomatic, right 09/27/2022 02/12/2024 Assessment & Plan (11/15/2022 10:34 AM CDT): Continue routine surveillance with bilateral carotid artery duplex Continue dual antiplatelet therapy Assessment & Plan (10/25/2022 3:42 PM CDT): Following up today status post TCAR 09/27/2022. Patient states she is recovering well denies any current pain or concerns. Incision to the right neck is healed. No neurological deficits. Plan: Continue aspirin, Plavix and statin therapy. Follow-up in 3 months for routine surveillance with a carotid duplex. Occlusion and stenosis of un specified carotid artery 05/26/2022 08/31/2023 Immunizations Name Administration Dates Next Due Influenza, Quadrivalent, Hig h Dose, Preservative Free, Intrr 03/01/2020 Influenza, Unspecified 02/16/2020 Pneumococcal Polysaccharide PPV23 03/01/2020 Surgical History Surgery Date Site/Laterality Comments CAROTID ENDARTERECTOMY 04/17/2008 - 04/16/2009 Left CYST REMOVAL 04/17/2013 - 04/16/2014 Right cyst removed from R breast CHOLECYSTECTOMY 04/17/1983 - 04/16/1984 N/A HYSTERECTOMY 04/17/1985 - 04/16/1986 N/A CATARACT EXTRACTION 04/17/2020 - 04/16/2021 Bilateral different times for each side - both in same year Medical History Medical History Date Comments Hypertension CHF (congestive heart failure) (CMS/HCC) (HCC) PONV (postoperative nausea and vomiting) Hyperlipidemia Peripheral vascular disease (HCC) COPD (chronic obstructive pulmonary disease) (HC C) Oxygen dependent 2020 Arthritis Obesity Cataract 2020 removed Sleep apnea GERD (gastroesophageal reflux disease) Type 2 diabetes mellitus (HCC) 07/31/2023 Depression Anxiety Family History Medical History Relation Name Comments Heart attack Father Luigi Velasco Heart disease Mother Francisca Velasco Heart failure Mother Francisca Velasco Lung cancer Mother Francisca Velasco Relation Name Status Comments Father Luigi Velasco Mother Francisca Velasco Social History Tobacco Use Types Packs/Day Years Used Date Smoking Tobacco: Former Cigarettes 1 40 0 08/14/1980 - 08/14/2020 Smokeless Tobacco: Never Tobacco Cessation:Counseling Given: Not Answered Social Connection and Isolat ion Panel [NHANES] Answer Date Recorded In a typical week, how many times do you talk on the phone with family, friends, or neighbors? More than three times a week 09/28/2022 Frequency of Social Gatherin gs with Friends and Family Not on file 09/28/2022 How often do you attend chur ch or judaism services? Never 09/28/2022 Do you belong to any clubs o r organizations such as pentecostal groups, unions, fraternal or athletic groups, or school groups? No 09/28/2022 How often do you attend meet ings of the clubs or organizations you belong to? Never 09/28/2022 Are you , , di vorced, , never , or living with a partner? 09/28/2022 AUDIT-C Answer Date Recorded Q1: How often do you have a drink containing alc ohol? Monthly or less 09/27/2022 Q2: How many drinks containi ng alcohol do you have on a typical day when you are drinking? 1 or 2 09/27/2022 Q3: How often do you have si x or more drinks on one occasion? Never 09/27/2022 Overall Financial Resource Strain (CARDIA) Answe r Date Recorded How hard is it for you to pa y for the very basics like food, housing, medical care, and heating? Not hard at all 09/28/2022 Hunger Vital Sign Answer Date Recorded Within the past 12 months, y ou worried that your food would run out before you got the money to buy more. Never true 09/29/19 23 Within the past 12 months, t he food you bought just didn't last and you didn't have money to get more. Never true 09/28/2022 PRAPARE - Transportation Answer Date Re corded In the past 12 months, has l ack of transportation kept you from medical appointments or from getting medications? No 09/15 In the past 12 months, has l ack of transportation kept you from meetings, work, or from getting things needed for daily living? No 09/28/2022 Housing Stability Vital Sign Answer Ahmet e Recorded In the last 12 months, was t here a time when you were not able to pay the mortgage or rent on time? No 09/28/2022 In the last 12 months, how many places have you lived? 1 09/28/2022 In the last 12 months, was t here a time when you did not have a steady place to sleep or slept in a longterm (including now)? No 09/28/2022 Personal Safety Answer Date Recorded Have you ever been in or are you currently in a harmful physical or emotional relationship or is someone making you feel afraid or unsafe? Denies 09/27/2022 Comments Unknown Sex and Gender Information Value Date Recorded Sex Assigned at Not on file Legal Sex Female 5:22 AM DELI MANAGER Gender Identity Female 10/12/2022 10:18 AM CDT Sexual Orientation Not on file Obstetrics History Last Filed Vital Signs Vital Sign Reading Time Taken Comments Blood Pressure 153/75 02/12/2024 2:31 PM CDT Pulse 86 02/12/2024 2:31 PM CDT Temperature 35.4 C (95.7 F) 01/16/2024 2:15 PM CDT Respiratory Rate 18 09/28/2022 1:13 PM CDT Oxygen Saturation 97% 01/16/2024 2:1 5 PM CDT 2 liters of oxygen Inhaled Oxygen Concentration - - Weight 120.2 kg (265 lb) 02/26/2024 1:0 2 PM DELI MANAGER Height 154.9 cm (5' 1 ) 02/26/2024 1:02 PM DELI MANAGER Body Mass Index 50.07 02/26/2024 1:02 PM DELI MANAGER Plan of Treatment Health Maintenance Due Date Last Done Comments Albumin Creatinine Ratio, Urine 1954 Colon Cancer Screening-Colonoscopy 1954 Depression Screening 1954 Hemoglobin A1C 1954 Hepatitis C Screening 1954 Osteoporosis Screening-Bone Density Scan 1954 Dilated Eye Exam 1954 Foot Exam 1954 Lipid Panel 1954 DTaP/Tdap/Td Vaccine (1 - Tdap) 1965 Hepatitis B Screening 02/01/1972 Zoster Vaccine (1 of 2) 02/01/2004 Breast Cancer Screening-Mammogram 07/18/2015 015 Well Visit 65+ 2019 Pneumococcal vaccine 65+ (2 of 2 - PCV) 03/01/2021 1 05/01/2019 eGFR 09/14/2023 09/13/2022 Fall Risk Assessment 09/29/2023 09/28/2022 Covid-19 Vaccine (2 - season) 2023 Influenza Vaccine (#1) 2023 03/01/2020, 2019 Lung Cancer Screening 02/26/2025 02/26/2024 Medical Devices Implanted Type Area Customer Support Analyst Device Identifier Shelf Expiration Date Model / Serial / Lot [employer] [facility] [employer] Flex 8mm .065in 40mm 57cm Delivery System Angle Tip [id number] - [id number] Implanted:Qty: 1 on 09/27/2022 by Brando Pearson MD at [facility] 12/15/2024 [id number]-[id number] / / [id number] Procedures Procedure Name Priority Date/Time Associated Diagnosis Comments CT LUNG CANCER SCREENING Schedule Routine, Read Routine (OP Routine) 02/26/2024 12:57 PM DELI MANAGER Nicotine dependence, cigarettes, in remission EGFR Routine 09/13/2022 10:54 AM CDT Carotid stenosis, right SCREENING MAMMOGRAM Routine 07/17/2014 8:41 AM CDT from Last 3 Months or Most Recently Relevant to Health Maintenance Results * CT Lung Cancer Screening (02/26/2024 12:57 PM DELI MANAGER) Anatomical Region Laterality Modality Chest N/A Computed Tomogra phy 02/29/2024 6:23 AM DELI MANAGER Narrative 02/29/2024 6:33 AM DELI MANAGER EXAM DESCRIPTION: CT LUNG CANCER SCREENING REASON FOR STUDY: Screening CT of the chest in a former smoker with a 45 pack year smoking history. Additional history: None. TECHNIQUE: Low dose CT scan of the chest was performed without intravenous contrast using helical scanning technique. The exam extends from the lung apices through the lung bases. Automatic exposure control was used as a dose optimization technique. NOTE: This study was performed for the specific purposes of lung cancer screening and is not an alternative to diagnostic chest CT. RADIATION DOSE: CT dose index volume (CTDIvol) = 3.82 mGy COMPARISON: 02/01/2023 FINDINGS: SMOKING RELATED LUNG DISEASE: Emphysema LUNG NODULES: No suspicious nodules. There is a large calcified granuloma in the left upper lobe. CORONARY ARTERY CALCIFICATION: Present OTHER: No adenopathy was seen. Calcified left hilar lymph nodes are seen. Pulmonary artery diameter is top normal. Faint mosaic attenuation is probably due to small airways disease. IMPRESSION: Coronary artery calcification No suspicious nodules. Lung-RADS category 2S: Benign appearance or behavior. Finding other than a pulmonary nodule which is potentially clinically significant. Recommendation: Low dose Screening CT of chest in 12 months. THIS IS AN ELECTRONICALLY VERIFIED FINAL REPORT 02/29/2024 6:33 AM - Electronically signed by Austin Valle M.D. BRONSON T: Report ID: [id number] Reading Location: [id number] Tim Escobar MD IMG CT PROCEDURES Final Result * eGFR (09/13/2022 10:54 AM CDT) eGFR 35 mL/min/1. 73 m2 [facility] DIXON Comment: Interpretive Data Reference Interval Normal >/= 90 mL/min/1.73m2 Mildly decreased* 60 - 89 mL/min/1.73m2 Mildly to moderately decreased 45 - 59 mL/min/1.73m2 Moderately to severely decreased 30 - 44 mL/min/1.73m2 Severely decreased 15 - 29 mL/min/1.73m2 Kidney Failure < 15 mL/min/1.73m2 *Relative to young adult level Estimated glomerular filtration rate is determined by the 2020 CKD-EPI equation recommended by the National Kidney Foundation (A Unifying Approach to GFR Estimation: Recommendations of the NKF-ASK Task Force on Reassessing the Inclusion of Race in Diagnosing Kidney Disease, JASN 2020). The CKD-EPI equation should not be used for patients with unstable renal function and has not been validated in children and those over 70. Current interpretive data was last reviewed 2021. Blood 09/13/2022 10:5 4 AM CDT 09/13/2022 10:57 AM CDT Brando Pearson MD LAB BLOOD ORDERABLES Final Resul t [facility] [address] [facility] Department of Laboratories [place], [place] [id number] * Screening Mammogram (07/17/2014 8:41 AM CDT) Anatomical Region Laterality Modality Breast N/A Mammography 07/17/2014 8:41 AM CDT Narrative 08/06/2014 1:53 PM CDT LIANNE ALCARAZ M.D. FINAL REPORT ACC# Date Time Exam [id number] Jul 17, 2014 08:41:00 [facility] [id number] Screening Mamm Bilat Technologist(s): Eliza Fischer; ; EXAMINATION: ADDENDUM 08/06/2014 01:53PM ADDENDUM: 08/06/2014 The present examination has been compared to prior imaging studies performed at [facility] on 02/15/2013, 01/05/2012 and 04/15/2006. Focal asymmetry in the right breast requires additional evaluation. Additional views are recommended. OVERALL FINAL ASSESSMENT: BI-RADS CATEGORY 0: Incomplete: Need additional imaging evaluation. END OF ADDENDUM Mammogram Technique: Bilateral Full-Field Digital Screening Mammogram was performed. Views obtained: bilateral craniocaudal and bilateral mediolateral oblique. Computer Aided Detection was performed with [employer]3 version 9.3. Mammogram Findings: The breasts are almost entirely fat. There is a focal asymmetry in the middle of the right breast at 9 o'clock. There is no suspicious abnormality in the left breast. IMPRESSION: Focal asymmetry in the right breast requires additional evaluation. COMPARISON TO PRIOR FILMS is recommended. OVERALL FINAL ASSESSMENT: BI-RADS CATEGORY 0: Incomplete: Need Additional Imaging Evaluation - Comparison with Prior Studies Requested By: Dictated By: LIANNE ALCARAZ M.D. on Jul 17 2014 8:55A This document has been electronically signed by: LIANNE ALCARAZ M.D. on Jul 17 2014 8:55A on Aug 06 2014 1:54P This Addendum has been electronically signed by: LIANNE ALCARAZ M.D. on Aug 06 2014 1:53P [id number] Procedure Note Provider, MD Reyes - 08/04/2016 LIANNE ALCARAZ M.D. FINAL REPORT ACC# Date Time Exam [id number] Jul 17, 2014 08:41:00 [facility] [id number] Screening Mamm Bilat Technologist(s): Eliza Fischer; ; EXAMINATION: ADDENDUM 08/06/2014 01:53PM ADDENDUM: 08/06/2014 The present examination has been compared to prior imaging studies performed at [facility] on 02/15/2013, 01/05/2012 and 04/15/2006. Focal asymmetry in the right breast requires additional evaluation. Additional views are recommended. OVERALL FINAL ASSESSMENT: BI-RADS CATEGORY 0: Incomplete: Need additional imaging evaluation. END OF ADDENDUM Mammogram Technique: Bilateral Full-Field Digital Screening Mammogram was performed. Views obtained: bilateral craniocaudal and bilateral mediolateral oblique. Computer Aided Detection was performed with [employer].3 version 9.3. Mammogram Findings: The breasts are almost entirely fat. There is a focal asymmetry in the middle of the right breast at 9o'clock. There is no suspicious abnormality in the left breast. IMPRESSION: Focal asymmetry in the right breast requires additional evaluation. COMPARISON TO PRIOR FILMS is recommended. OVERALL FINAL ASSESSMENT: BI-RADS CATEGORY 0: Incomplete: Need Additional Imaging Evaluation - Comparison with Prior Studies Requested By: Dictated By: LIANNE ALCARAZ M.D. on Jul 17 2014 8:55A This document has been electronically signed by: LIANNE ALCARAZ M.D. on Jul 17 2014 8:55A on Aug 06 2014 1:54P This Addendum has been electronically signed by: LIANNE ALCARAZ M.D. on Aug 06 2014 1:53P [id number] Historical Provider MD M[facility]ENO MAMMO PROCEDURES Cleopatra l Result from Last 3 Months or Most Recently Relevant to Health Maintenance Insurance [employer] IDPA MEDICARE [employer] MEDICARE [employer] IDPA Advance Directives For more information, please contact: [phone] Documents on File Type Date Recorded Patient Press Operator Helper Expl anation Advance Directives and Venu g Will 09/27/2022 5:52 AM * Full Code (Latest Code Status on File) Date Activated Date Inactivated Comments 09/27/2022 11:52 AM 09/28/2022 8:13 PM Care Teams Pomologist Relationship Specialty Start Date End Date Franck Cook NP [address] [facility] [address] [place] [address] PCP - General Nurse Practitioner 09/15/23 [place] [id number] [address] [address] Consulting Physician Cardiology 02/01/23
--- OUTSIDE RECORDS SUMMARY | 2024-05-30 15:56 | XMS_ITS | Referral Summary ---
Author Organization [facility] Address [address] [place] [address] Care Team Providers Care Research Program Assistant Name Role Phone Gonzalo Gamboa MD Unavailable Franck Cook NP Primary Care Provider + [phone] Allergies Active Allergy Reactions Criticality Noted Date [...] mouth daily Four 20mg tablets daily Active bhwesdmp-fybs-GX -calcium-mins 18 mg iron-400 mcg-500 mg Ca [...] right CEA versus TCAR Congestive heart failure ([facility]) 08/23/2021 08/17/2022 Sensation of lump in throat [...] Influenza, Unspecified 02/16/2020 Pneumococcal Polysaccharide PPV23 03/01/2020 Social History Tobacco Use Types Packs/Day Years [...] 09/28/2022 How often do you attend chur Mindmancer or episcopal services? Never 09/28/2022 Do you belong to any clubs o r organizations such as temple groups, unions, fraternal or athletic groups, or [...] place to sleep or slept in a fci (including now)? No 09/28/2022 Personal Safety Answer Date Recorded Have you ever been in or are you currently in a harmful physical or emotional relationship or is someone making you feel afraid or unsafe? Denies 09/27/2022 Comments Unknown Sex and Gender Information Value Date Recorded Sex Assigned at Not on file Legal Sex Female 5:22 AM DOCK COORDINATOR Gender Identity Female 10/12/2022 10:18 AM CDT Sexual Orientation Not on file Last Filed Vital Signs Vital Sign Reading [...] kg (265 lb) 02/26/2024 1:0 2 PM DOCK COORDINATOR Height 154.9 cm (5' 1 ) 02/26/2024 1:02 PM DOCK COORDINATOR Body Mass Index 50.07 02/26/2024 1:02 PM DOCK COORDINATOR Plan of Treatment Not on file Medical Devices Implanted Type Area Event Management Consultant Device Identifier Shelf Expiration Date Model / Serial / Lot Elephanti [facility] Enroute Uber Flex 8mm .065in 40mm 57cm Delivery System Angle Tip Sr-0840-Cs - [id number] Implanted:Qty: 1 on 09/27/2022 by Brando Pearson MD at [facility] 12/15/2024 SR-0840-CS / / [id number] Procedures Procedure Name Priority Date/Time Associated Diagnosis Comments CT LUNG CANCER SCREENING Schedule Routine, Read Routine (OP Routine) 02/26/2024 12:57 PM DOCK COORDINATOR Nicotine dependence, cigarettes, in remission EGFR Routine 09/13/2022 10:54 AM CDT Carotid stenosis, right SCREENING MAMMOGRAM Routine 07/17/2014 8:41 AM CDT from Last 3 Months or Most Recently Relevant to Health Maintenance Results * CT Lung Cancer Screening (02/26/2024 12:57 PM DOCK COORDINATOR) Anatomical Region Laterality Modality Chest N/A Computed Tomogra phy 02/29/2024 6:23 AM DOCK COORDINATOR Narrative 02/29/2024 6:33 AM DOCK COORDINATOR EXAM DESCRIPTION: CT LUNG CANCER SCREENING REASON [...] Austin Valle M.D. BRONSON T: Report ID: [id number] Reading Location: [id number] Tim Escobar MD IMG CT PROCEDURES Final [...] LAB BLOOD ORDERABLES Final Resul t JUANJO [address] [facility] Department of Laboratories [place], [place] [id number] * Screening Mammogram (07/17/2014 8:41 AM CDT) Anatomical Region Laterality Modality Breast N/A Mammography 07/17/2014 8:41 AM CDT Narrative 08/06/2014 1:53 PM CDT LIANNE ALCARAZ M.D. FINAL REPORT ACC# Date Time Exam [id number] Jul 17, 2014 08:41:00 [facility] [address] Screening Mamm Bilat Technologist(s): Eliza Fischer; ; EXAMINATION: ADDENDUM 08/06/2014 01:53PM ADDENDUM: 08/06/2014 The present examination has been compared to prior imaging studies performed at [facility] on 02/15/2013, 01/05/2012 and 04/15/2006. Focal asymmetry in the right breast requires additional evaluation. Additional views are recommended. OVERALL FINAL ASSESSMENT: BI-RADS CATEGORY 0: Incomplete: Need additional imaging evaluation. END OF ADDENDUM Mammogram Technique: Bilateral Full-Field Digital Screening Mammogram was performed. Views obtained: bilateral craniocaudal and bilateral mediolateral oblique. Computer Aided Detection was performed with Eagle Alpha3 version 9.3. Mammogram Findings: The breasts are [...] ALCARAZ M.D. on Aug 06 2014 1:53P [id number] Procedure Note Provider, MD Reyes - 08/04/2016 LIANNE ALCARAZ M.D. FINAL REPORT ACC# Date Time Exam [id number] Jul 17, 2014 08:41:00 [facility] [address] Screening Mamm Bilat Technologist(s): Eliza Fischer; ; EXAMINATION: ADDENDUM 08/06/2014 01:53PM ADDENDUM: 08/06/2014 The present examination has been compared to prior imaging studies performed at [facility] on 02/15/2013, 01/05/2012 and 04/15/2006. Focal asymmetry in the right breast requires additional evaluation. Additional views are recommended. OVERALL FINAL ASSESSMENT: BI-RADS CATEGORY 0: Incomplete: Need additional imaging evaluation. END OF ADDENDUM Mammogram Technique: Bilateral Full-Field Digital Screening Mammogram was performed. Views obtained: bilateral craniocaudal and bilateral mediolateral oblique. Computer Aided Detection was performed with Smaato.3 version 9.3. Mammogram Findings: The breasts are [...] ALCARAZ M.D. on Aug 06 2014 1:53P [id number] Historical Provider MD MORENO MAMMO PROCEDURES Cleopatra l Result from Last 3 Months or Most Recently Relevant to Health Maintenance Insurance MEDICARE SOLUTIONS IDPA MEDICARE [employer] MEDICARE SOLUTIONS IDPA Advance Directives For more information, please contact: [phone] Documents on File Type Date Recorded Patient Sportspersons Expl anation Advance Directives and Venu g Will 09/27/2022 5:52 AM * Full Code (Latest Code Status on File) Date Activated Date Inactivated Comments 09/27/2022 11:52 AM 09/28/2022 8:13 PM Care Teams Research Program Assistant Relationship Specialty Start Date End Date Franck Cook NP [address] [facility] [address] [place] [address] PCP - General Nurse Practitioner 09/15/23 [place] [address] [address] Consulting Physician Cardiology 02/01/23
[2024-05-30 16:33] LABS: Alanine Aminotransferase 39 U/L (6-35); Albumin Level 4.5 g/dL (3.5-5.1); Alkaline Phosphatase 190 U/L (38-126); Anion Gap 13 mmol/L (4-12); Aspartate Amino Transferase 49 U/L (14-36); Bilirubin,Total 0.6 mg/dL (0.2-1.3); Blood Urea Nitrogen 41 mg/dL (7-17); Calcium 9.4 mg/dL (8.4-10.2); Carbon Dioxide 29 mmol/L (22-30); Chloride 96 mmol/L (98-107); Cholesterol 164 mg/dL (0-200); Estimated Glomerular Filt Rate 50; Glucose 99 mg/dL (65-110); HDL Direct 32 mg/dL; Potassium 3.8 mmol/L (3.4-5.0); Sodium 138 mmol/L (137-145); Triglycerides 317 mg/dL (<150)
[2024-05-30 16:34] LABS: Albumin Level 4.6 g/dL (3.5-5.1); Anion Gap 13 mmol/L (4-12); Blood Urea Nitrogen 41 mg/dL (7-17); Calcium 9.3 mg/dL (8.4-10.2); Carbon Dioxide 29 mmol/L (22-30); Chloride 96 mmol/L (98-107); Estimated Glomerular Filt Rate 50; Glucose 97 mg/dL (65-110); Potassium 3.8 mmol/L (3.4-5.0); Sodium 138 mmol/L (137-145)
[2024-05-30 16:44] LABS: LDL Cholesterol Direct 96 mg/dL
[2024-05-30 17:02] LABS: Creatinine Urine 36.6 mg/dL; Total Protein Urine Random 12 mg/dL; Ur Ttl Prot Creatinine Ratio 0.33 mg/mg (0-0.20)
[2024-05-30 17:05] LABS: Parathyroid Intact 270.8 pg/mL (14.5-75.2)
[2024-05-30 17:40] LABS: Vitamin D 25 Hydroxy 34.2 ng/mL
[2024-05-30 18:36] LABS: Hemoglobin A1C 6.5 % (<5.7)
[2024-06-03 20:22] LABS: Immunofixation, Serum Normal pattern.
== END 2024-05-30 15:51 | disposition home or self-care (01) ==
PROVIDERS: PCP Nurse Practitioner; Referring Provider Internal Medicine Hematology & Oncology; Visit Provider Internal Medicine Nephrology
DX: E78.5 Hyperlipidemia, unspecified (principal); D64.9 Anemia, unspecified; E11.22 Type 2 diabetes mellitus with diabetic chronic kidney disease; I12.9 Hypertensive chronic kidney disease with stage 1 through stage 4 chronic kidney disease, or unspecified chronic kidney disease; N18.31 Chronic kidney disease, stage 3a; N25.81 Secondary hyperparathyroidism of renal origin; E55.9 Vitamin D deficiency, unspecified; R77.8 Other specified abnormalities of plasma proteins
CPT/HCPCS: 36415; 80053; 80061; 80069; 82306; 82570; 83036; 83970; 84156; 86334; 86335

== ENCOUNTER 2024-07-05 12:03 | Outpatient (CLI) | payer MEDICARE, MEDICAID, SELFPAY ==
--- OUTSIDE RECORDS SUMMARY | 2024-07-05 12:58 | XMS_ITS | Clinical Summary ---
Author Organization [facility] Address [address] [place] [address] Care Team Providers Care Fruit Checker Name Role Phone Adair Do MD Primary Care Provider [phone] Allergies Active Allergy Reactions Criticality Noted Date [...] Encounters Date Type Department Care Team Description 07/03/2024 External Device Data STL ABSTRACTION Provider, Abstract 06/22/2024 External Device Data ST[facility] ABSTRACTION Provider, Abstract 06/21/2024 External Device Data [facility] ABSTRACTION Provider, Abstract 06/18/2024 External Device Data ST[facility] ABSTRACTION Provider, Abstract 06/04/2024 External Device Data STL ABSTRACTION Provider, Abstract 05/17/2024 Orders Only [facility] - [place] [address] [address] Nico Bolivar MD Chronic anemia (Primary [...] Description 07/08/2024 1:00 PM CDT Office Visit [facility] [place] [address] [facility] [address] [place] [address] Nico Bolivar MD [address] [facility] [address] [place] [address] Health Maintenance Due Date Last [...] Flex Sig/CT Colonography Q 5 years 1999 Lung Cancer Screening 02/01/2004 ZOSTER VACCINE (1 of 2) 02/01/2004 RSV VACCINE (60+ or ) (1 - Risk 60-74 years 1-dose series) 2014 BREAST CANCER SCREENING 08/14/2015 08/14/19, 08/13/2014, 07/17/2014 OSTEOPOROSIS SCREENING 2019 PNEUMOCOCCAL VACCINE 50+ YEA RS (2 of 2 - PCV) 03/01/2021 03/01/2020 INFLUENZA VACCINE (#1) 2023 03/01/2020 Medicare [place] ([place]) Prev entative Visit/Annual Wellness Visit 04/17/2024 Insurance [facility] [id number] MEDICAID [place] Care Teams Fruit Checker Relationship Specialty Start Date End Date Adair Do MD [address] [place] [id number] PCP - General Family Practice 10/02/23
--- OUTSIDE RECORDS SUMMARY | 2024-07-05 12:58 | XMS_ITS | Clinical Summary ---
Author Organization [facility] Address [address] [place] [address] Care Team Providers Care Hvac Technician Residential Name Role Phone Gonzalo Gamboa MD Unavailable Franck Cook NP Primary Care Provider + [phone] Allergies Active Allergy Reactions Criticality Noted Date [...] mouth daily Four 20mg tablets daily Active oubtdcaz-nvyx-IK -calcium-mins 18 mg iron-400 mcg-500 mg Ca [...] right CEA versus TCAR Congestive heart failure 08/23/2021 023 Sensation of lump in throat 05/26/2021 Localized [...] (adult) (pediatric) 10/1508/17/2022 Tobacco dependence syndrome 11/02/2020 05/06/2022 Abscess of breast 02/27/2014 Resolved Problems Problem [...] of un specified carotid artery 05/26/2022 08/31/2023 Encounters Date Type Department Care Team Description 07/01/2024 Orders Only [facility] Pulmonary at [address] [place] [address] Dori Simmons LPN Chronic respiratory failure with hypoxia (HCC) (Primary Dx) from Last 3 Months Immunizations Immunization Administration Dates Next Due Influenza, Quadrivalent, Hig [...] Date Comments Hypertension CHF (congestive heart failure) (HCC) PONV (postoperative nausea and vomiting) Hyperlipidemia Peripheral vascular disease COPD (chronic obstructive pulmonary disease) (HC C) [...] file 09/28/2022 How often do you attend Kitchensurfing or amish services? Never 09/28/2022 Do you belong to any clubs o r organizations such as sikhism groups, unions, fraternal or athletic groups, or [...] place to sleep or slept in a fdc (including now)? No 09/28/2022 Personal Safety Answer Date Recorded Have you ever been in or are you currently in a harmful physical or emotional relationship or is someone making you feel afraid or unsafe? Denies 09/27/2022 Comments Unknown Sex and Gender Information Value Date Recorded Sex Assigned at Not on file Legal Sex Female 5:22 AM CLINICAL PHARMACOLOGIST Gender Identity Female 10/12/2022 10:18 AM CDT [...] kg (265 lb) 02/26/2024 1:0 2 PM CLINICAL PHARMACOLOGIST Height 154.9 cm (5' 1 ) 02/26/2024 1:02 PM CLINICAL PHARMACOLOGIST Body Mass Index 50.07 02/26/2024 1:02 PM CLINICAL PHARMACOLOGIST Plan of Treatment Health Maintenance Due Date [...] 02/26/2025 02/26/2024 Medical Devices Implanted Type Area Assistant Professor Of Physics Device Identifier Shelf Expiration Date Model / Serial / Lot [facility] [employer] Enroute Uber Flex 8mm .065in 40mm 57cm Delivery System Angle Tip Sr-0840-Cs - [id number] Implanted:Qty: 1 on 09/27/2022 by Brando Pearson MD at [facility] 12/15/2024 SR-0840-CS / / [id number] Procedures Procedure Name Priority Date/Time Associated Diagnosis Comments CT LUNG CANCER SCREENING Schedule Routine, Read Routine (OP Routine) 02/26/2024 12:57 PM CLINICAL PHARMACOLOGIST Nicotine dependence, cigarettes, in remission EGFR Routine 09/13/2022 10:54 AM CDT Carotid stenosis, right SCREENING MAMMOGRAM Routine 07/17/2014 8:41 AM CDT from Last 3 Months or Most Recently Relevant to Health Maintenance Results * CT Lung Cancer Screening (02/26/2024 12:57 PM CLINICAL PHARMACOLOGIST) Anatomical Region Laterality Modality Chest N/A Computed Tomogra phy 02/29/2024 6:23 AM CLINICAL PHARMACOLOGIST Narrative 02/29/2024 6:33 AM CLINICAL PHARMACOLOGIST EXAM DESCRIPTION: CT LUNG CANCER SCREENING REASON [...] Austin Valle M.D. BRONSON T: Report ID: [id number] Reading Location: [place] [address] Tim Escobar MD IMG CT PROCEDURES Final [...] of Race in Diagnosing Kidney Disease, JASN 202). The CKD-EPI equation should not be used for patients with unstable renal function and has not been validated in children and those over 70. Current interpretive data was last reviewed 2021. Blood 09/13/2022 10:5 4 AM CDT 09/13/2022 10:57 AM CDT Brando Pearson MD LAB BLOOD ORDERABLES Final Resul t JUANJO DIXON [address] [facility] Department [place] [address] * Screening Mammogram (07/17/2014 8:41 AM CDT) Anatomical Region Laterality Modality Breast N/A Mammography 07/17/2014 8:41 AM CDT Narrative 08/06/2014 1:53 PM CDT LIANNE ALCARAZ M.D. FINAL REPORT ACC# Date Time Exam [id number] Jul 17, 2014 08:41:00 [facility] [address] Screening Mamm Bilat Technologist(s): Eliza Fischer; ; EXAMINATION: ADDENDUM 08/06/2014 01:53PM ADDENDUM: 08/06/2014 The present examination has been compared to prior imaging studies performed at [facility]. [facility]3] on 02/15/2013, 01/05/2012 and 04/15/2006. Focal asymmetry in the right breast requires additional evaluation. Additional views are recommended. OVERALL FINAL ASSESSMENT: BI-RADS CATEGORY 0: Incomplete: Need additional imaging evaluation. END OF ADDENDUM Mammogram Technique: Bilateral Full-Field Digital Screening Mammogram was performed. Views obtained: bilateral craniocaudal and bilateral mediolateral oblique. Computer Aided Detection was performed with DanceTrippin.3 version 9.3. Mammogram Findings: The breasts are [...] ALCARAZ M.D. on Aug 06 2014 1:53P [id number] Procedure Note Provider, MD Reyes - 08/04/2016 LIANNE ALCARAZ M.D. FINAL REPORT ACC# Date Time Exam [id number] Jul 17, 2014 08:41:00 [facility] [address] Screening Mamm Bilat Technologist(s): Eliza Fischer; ; EXAMINATION: ADDENDUM 08/06/2014 01:53PM ADDENDUM: 08/06/2014 The present examination has been compared to prior imaging studies performed at [facility]. [facility]3] on 02/15/2013, 01/05/2012 and 04/15/2006. Focal asymmetry in the right breast requires additional evaluation. Additional views are recommended. OVERALL FINAL ASSESSMENT: BI-RADS CATEGORY 0: Incomplete: Need additional imaging evaluation. END OF ADDENDUM Mammogram Technique: Bilateral Full-Field Digital Screening Mammogram was performed. Views obtained: bilateral craniocaudal and bilateral mediolateral oblique. Computer Aided Detection was performed with DanceTrippin.3 version 9.3. Mammogram Findings: The breasts are [...] ALCARAZ M.D. on Aug 06 2014 1:53P [id number] Historical Provider MD MORENO MAMMO PROCEDURES Cleopatra l Result from Last 3 Months or Most Recently Relevant to Health Maintenance Insurance [facility] MEDICARE ADVANTAGE IDPA IDPA Advance Directives For more information, please contact: [phone] Documents on File Type Date Recorded Patient Assistant Store Manager Expl anation Advance Directives and Livin g Will 09/27/2022 5:52 AM * Full Code (Latest Code Status on File) Date Activated Date Inactivated Comments 09/27/2022 11:52 AM 09/28/2022 8:13 PM Care Teams Hvac Technician Residential Relationship Specialty Start Date End Date Franck Cook NP [address] [facility] [address] [facility] 1 [place] [address] PCP - General Nurse Practitioner 09/15/23 [place] [address] [address] Consulting Physician Cardiology 02/01/23
--- OUTSIDE RECORDS SUMMARY | 2024-07-05 12:58 | XMS_ITS | Referral Summary ---
Author Organization [facility] Address [facility] [place] [address] Care Team Providers Care Methods Engineer Name Role Phone Gonzalo Gamboa MD Unavailable Franck Cook NP Primary Care Provider + [phone] Encounters Date Type Department Care Team Description 07/01/2024 Orders Only [facility] Pulmonary at [address] [place] [address] Dori Simmons LPN Chronic respiratory failure with hypoxia (HCC) (Primary Dx) from Last 3 Months Allergies Active Allergy Reactions Criticality Noted Date [...] mouth daily Four 20mg tablets daily Active fuywuxan-ieti-RI -calcium-mins 18 mg iron-400 mcg-500 mg Ca [...] lung 11/17/2020 Chest pain, unspecified 11/03/2020 08/18/19 23 Disorder of arteries and arterioles, unspecified 11/03/2020 [...] (adult) (pediatric) 10/1508/17/2022 Tobacco dependence syndrome 11/02/2020 05/0 06/2022 Abscess of breast 02/27/2014 Resolved Problems Problem [...] un specified carotid artery 05/26/2022 08/31/2023 Immunizations Immunization Administration Dates Next Due Influenza, [...] often do you attend chur ch or faith services? Never 09/28/2022 Do you belong to any clubs o r organizations such as episcopalian groups, unions, fraternal or athletic groups, or [...] place to sleep or slept in a snf (including now)? No 09/28/2022 Personal Safety Answer Date Recorded Have you ever been in or are you currently in a harmful physical or emotional relationship or is someone making you feel afraid or unsafe? Denies 09/27/2022 Comments Unknown Sex and Gender Information Value Date Recorded Sex Assigned at Not on file Legal Sex Female 5:22 AM CARTOON DESIGNER Gender Identity Female 10/12/2022 10:18 AM CDT [...] kg (265 lb) 02/26/2024 1:0 2 PM CARTOON DESIGNER Height 154.9 cm (5' 1 ) 02/26/2024 1:02 PM CARTOON DESIGNER Body Mass Index 50.07 02/26/2024 1:02 PM CARTOON DESIGNER Plan of Treatment Not on file Medical Devices Implanted Type Area Wine Blender Device Identifier Shelf Expiration Date Model / Serial / Lot [facility] Enroute Uber Flex 8mm .065in 40mm 57cm Delivery System Angle Tip Sr-0840-Cs - [id number] Implanted:Qty: 1 on 09/27/2022 by Brando Pearson MD at [facility] 12/15/2024 SR-0840-CS / / [id number] Procedures Procedure Name Priority Date/Time Associated Diagnosis Comments CT LUNG CANCER SCREENING Schedule Routine, Read Routine (OP Routine) 02/26/2024 12:57 PM CARTOON DESIGNER Nicotine dependence, cigarettes, in remission EGFR Routine 09/13/2022 10:54 AM CDT Carotid stenosis, right SCREENING MAMMOGRAM Routine 07/17/2014 8:41 AM CDT from Last 3 Months or Most Recently Relevant to Health Maintenance Results * CT Lung Cancer Screening (02/26/2024 12:57 PM CARTOON DESIGNER) Anatomical Region Laterality Modality Chest N/A Computed Tomogra phy 02/29/2024 6:23 AM CARTOON DESIGNER Narrative 02/29/2024 6:33 AM CARTOON DESIGNER EXAM DESCRIPTION: CT LUNG CANCER SCREENING REASON [...] Austin Valle M.D. BRONSON T: Report ID: [id number] Reading Location: [place] [address] Tim Escobar MD IMG CT PROCEDURES Final [...] LAB BLOOD ORDERABLES Final Resul t JUANJO ZACK [address] [facility] Department [place] [address] * Screening Mammogram (07/17/2014 8:41 AM CDT) Anatomical Region Laterality Modality Breast N/A Mammography 07/17/2014 8:41 AM CDT Narrative 08/06/2014 1:53 PM CDT LIANNE ALCARAZ M.D. FINAL REPORT ACC# Date Time Exam [id number] Jul 17, 2014 08:41:00 [facility] [address] Screening Mamm Bilat Technologist(s): Eliza Fischer; ; EXAMINATION: ADDENDUM 08/06/2014 01:53PM ADDENDUM: 08/06/2014 The present examination has been compared to prior imaging studies performed at [facility] on 02/15/2013, 01/05/2012 and 04/15/2006. Focal asymmetry in the right breast requires additional evaluation. Additional views are recommended. OVERALL FINAL ASSESSMENT: BI-RADS CATEGORY 0: Incomplete: Need additional imaging evaluation. END OF ADDENDUM Mammogram Technique: Bilateral Full-Field Digital Screening Mammogram was performed. Views obtained: bilateral craniocaudal and bilateral mediolateral oblique. Computer Aided Detection was performed with [employer].3 version 9.3. Mammogram Findings: The breasts are [...] ALCARAZ M.D. on Aug 06 2014 1:53P [id number] Procedure Note Provider, MD Reyes - 08/04/2016 LIANNE ALCARAZ M.D. FINAL REPORT ACC# Date Time Exam [id number] Jul 17, 2014 08:41:00 [facility] [address] Screening Mamm Bilat Technologist(s): Eliza Fischer; ; EXAMINATION: ADDENDUM 08/06/2014 01:53PM ADDENDUM: 08/06/2014 The present examination has been compared to prior imaging studies performed at [facility] on 02/15/2013, 01/05/2012 and 04/15/2006. Focal asymmetry in the right breast requires additional evaluation. Additional views are recommended. OVERALL FINAL ASSESSMENT: BI-RADS CATEGORY 0: Incomplete: Need additional imaging evaluation. END OF ADDENDUM Mammogram Technique: Bilateral Full-Field Digital Screening Mammogram was performed. Views obtained: bilateral craniocaudal and bilateral mediolateral oblique. Computer Aided Detection was performed with Igloo Vision3 version 9.3. Mammogram Findings: The breasts are [...] ALCARAZ M.D. 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
--- OUTSIDE RECORDS SUMMARY | 2024-07-05 12:58 | XMS_ITS | Data Portability ---
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 Plan of Treatment Reminders Order Date Submit Date Provider Last Modified By Organization Details Last Modified Time Details Appointments None recorded. Lab None recorded. Referral None recorded. Procedures None recorded. Surgeries None recorded. Imaging CT, chest, w/o contrast - DUE 11/2022 023 [facility], [address] [place], [address], 3 09:34:25 CT, chest, w/o contrast - DUE 11/2022 023 [email or web address] 25 [facility], [address] [place] [address] Route [facility], [place], [address], 3 09:48:32 Medication Orders None recorded. Patient TargetsNo targets recorded. Patient InstructionsNo instructions recorded. Reason for Referral None Reported. Results Created Date Observation Date Name Description Value Unit Range Abnormal Flag Note LastModifiedBy Organization Detail LastModifiedTime 11/20/19 22 11/15/2021 compl ete PFT w/ post [facility] hodil ator robbie metry * No observ ation record ed. [id number] [facility] (Cardiology & Emg) [address] [place] [address] [address], [place], [address], 06/15/2022 18:41:32 11/27/19 22 11/26/2021 CT, chest , w/ contr ast No observ ation record ed. [id number] [facility] [address], [place], [address], 06/15/2022 18:41:32 12/03/19 22 11/26/2021 CT, chest , w/ contr ast No observ ation record ed. [id number] [facility] [address], [place], [address], 06/15/2022 18:41:32 12/13/19 23 12/12/2022 cardi ac stres s test No observ ation record ed. [email or web address] [facility] [address], [place], [address], 12/23/2022 15:12:03 02/07/20 23 02/01/2023 CT, chest , w/o contr ast No observ ation record ed. [email or web address] [facility] Central Scheduling [address] [place], [address], 02/15/2023 21:42:47 Result Notes None recorded. Problems Name Problem SNOMED Code Status Onset Date Resolution Date Notes Provider Name and Address Organization Details Recorded Time Extreme obesity with alveolar hypoventil ation 073381668 Active 2020 Not Available [employer] 3 18:39:03 Asthma 744237196 Active 2020 Not Available [employer] 3 18:39:03 Morbid obesity 396927787 Active 2021 Not Available [employer] 3 18:39:04 Feeling of lump in throat 620672674 Active 2021 Not Available [employer] 3 18:39:04 Chest pain 19743632 Active 2021 Not Available [facility] 3 18:39:04 Decreased diffusion capacity of lung 15610220 Active 2020 Not Available [facility] 3 18:39:04 Multiple nodules of lung 606090224 Active 2020 Not Available [facility] 3 18:39:04 Cough 71804595 Active 2020 Not Available [facility] 3 18:39:04 Dyspnea on exertion 34313914 Active 2020 Not Available [facility] 3 18:39:04 Obstructiv e sleep apnea syndrome 87144972 Active 2020 Not Available [facility] 3 18:39:04 Disability evaluation procedure Active 2021 Not Available [facility] 3 18:39:05 Secondary pulmonary hypertensi on 51493566 Active 2021 Not Available [facility] 3 18:39:05 Dependence on supplement al oxygen 668408718088 Active 2020 Not Available [facility] 3 18:39:05 Physical deconditio khang 5893147829699 2 Active 2022 Amanda Valentine, SCALDER-BC [address] [facility], [facility] [address], [place], [address] , [facility] [employer] [facility] 3 10:00:06 Problem Notes None recorded. Procedures Surgical History Date Name Laterality Status Provider Name and Address Organization Details Recorded Time other completed Not Available [facility] 04/2022 18:37:47 Imaging Results Imaging Date Name Status LastModified by Organization Details LastModified Time 11/15/2021 complete PFT w/ post bronchodilator spirometry* completed [id number] [facility] (Cardiology & Emg) [address] [place] [address] [address], [place], [address], 06/15/2022 18:41:32 11/26/2021 CT, chest, w/ contrast completed [id number] [facility] [address] [place] [address] [address], [place], [address], 06/15/2022 18:41:32 11/26/2021 CT, chest, w/ contrast completed [id number] [address] [place] [address] Imaging [facility] [address], [place], [address], 06/15/2022 18:41:32 12/12/2022 cardiac stress test completed [id number] [facility] [address], [place], [address], 12/23/2022 15:12:03 02/01/2023 CT, chest, w/o contrast completed [address] Central Scheduling [address] [place], [address], 02/15/2023 21:42:47 Procedure Notes None recorded. Medical Equipment None Reported. Allergies Allergen ID Allergen Name Allergen Category Reaction Reaction Severity Criticality Documentation Date Start Date Code Code System Note Provider Name and Address Organization Details Recorded Time 33007 niacin medicatio n rash Not available Not available 06/15/2022 7393 RxNorm Not Available [facility] 18:41:28 75293 codeine medicatio n rash Not available Not available 06/15/2022 2670 RxNorm Not Available [facility] 18:41:29 Medications Name Sig Start [...] Date Recorded Body mass index (BMI) Body height Oxygen saturation Oxygen saturation in Arterial blood by Pulse oximetry Heart rate Body temperature Body weight Systolic blood pressure Diastolic blood pressure Provider Name and Address Organization Details Last Updated DateTime 2 55.1 kg/m2 154.94 cm 98 % 98 % 76 /min 97.2 [degF] 532869. 82 g 138 mm[Hg] 72 mm[Hg] Not Available [facility] 3 18:38:43 Date Recorded Body mass index (BMI) Body height Oxygen saturation Oxygen saturation in Arterial blood by Pulse oximetry Heart rate Body temperature Body weight Systolic blood pressure Diastolic blood pressure Provider Name and Address Organization Details Last Updated DateTime 3 55.9 kg/m2 154.94 cm 91 % 91 % 76 /min 96.4 [degF] 441094. 34 g 120 mm[Hg] 74 mm[Hg] Not Available [facility] 3 18:38:43 Date Recorded Body height Body mass index (BMI) Body weight Heart rate Oxygen saturation Oxygen saturation in Arterial blood by Pulse oximetry Inhaled oxygen flow rate Systolic blood pressure Diastolic blood pressure Provider Name and Address Organization Details Last Updated DateTime 3 154.94 cm 53.8 kg/m2 456064. 83 g 77 /min 94 % 94 % 2 L/min 158 mm[Hg] 54 mm[Hg] Tracey TAFOYA [place] [employer] [facility] 3 14:40:14 Date Recorded Body height Body weight Body temperature Heart rate Oxygen saturation Oxygen saturation in Arterial blood by Pulse oximetry Inhaled oxygen flow rate Systolic blood pressure Diastolic blood pressure Provider Name and Address Organization Details Last Updated DateTime 3 154.94 cm 515132. 86 g 97.2 [degF] 101 /min 93 % 93 % 2 L/min 130 mm[Hg] 70 mm[Hg] Jessica Gutierrez RN [facility] [employer] 3 14:30:56 Date Recorded Body height Body mass index (BMI) Body weight Heart rate Oxygen saturation Oxygen saturation in Arterial blood by Pulse oximetry Inhaled oxygen flow rate Systolic blood pressure Diastolic blood pressure Provider Name and Address Organization Details Last Updated DateTime 3 154.94 cm 51.4 kg/m2 474104. 12 g 76 /min 92 % 92 % 2 L/min 132 mm[Hg] 68 mm[Hg] Dionne Rao MA [place] [facility] [employer] 3 10:25:02 Social History Question Answer Notes LastModified by Organizat ion Details LastModified Time Tobacco Smoking Status Former Smoker Not Available [facility] 06/15/2022 18:37:41 Do You Have An Advance Directive? No MIGRATION.93775 88589 Information not available 06/15/2022 What Is Your Level Of Alcohol Consumption? Occasional MIGRATION.29600 94409 Information not available 06/15/2022 Are You Blind Or Do You Have Difficulty Seeing? No MIGRATION.00986 52849 Information not available 06/15/2022 What Is Your Level Of Caffeine Consumption? Heavy MIGRATION.05052 17027 Information not available 06/15/2022 In The 14 Days Before Symptom Onset, Have You Had Close Contact With A Laboratory-confir med COVID-19 While That Case Was Ill? No MIGRATION.80712 01611 Information not available 06/15/2022 In The 14 Days Before Symptom Onset, Have You Had Close Contact With A Person Who Is Under Investigation For COVID-19 While That Person Was Ill? No MIGRATION.75197 74594 Information not available 06/15/2022 Are You Deaf Or Do You Have Serious Difficulty Hearing? No MIGRATION.54711 04726 Information not available 06/15/2022 What Type Of Diet Are You Following? REGULAR MIGRATION.84156 30795 Information not available 06/15/2022 What Is The Highest Grade Or Level Of School You Have Completed Or The Highest Degree You Have Received? LE10113-0 Some College MIGRATION.77983 75651 Information not available 06/15/2022 Do You Have An Electrostatic Air Filter? No MIGRATION.00595 00305 Information not available 06/15/2022 When Did You Quit Smoking? 1-5yearssince lastcigarette August 14, 2020 MIGRATION.03454 92648 Information not available 06/15/2022 Do You Have A Humidifier? No MIGRATION.91216 82936 Information not available 06/15/2022 Do You Have A Medical Power Of Senior Master Scheduler? No MIGRATION.34239 01168 Information not available 06/15/2022 Do You Have Moisture Problems In Your Home? No MIGRATION.87509 29094 Information not available 06/15/2022 What Was The Date Of Your Most Recent Tobacco Screening? 12/29/2020 MIGRATION.79828 38085 Information not available 06/15/2022 Have You Ever Been Counseled For Unhealthy Alcohol Use? No MIGRATION.61535 17971 Information not available 06/15/2022 Do You Have Any Pets? No MIGRATION.65295 07723 Information not available 06/15/2022 What Is Your Relationship Status? MIGRATION.31782 04550 Information not available 06/15/2022 Do You Use Your Seat Belt Or Car Seat Routinely? Yes MIGRATION.00213 52954 Information not available 06/15/2022 Do You Have Smoke And Carbon Monoxide Detectors In Your Home? Yes MIGRATION.47275 35209 Information not available 06/15/2022 At What Age Did You Start Smoking Tobacco? 25 MIGRATION.41678 94238 Information not available 06/15/2022 Are You Passively Exposed To Smoke? No MIGRATION.15542 53715 Information not available 06/15/2022 Do You Use Any Illicit Or Recreational Drugs? No MIGRATION.56140 17686 Information not available 06/15/2022 Do You Use Sunscreen Routinely? No MIGRATION.15297 25349 Information not available 06/15/2022 Has Tobacco Cessation Counseling Been Provided? No MIGRATION.27624 08452 Information not available 06/15/2022 How Many Years Have You Smoked Tobacco? 40 MIGRATION.10541 48693 Information not available 06/15/2022 Have You Recently Traveled Abroad? No MIGRATION.24398 75790 Information not available 06/15/2022 Do You Have Any Dietary Restrictions? No MIGRATION.88169 71039 Information not available 06/15/2022 Do You Or Have You Ever Used Any Other Forms Of Tobacco Or Nicotine? No MIGRATION.54734 04941 Information not available 06/15/2022 Sex: Unknown Functional Status Question Answer Note LastModified by Organizat [employer] Details LastModified Time Do you have difficulty walking or climbing stairs? No MIGRATION.1786449 026 Information not available 06/15/2022 Do you have transportation difficulties? No MIGRATION.9897722 026 Information not available 06/15/2022 Are you able to walk? YESWOREST MIGRATION.8528718 026 Information not available 06/15/2022 Do you have difficulty doing errands alone? No MIGRATION.0451081 026 Information not available 06/15/2022 Are you able to care for yourself? Yes MIGRATION.7295943 026 Information not available 06/15/2022 Do you have difficulty dressing or bathing? No MIGRATION.1781347 026 Information not available 06/15/2022 What is your exercise level? None MIGRATION.5745578 026 Information not available 06/15/2022 Mental Status Question Answer Note LastModified by Organizat ion Details LastModified Time Do you have difficulty concentrating, remembering or making decisions? No MIGRATION.182552120 6 Information not available 06/15/2022 Family History Relationship Description Onset Age of this Age Resolved Age Notes LastModified by Organization Details LastModified Time Father Disorder of lung MIGRATION.263 [id number] Not available 06/15/2022 18:37:48 Mother Disorder of lung MIGRATION.157 8881573 Not available 06/15/2022 18:37:48 Sister Disorder of lung MIGRATION.868 8565456 Not available 06/15/2022 18:37:48 Medical History No medical history recorded. Gynecological HistoryNo gynecological history recorded. Obstetrics History GPAL:G 0 P 0 0 0 0 Immunizations Vaccine Type Date Status Note Provider Nam e and Address Organization Details Recorded Time influenza, unspecified formulation 0 completed Not Available [facility] 06/15/2022 18:41:26 Past Encounters Encounter ID Performer Location Encounter Start Date Encounter Closed Date Diagnosis/Indication Diagnosis SNOMED-CT Code Diagnosis ICD10 Code Diagnosis Note [id number] [facility] [place] [address] [place] [address] 11/17/2020 00:00:00 11/17/2020 14:10:51 [id number] [facility] [place] [address] [place] [address] 12/29/2020 00:00:00 12/29/2020 13:16:22 [id number] [facility] [place] [address] [place] [address] 03/01/2021 00:00:00 03/01/2021 14:20:12 [id number] [facility] [place] [address] [place] [address] 04/28/2021 00:00:00 04/28/2021 13:41:04 [id number] [facility] [place] [address] [place] [address] 05/27/2021 00:00:00 05/27/2021 20:33:39 [id number] [facility] [place] [address] [place] [address] 11/22/2021 00:00:00 11/22/2021 16:54:00 [id number] [facility] [place] [address] [place] [address] 12/07/2021 00:00:00 12/07/2021 15:54:23 [id number] [facility] [place] [address] [place] [address] 05/24/2022 00:00:00 05/24/2022 16:36:18 [id number] Amanda Valentine, SCALDER- [facility] [place] [address] [place] [address] 09/14/2022 14:19:08 09/14/2022 14:59:42 Secondary pulmonary hypertension 28254427 I27.21 Cardiac catheteriz ation through [facility] with [...] challenge negative Multiple n odules of lung 045653746 R91.[address] chest 07/13/20, repeat 11/26/21 stable with all nodules to BUL less than 2mmHistopl asma, blastomyce s negative.L egionella, cocciciode s, KINJAL and SEYMOUR normalRepe at CT in one year, due 11/2022 Extreme ob esity with alveolar hypoventilation 176382949 E66.2 Continue BIPAP.Down load on with 100% [...] at least 4 hours prior to bedtime. [id number] Amanda Valentine, SCALDER-[facility] [place] [address] [place] [address] 01/13/2023 14:24:33 01/13/2023 15:04:28 Secondary pulmonary hypertension 55910642 I27.21 Cardiac catheteriz ation through [facility] with [...] 11/2020 negative Multiple n odules of lung 825664048 R91.[address] chest 07/13/20, repeat 11/26/21 stable with all nodules to BUL less than 2mmHistopl asma, blastomyce s negative.L egionella, cocciciode s, KINJAL and SEYMOUR normalRepe at CT in one year, due 11/2022 - ordered today Extreme ob esity with alveolar hypoventilation 512960244 E66.2 Continue BIPAP.Down load on with 100% [...] one year, PRN for concerns Physical deconditioning 3424068817 9102 R68.89 Contributo r to dyspnea Dependence on supplemental oxygen 3130978693 07 Z99.81 2 liters with activitySh e has good use and clinical benefitLas t six minute walk testing in 2020Needs repeat, plans for this fall with PFT [id number] Amanda Serge, SCALDER-BC [facility] [place] [address] [place] [address] 03/07/2023 10:15:29 03/07/2023 12:16:27 Secondary pulmonary hypertension 84984491 I27.21 Cardiac catheteriz ation through [facility] with [...] vaccines this fall Dependence on supplemental oxygen 5889681904 07 Z99.81 2 liters with activitySh e has good use and clinical benefitLas t six minute walk testing in 2020I recommend repeat testing Multiple n odules of lung 024177568 R91.[address] chest 07/13/20, repeat 11/26/21 stable with all nodules to BUL less than 2mmHistopl asma, blastomyce s negative.L egionella, cocciciode s, KINJAL and SEYMOUR normalRepe at CT 01/2023 with no nodule, mass or adenopathy . Calcified granuloma noted Extreme ob esity with alveolar hypoventilation 788477046 E66.2 Continue BIPAP.Last download on with 100% [...] one year, PRN for concerns Physical deconditioning 3138694414 9102 R68.89 Contributo r to dyspnea Health Concerns Section Related Observation LastModified by Organization Detai ls LastModified Time None Recorded Concern Status LastModified by Organization Details LastModified Time None Recorded Advance Directives Directive N: Payers Encounter Date Sequence Insurance Name Policy Number Policy Wong Covered Member ID Wong Member ID Guarantor Name 09/14/2022 1 [facility] (MEDICARE REPLACEMENT/A DVANTAGE - PPO) [id number] Nadya K Ray [id number] Nadya K Ray 09/14/2022 2 [place] [facility] [place] Nadya K Ray [id number] Nadya K Ray 01/13/2023 1 [facility] (MEDICARE REPLACEMENT/A DVANTAGE - PPO) [id number] Nadya K Ray [id number] Nadya K Ray 01/13/2023 2 [place] [facility] [place] Nadya K Ray [id number] Nadya K Ray 03/07/2023 1 [facility] (MEDICARE REPLACEMENT/A DVANTAGE - PPO) [id number] Nadya K Ray [id number] Nadya K Ray 03/07/2023 2 [place] [facility] [place] Nadya K Ray [id number] Nadya Zarate Notes Date Note Type Note Provider Name and Address Organization Details Recorded Time 3 text/html Ms Zarate presents today to follow up on dyspnea, mild emphysema, OHS, PH.She is having a left carotid endartectomy September 30 for 95% stenosisShe is in cardiopulmonary rehab and can do [...] symptoms.No change in dyspnea without inhaled therapy SANTOSH Lantigua [address] [facility], [address], [place], [address], [employer] 09/14/2022 16:40:44 3 text/html Ms Zarate presents today to follow up on dyspnea, mild emphysema, OHS, PH, recent carotid surgeryAlbina did not have significant improvement in dyspnea after left carotid endartectomy in SeptemberShlex was in cardiopulmonary rehab and could do 17 minutes straight on the recumbent bike prior to thisOne URI in March 2022 with steroids and significant improvementCompliant with oxygen.She has good use and benefit.Denies irving GERD symptoms.No change in dyspnea without inhaled therapyNo cough or wheezing.Does not wake at night R/T respiratory symptomsNightly compliance with PAP, she has restful sleep BEBETO [facility]igua [address] [facility], [address], [place], [address], [employer] [employer] 01/16/2023 10:04:37 3 text/html Ms Zarate presents today to follow up on dyspnea, mild emphysema, OHS, PH, recent carotid surgery, oxygen dependenceShlex did not have significant improvement in dyspnea [...] PAP, she has restful sleep Amanda Valentine, SCALDER-BC [address] [facility], [facility] [address], [place], [address], [facility] 03/07/2023 15:13:02 OBGyn Episode No OBEpisode recorded.
--- OUTSIDE RECORDS SUMMARY | 2024-07-05 12:58 | XMS_ITS | CONTINUITY OF CARE DOCUMENT ---
Author Name jitendra ham Address Unknown Organization [facility] Address [address] [place] [address] Phone [phone] Care Team Providers Care Statistician Mathematical Name Role Phone Cooper GUILLEN, Gonzalo Unavailable Milagro ICT BUSINESS DEVELOPMENT MANAGER, Amanda Unavailable Joey ICT BUSINESS DEVELOPMENT MANAGER, Daren Unavailable PROBLEMS Condition Status Date Provider Notes Hyperlipidemia active Gonzalo Gamboa MD Kidney stones active Gonzalo Gamboa MD Depression active Gonzalo Gamboa MD Essential hypertension--echo ef 55%, 06/2021 active Bart Bolanos JHONY--on BIPAP active Gonzalo Gamboa MD TOBACCO ABUSE Quit 2020 active Gonzalo Gamboa MD Dizziness active Gonzalo Gamboa MD Shortness of breath active Gonzalo Gamboa MD Chest pain-cath diffuse LAD disease, 08/2021 active Bart Bolanos Carotid arterial disease s/p L CEA 2008--CTA Neck 10/2020 65% CARLA, 60% LICA active Gonzalo Gamboa MD Morbid obesity active Gonzalo Gamboa MD FAMILY HISTORY OF HEART DISEASE completed - Gonzalo Gamboa MD Localized swelling on bilate ral legs--venous doppler 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, 02/2021 active Gonzalo Gamboa MD Congestive Heart Failure- wi th preserved ef ,MODERATE PULMONARY HYPERTENSION active Gonzalo Gamboa MD Carotid artery stenosis--s/p CARLA stent, 09/2022 active Bart Bolanos Claudication bilateral active Bart Bolanos ENCOUNTERS Date Type Provider Location Encounter Diag nosis - In-person encounter Office Visit Gonzalo Gamboa MD [facility] - In-person encounter Office Visit Gonzalo Gamboa MD [facility] - In-person encounter Office Visit Gonzalo Gamboa MD [facility] - In-person encounter Office Visit Gonzalo Gamboa MD [facility] - In-person encounter Office Visit Gonzalo Gamboa MD [facility] Carotid artery stenosis--s/p CARLA stent, laudication bilateral - In-person encounter Office Visit Gonzalo Gamboa MD [facility] - In-person encounter Office Visit Gonzalo Gamboa MD [facility] Chest pain-cath diffuse LAD disease, 08/2021 - In-person encounter Office Visit Gonzalo Gamboa MD [facility] JHONY--on BIPAP - In-person encounter Office Visit Gonzalo Gamboa MD [facility] Chest pain-cath diffuse LAD disease, ongestive Heart Failure- with preserved ef ,MODERATE PULMONARY HYPERTENSION - In-person encounter Office Visit Gonzalo Gamboa MD [facility] Essential hypertension--echo ef 55%, 06/2021 - In-person encounter Office Visit Gonzalo Gamboa MD [facility] - In-person encounter Office Visit Gonzalo Gamboa MD [facility] - In-person encounter Office Visit Gonzalo Gamboa MD [facility] Essential hypertension--echo ef 55%, hortness of breathFAMILY HISTORY OF HEART DISEASELocalized swelling on bilateral legs--venous doppler 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, 02/2021 - In-person encounter Office Visit Gonzalo Gamboa MD [facility] Localized swelling o n bilateral legs--venous doppler 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, 02/2021 - In-person encounter Office Visit Gonzalo Gamboa MD [facility] - In-person encounter Office Visit Gonzalo Gamboa MD [facility] Shortness of breathCarotid arterial disease s/p L CEA 2008--CTA Neck 10/2020 65% CARLA, 60% LICA - In-person encounter Office Visit Gonzalo Gamboa MD [facility] JHONY--on BIPAPTOBACCO ABUSE Quit izzinessShortness of breathChest pain-cath diffuse LAD disease, 2Carotid arterial disease s/p L CEA 2008--CTA Neck 10/2020 65% CARLA, 60% LICAMorbid obesity VITAL SIGNS Date Observation Value Provider Body Mass Index (Ratio) 50.25 kg/m2 Lul Gamboa MD pulse rate 69 /min Januaryotilio Rod blood pressure, cuff size large Frank tamara Rod blood pressure, diastolic 68 mm[Hg] tamara Rod blood pressure, systolic 138 mm[Hg] Tab moon Rod oxygen saturation, oximetry 90 % January Rod respiratory rate E&M 12 /min January Ord weight E&M 266 [lb_av] January Rod height E&M 61 [in_i] January Rod Body Mass Index (Ratio) 51.77 kg/m2 Sydnie Quiroz blood pressure, cuff size regular Carrie nila Rod blood pressure, diastolic 58 mm[Hg] Carrie [facility] blood pressure, systolic 158 mm[Hg] Abel [facility] pulse rate 90 /min [facility] Inhaled O2 2 L/min [facility] oxygen saturation, oximetry 92 % [facility] respiratory rate E&M 18 /min Yancy Menard iller weight E&M 274 [lb_av] [facility] height E&M 61 [in_i] [facility] Body Mass Index (Ratio) 51.39 kg/m2 Lul Gamboa MD blood pressure, cuff size large [facility] blood pressure, diastolic 54 mm[Hg] Ja et blood pressure, systolic 166 mm[Hg] Jar ret pulse rate 86 /min Sascha oxygen saturation, oximetry 94 % Sascha Inhaled O2 2 L/min Sascha respiratory rate E&M 16 /min Sascha weight E&M 272 [lb_av] Sascha height E&M 61 [in_i] Sascha y Body Mass Index (Ratio) 52.33 kg/m2 Preeti wilmer Puhse blood pressure, diastolic 56 mm[Hg] Sejal nkLogic blood pressure, systolic 158 mm[Hg] Adrianna kLogyao pulse rate 99 /min Danielle Franco respiratory rate E&M 20 /min Danielle Franco blood pressure, diastolic 56 mm[Hg] Td Franco blood pressure, systolic 158 mm[Hg] She kristy Franco oxygen saturation, oximetry 97 % Danielle Franco weight E&M 277 [lb_av] Danielle Franco blood pressure, cuff size large Sh shane Franco height E&M 61 [in_i] Danielle Franco blood pressure, diastolic 74 mm[Hg] shane Franco blood pressure, systolic 168 mm[Hg] She kristy Franco pulse rate 168 /min Danielle Franco respiratory rate E&M 20 /min Danielle Franco height E&M 61 [in_i] Danielle Franco Inhaled O2 2 L/min Danielle Franco oxygen saturation, oximetry 93 % Danielle Franco blood pressure, cuff size large shane Franco Body Mass Index (Ratio) 54.79 kg/m2 [facility] saloni [facility] blood pressure, diastolic 79 mm[Hg] shane Franco blood pressure, systolic 172 mm[Hg] She kristy Franco blood pressure, cuff size regular shane Franco respiratory rate E&M 20 /min Danielle Franco pulse rate 94 /min Danielle Franco oxygen saturation, oximetry 96 % Danielle Franco weight E&M 290 [lb_av] Danielle Franco height E&M 61 [in_i] Danielle Franco Body Mass Index (Ratio) 54.41 kg/m2 [facility] saloni Joni blood pressure, diastolic 77 mm[Hg] [facility] mad[facility] Nicholas blood pressure, systolic 176 mm[Hg] Fabian Nicholas oxygen saturation, oximetry 87 % Saundra Nicholas pulse rate 109 /min Saundra Nicholas weight E&M 288 [lb_av] Saundra Nicholas Inhaled O2 2 L/min Saundra Nicholas respiratory rate E&M 16 /min Saundra phelan height E&M 61 [in_i] Saundra Nicholas Body Mass Index (Ratio) 55.36 kg/m2 Bart Bolanos blood pressure, diastolic 56 mm[Hg] Sejal nkLogic blood pressure, systolic 148 mm[Hg] Adrianna kLogic Inhaled O2 2 L/min Dionne Gallardo blood pressure, diastolic 56 mm[Hg] Sa ra Gallardo blood pressure, systolic 148 mm[Hg] Usha a Gallardo respiratory rate E&M 19 /min Dionne Si ms oxygen saturation, oximetry 94 % Dionne Gallardo pulse rate 88 /min Dionne Gallardo weight E&M 293 [lb_av] Dionne Gallardo blood pressure, cuff size regular Sa ra Gallardo height E&M 61 [in_i] [facility] (Ratio) 55.73 kg/m2 Lul Gamboa MD blood pressure, diastolic 78 mm[Hg] Apoorva Amandaosmin Cook blood pressure, systolic 177 mm[Hg] Vaibhav [facility] respiratory rate E&M 18 /min Phoebe [facility] pulse rate 81 /min Katie coughlin oxygen saturation, oximetry 97 % Katie [facility] Inhaled O2 2 L/min Katie coughlin weight E&M 295 [lb_av] Katie coughlin blood pressure, cuff size regular Apoorva [facility] height E&M 61 [in_i] Katie coughlin Body Mass Index (Ratio) 56.30 kg/m2 Lul Gamboa MD blood pressure, cuff size large Hanane vega Ram blood pressure, diastolic 80 mm[Hg] Mi silvia [place] blood pressure, systolic 136 mm[Hg] Kye hellynne Ram respiratory rate E&M 18 /min Lisa burnett [place] pulse rate 107 /min Nory Quick [place] oxygen saturation, oximetry 94 % Nory Ram Inhaled O2 2 L/min Nory Quick [place] weight E&M 298 [lb_av] Nory Quick [place] height E&M 61 [in_i] Nory Quick [place] Body Mass Index (Ratio) 56.87 kg/m2 Lul Gamboa MD oxygen saturation, oximetry 90 % Megan Chepe respiratory rate E&M 16 /min Catheri ne Chepe pulse rate 95 /min Megan Chepe Inhaled O2 2 L/min Megan Chepe weight E&M 301 [lb_av] Megan Chepe blood pressure, cuff size regular Ca therine Goodyear height E&M 61 [in_i] Megan Goodyear Body Mass Index (Ratio) 54.03 kg/m2 Lul Gamboa MD blood pressure, cuff size regular Pa ris Antonio blood pressure, diastolic 78 mm[Hg] Pa ris Antonio blood pressure, systolic 192 mm[Hg] Par is Antonio oxygen saturation, oximetry 92 % Shruti [place] respiratory rate E&M 18 /min Shruti H heriberto pulse rate 108 /min Shruti [place] weight E&M 286 [lb_av] Shruti [place] height E&M 61 [in_i] Shruti [place] Body Mass Index (Ratio) 55.73 kg/m2 Lul Gamboa MD blood pressure, cuff size large Ca therine Chepe blood pressure, diastolic 89 mm[Hg] Ca therine [place]year blood pressure, systolic 130 mm[Hg] Cat herine [place] weight E&M 295 [lb_av] Megan Goodyear oxygen saturation, oximetry 90 % Megan Chepe respiratory rate E&M 14 /min Catheri ne Chepe pulse rate 89 /min Megan Chepe height E&M 61 [in_i] Megan Goodyear Body Mass Index (Ratio) 52.14 kg/m2 Lul Gamboa MD blood pressure, cuff size large Ke rri Gruenenfelder blood pressure, diastolic 70 mm[Hg] Ke rri Gruenenfelder blood pressure, systolic 102 mm[Hg] Nilton ri Vishnfelder oxygen saturation, oximetry 91 % Shadia Grryanner respiratory rate E&M 16 /min Shadia G ruenenfelder pulse rate 89 /min Shadia Grmerrillnenfe lder weight E&M 276 [lb_av] Shadia Gruenenfe lder height E&M 61 [in_i] Shadia Gruenenfe lder Body Mass Index (Ratio) 52.52 kg/m2 Lul Gamboa MD blood pressure, diastolic 70 mm[Hg] Li nkLogic blood pressure, systolic 122 mm[Hg] Adrianna kLogic oxygen saturation, oximetry 94 % Chastity Marlene blood pressure, diastolic 70 mm[Hg] Ch astity Marlene blood pressure, systolic 122 mm[Hg] Evtete stity Marlene pulse rate 89 /min Chastity Marlene respiratory rate E&M 16 /min Chastit y Marlene weight E&M 278 [lb_av] Chastity Marlene height E&M 61 [in_i] Chastity Marlene ALLERGIES Allergy Name Onset Date Reaction Criticality Status NIACIN High Criticality active INOSITL High Criticality active DOXYCYCLINE High Criticality active CODEINE High Criticality active CEFACLOR High Criticality active TETRACYCLINE High Criticality active CEPHALOSPORINS High Criticality acti ve HISTORY OF MEDICATION USE Medication Status Instructions Dates Provider Indications Com ments atorvastatin 80 mg tablet active Take 1 tablet by mouth once daily Fanny Lama torsemide 20 mg tablet active TAKE 3 TABLETS BY MOUTH ONCE DAILY Ryan Mckenna clopidogrel 75 mg tablet completed TAKE 1 TABLET BY MOUTH ONCE DAILY - January Rod turmeric-turmeri c root extract 450-50 mg capsule completed - Bart Bolanos diltiazem HCl (Cardizem CD) 360 mg capsule,extended release 24hr active Take 1 capsule by mouth once daily Shadia Benedict Jardiance 25 mg tablet active Take 1 tablet by mouth once daily Ryan Mckenna diltiazem HCl 240 mg capsule,extended release 24hr completed Take 1 capsule by mouth once daily - Bart Bolanos torsemide 20 mg tablet completed TAKE 3 TABLETS BY MOUTH ONCE DAILY - [facility] hydralazine 25 mg tablet completed Take 1 tablet by mouth twice a day - Bart Bolanos Ozempic 0.25 mg or 0.5 mg(2 mg/1.5 mL) pen injector completed Inject 1/4 mg subcutaneously once a week Take 0.25mg once a week x4 weeks then increase to 0.5mg weekly - Bart Bolanos diltiazem HCl 240 mg capsule,extended release 24hr completed TAKE 1 CAPSULE BY MOUTH EVERY DAY - Sascha [facility] Jardiance 25 mg tablet completed Take 1 tablet by mouth once a day - Sascha spironolactone 50 mg tablet active Take 1 tablet by mouth once daily Sima Magdaleno torsemide 20 mg tablet completed Take 4 tablet by mouth once a day Take 4 tablets (80mg) once daily - Danielle Franco Soaanz 40 mg tablet completed Take 2 tablet by mouth once a day = 80mg daily - Aguila Redd RN torsemide 40 mg tablet completed Take 2 tablet by mouth once a day TAKE 2 TWO TABLETS ONCE DAILY - Bart Bolanos spironolactone 50 mg tablet completed Take 1 tablet by mouth once a day - Bart Bolanos Ozempic 0.25 mg or 0.5 mg(2 mg/1.5 mL) pen injector completed Inject 1/4 mg subcutaneously once a week Take 0.25mg once a week x4 weeks then increase to 0.5mg weekly - Bart Bolanos torsemide 20 mg tablet completed Take 1 tablet by mouth once a day - Shadia Benedict aspirin 81 mg tablet,delayed release (DR/EC) active Take 1 tablet by mouth once a day Bart Bolanos losartan-hydroch lorothiazide 100-25 mg tablet completed - Bart Bolanos famotidine 40 mg tablet active TAKE 1 TABLET BY MOUTH AT BEDTIME Ryan Mckenna diltiazem HCl 120 mg capsule,extended release 24hr completed TAKE 1 CAPSULE BY MOUTH EVERY DAY - Bart Bolanos albuterol sulfate HFA aerosol inhaler active as needed Adri Rosario nystatin powder active as needed Adri Rosario Zetia 10 mg tablet active Take 1 tablet by mouth once a day Ryan Mckenna Xanax 0.25 mg tablet active Take 1 tablet by mouth twice a day Adri Rosario metolazone 2.5 mg tablet completed Take 1 tablet by mouth once a day - Adri Rosario silver sulfadiazine cream active Apply as directed Adri Rosario atorvastatin 80 mg tablet active Take 1 tablet by mouth once a day Gonzalo Gamboa MD amlodipine 5 mg tablet completed Take 1 tablet by mouth once a day - Evettestlibia Rosario nabumetone 750 mg tablet active Take as needed Evettestlibia Rosario fluoxetine 40 mg capsule active Take 1 capsule by mouth once a day Ryan Mckenna SOCIAL HISTORY Date Observation Value Provider smoking, year quit 2020 Bart ortiz number of years as a smoker 40 a Bart Bolanos smoking history, tot al pack/day 1 ppd Bart Bolanos cigarette use yes Bart Bolanos smoking status Former smoker Bart Costa i smoking, year quit 2020 Bart ortiz number of years as a smoker 40 a Bart Bolanos smoking history, tot al pack/day 1 ppd Bart Bolanos cigarette use yes Bart Bolanos smoking status Former smoker Bart Costa i social history reviewed E&M revi ewed - no changes required Bart Bolanos smoking, year quit 2020 Danielle posadas cigarette use yes Danielle Franco smoking status Former smoker Danielle garcia social history reviewed E&M revi ewed - no changes required Bart Costachip social history E&M S moking History: Hina dominguez is a former smoker. Bart Costachip cigarette use yes Danielle Franco smoking status Former smoker Danielle garcia social history reviewed E&M revi ewed - no changes required Bart Costachip social history E&M S moking History: Hina dominguez has never smoked. Bart Costachip smoking status Never smoker Danielle Franco social history reviewed E&M revi ewed - no changes required Bart Bolanos social history E&M S moking History: Hina dominguez is a former smoker. Bart Bolanos smoking, year quit 2020 Saundra Henson is number of years as a smoker 40 a Saundra Nicholas smoking history, tot al pack/day 1 ppd Saundra Nicholas cigarette use yes Saundra Nicholas smoking status Former smoker Saundra Nicholas social history reviewed E&M revi ewed - no changes required Bart Bolanos social history reviewed E&M revi ewed - no changes required Bart Bolanos social history reviewed E&M revi ewed - no changes required Bart Bolanos smoking, year quit 2020 Nory Yo number of years as a smoker 40 a Nory Ram smoking history, tot al pack/day 1 ppd Nory Ram cigarette use yes Nory Goldstein kelly smoking status Former smoker Nory rodriguez social history reviewed E&M revi ewed - no changes required Bart Bolanos smoking, year quit 2020 Megan Goodyear number of years as a smoker 40 a Megan Goodyear smoking history, tot al pack/day 1 ppd Megan Goodyear cigarette use yes Megan Goodyear smoking status Former smoker Megan Ot is social history reviewed E&M revi ewed - no changes required Bart Armentazachip social history reviewed E&M revi ewed - no changes required Bart Armentazachip smoking, year quit 2020 Shruti Her kaley number of years as a smoker 40 a Shruti Antonio smoking history, tot al pack/day 1 ppd Shruti [place] cigarette use yes Shruti [place] smoking status Former smoker Shruti [place] social history reviewed E&M revi ewed - no changes required Bart Bolanos social history E&M S moking History: Hina dominguez is a former smoker. Bart Bolanos smoking, year quit 2020 Megan Goodyear number of years as a smoker 40 a Megan Goodyear smoking history, tot al pack/day 1 ppd Megan Goodyear cigarette use yes Megan Goodyear smoking status Former smoker Megan Ot is social history reviewed E&M revi ewed - no changes required Gonzalo Gamboa MD social history E&M S moking History: Hina dominguez is a former smoker. Bart Bolanos social history reviewed E&M revi ewed - no changes required Bart Bolanos number of years as a smoker 40 a Shadia Candelarioer smoking history, tot al pack/day 1 ppd Shadia Candelarioer smoking, year quit 2020 Shadia Keitamendel ensusanaer cigarette use yes Shadia Wahlnf elder smoking status Former smoker Shadia reeseelder social history E&M S moking History: Hina dominguez is a former smoker. 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 [id number] [employer] Medicaid 3 [id number] ADVANCE DIRECTIVES Name Date DISCUSSED - NO DECISION MADE TREATMENT PLAN Date Name Performer [id number],S, Bart Ahmedza i [id number],S, Bart Ahmedza i [id number],S, Bart Ahmedza i [id number],S, Bart Ahmedza i [id number],S, Bart Ahmedza i [id number],S, Bart Ahmedza i [id number],S, Bart Ahmedza i [id number],S, Bart Ahmedza i [id number],S, Bart Ahmedza i [id number],S, Bart Ahmedza i [id number],S, Bart Ahmedza i [id number],S, Bart Ahmedza i [id number],S, Bart Ahmedza i [id number],S, Bart Ahmedza i [id number],S, Bart Ahmedza i [id number],S, Bart Ahmedza i [id number],S, Bart Ahmedza i [id number],S, Bart Ahmedza i [id number],S, Bart Ahmedza i [id number],S, Bart Ahmedza i [id number],S, Bart Ahmedza i [id number],S, Bart Ahmedza i [id number],S, Bart Ahmedza i [id number],S, Bart Ahmedza i [id number],S, Bart medza i [id number],S, Bart medza i [id number],S, Bart medza i [id number],S, Bart medza i [id number],S, Bart medza i [id number],S, Bart medza i [id number],S, Bart medza i [id number],S, [facility] [id number],S, [facility] [id number],S, [facility] [id number],S, [facility] [id number],S, [facility] [id number],S, [facility] [id number],S, [facility] [id number],S, [facility] [id number],S, [facility] [id number],S, [facility] [id number],S, Bart medza i [id number],S, Bart medza i [id number],S, Brat medza i [id number],S, Bart medza i [id number],S, [facility] [id number],S, [facility] [id number],S, [facility] [id number],S, [facility] [id number],S, [facility] [id number],S, [facility] [id number],S, [facility] [id number],B, [facility] [id number],S, [facility] [id number],S, [facility] [id number],S, [facility] [id number],S, [facility] [id number],S, [facility] [id number],B, [facility] [id number],S, [facility] [id number],B, [facility] [id number],S, [facility] [id number],S, [facility] [id number],S, [facility] [id number],S, [facility] [id number],S, [facility] [id number],S, [facility] [id number],S, [facility] [id number],S, Bart Ahmedza i [id number],S, Bart Ahmedza i [id number],S, Bart Ahmedza i [id number],S, Bart Ahmedza i [id number],S, Bart Ahmedza i [id number],B, Bart Ahmedza i [id number],S, Bart Ahmedza i [id number],S, Bart Ahmedza i [id number],S, Bart Ahmedza i [id number],S, Bart Ahmedza i [id number],S, Bart Ahmedza i [id number],S, Bart Ahmedza i [id number],S, Bart Ahmedza i [id number],B, Gonzalo Gamboa MD [id number],B, Gonzalo Gamboa MD [id number],B, Gonzalo Gamboa MD [id number],S, Gonzalo Gamboa MD [id number],B, Gonzalo Gamboa MD [id number],S, Bart Ahmedza i [id number],S, Bart Ahmedza i [id number],S, Bart Ahmedza i [id number],S, Bart Ahmedza i [id number],S, Bart Ahmedza i [id number],S, Bart Armentaza i [id number],S, Bart Armentaza i [id number],S, Bart Armentaza i [id number],S, Bart Armentaza i [id number],S, Bart Geovanyashlee i [id number],S, Bart Geovanyashlee i [id number],S, Gonzalo Gamboa MD [id number],S, Gonzalo Gamboa MD [id number],W, Gonzalo Gamboa MD [id number],S, Bartduane Costa i [id number],S, Bart Césarcindy i Cardiology:This visi t has been a part of the consistent, comprehensive, and ongoing management of the chronic medical condition(s) listed above for the patient. BP today: 138/68 P rior BP: 158/58 (06/05/2023) Her updated medication list for this problem includes: Torsemide 20 Mg Tablet (Torsemide) ..... Take 3 tablets by mouth once daily Spironolactone 50 Mg Tablet (Spironolactone) ..... Take 1 tablet by mouth once daily Diltiazem Hcl (cardizem Cd) 360 Mg Capsule,extended Release 24hr (Diltiazem hcl (cardizem cd)) ..... Take 1 capsule by mouth once daily Aspirin 81 Mg Tablet,delayed Release (dr/ec) (Aspirin) ..... Take 1 tablet by mouth once a day Gonzalo Gamboa MD Cardiology Bart Bolanos Cardiology Bart Bolanos Cardiology: H er updated medication list for this problem includes: Torsemide 20 Mg Tablet (Torsemide) ..... Take 3 tablets by mouth once daily Spironolactone 50 Mg Tablet (Spironolactone) ..... Take 1 tablet by mouth once daily Diltiazem Hcl (cardizem Cd) 360 Mg Capsule,extended Release 24hr (Diltiazem hcl (cardizem cd)) ..... Take 1 capsule by mouth once daily Aspirin 81 Mg Tablet,delayed Release (dr/ec) (Aspirin) ..... Take 1 tablet by mouth once a day [facility] Cardiology: T he following medications were removed from the medication list: Clopidogrel 75 Mg Tablet (Clopidogrel) ..... Take 1 tablet by mouth once daily Her updated medication list for this problem includes: Diltiazem Hcl (cardizem Cd) 360 Mg Capsule,extended Release 24hr (Diltiazem hcl (cardizem cd)) ..... Take 1 capsule by mouth once daily Aspirin 81 Mg Tablet,delayed Release (dr/ec) (Aspirin) ..... Take 1 tablet by mouth once a day [facility]: O rders: C arotid Duplex Bilateral ([id number]) [facility]: B P today: 138/68 P rior BP: 158/58 (06/05/2023) Her updated medication list for this problem includes: Torsemide 20 Mg Tablet (Torsemide) ..... Take 3 tablets by mouth once daily Spironolactone 50 Mg Tablet (Spironolactone) ..... Take 1 tablet by mouth once daily Diltiazem Hcl (cardizem Cd) 360 Mg Capsule,extended Release 24hr (Diltiazem hcl (cardizem cd)) ..... Take 1 capsule by mouth once daily Aspirin 81 Mg Tablet,delayed Release (dr/ec) (Aspirin) ..... Take 1 tablet by mouth [facility] a day [facility]:The patie nt is using CPAP on a regular basis. The patient has been benefiting from therapy and should continue use. [facility]: H er updated medication list for this problem includes: Diltiazem Hcl 360 Mg Capsule,extended Release 24hr (Diltiazem hcl) ..... Take 1 capsule by mouth once daily Aspirin 81 Mg Tablet,delayed Release (dr/ec) (Aspirin) ..... Take 1 tablet by mouth once a day [facility]: B P today: 158/58 P rior BP: 166/54 (03/06/2023) Her updated medication list for this problem includes: Diltiazem Hcl 360 Mg Capsule,extended Release 24hr (Diltiazem hcl) ..... Take 1 capsule by mouth once daily Torsemide 20 Mg Tablet (Torsemide) ..... Take 3 tablets by mouth once daily Spironolactone 50 Mg Tablet (Spironolactone) ..... Take 1 tablet by mouth once daily Aspirin 81 Mg Tablet,delayed Release (dr/ec) (Aspirin) ..... Take 1 tablet by mouth once a day [facility]: H er updated medication list for this problem includes: Diltiazem Hcl 360 Mg Capsule,extended Release 24hr (Diltiazem hcl) ..... Take 1 capsule by mouth once daily Torsemide 20 Mg Tablet (Torsemide) ..... Take 3 tablets by mouth once daily Spironolactone 50 Mg Tablet (Spironolactone) ..... Take 1 tablet by mouth once daily Aspirin 81 Mg Tablet,delayed Release (dr/ec) (Aspirin) ..... Take 1 tablet by mouth once a day [facility] Gonzalo Gamboa MD Telehealth Gonzalo Gamboa MD Telehealth Gonzalo Gamboa MD Telehealth Gonzalo Gamboa MD Telehealth Gonzalo Gamboa MD Cardiology [facility] Follow up [facility] Follow up [facility] Follow up [facility] Follow up [facility] Follow up [facility] Gonzalo Gamboa MD Cardiology Gonzalo Gamboa MD Cardiology Gonzalo Gamboa MD Cardiology [facility] Date Name Carotid Duplex Bilat eral Complete Echo Stress Regadenoson Arterial Duplex Bi-L ower EX CT Angio, Carotids Carotid Duplex Bilat eral HEMOGLOBIN A1c RPM (remote patient monitoring) Complete Echo PROTHROMBIN TIME WIT H INR LIPID PANEL CBC (INCLUDES DIFF/P LT) BASIC METABOLIC PANE L W/EGFR PROBNP, N TERMINAL Cardiac Cath - L/R- [facility] Venous Doppler Bilat eral LE - Reflux CT Angio, Carotids Complete Echo HISTORY OF PROCEDURES Procedure Date Procedure Name Provider Procedure Notes S tatus Complex e/m visit add on Gonzalo Gamboa MD completed EKG Gonzalo Gamboa MD completed EKG Gonzalo Gamboa MD completed Event Monitor Gonzalo Gamboa MD comple juan EKG Gonzalo Gamboa MD completed
[2024-07-05 13:10] LABS: Hemoglobin 13.3 g/dL (12.0-15.0); Mean Corpuscular HGB Conc 30.9 g/dl (32-36); Mean Corpuscular Hemoglobin 29.1 pg (26-34); Mean Corpuscular Volume 94.1 fl (80-100); Mean Platelet Volume 8.9 fl (7.4-10.4); Platelet Count Result 449 k/mm3 (150-375); Red Blood Count 4.57 M/mm3 (4.2-5.4); Red Cell Distribution Width 15.2 % (11.5-14.5); White Blood Count 14.6 K/mm3 (4.5-10.0)
[2024-07-05 13:26] LABS: Alanine Aminotransferase 31 U/L (6-35); Albumin Level 4.4 g/dL (3.5-5.1); Alkaline Phosphatase 153 U/L (38-126); Anion Gap 11 mmol/L (4-12); Aspartate Amino Transferase 37 U/L (14-36); Bilirubin,Total 0.7 mg/dL (0.2-1.3); Blood Urea Nitrogen 29 mg/dL (7-17); Calcium 9.1 mg/dL (8.4-10.2); Carbon Dioxide 30 mmol/L (22-30); Chloride 97 mmol/L (98-107); Estimated Glomerular Filt Rate 41; Glucose 121 mg/dL (65-110); Potassium 4.3 mmol/L (3.4-5.0); Sodium 138 mmol/L (137-145)
[2024-07-05 14:03] LABS: Iron 117 ug/dL (37-170)
[2024-07-05 14:12] LABS: Percent Iron Saturation 30 % (20-50)
[2024-07-05 14:25] LABS: Vitamin B12 > 1000.0 pg/mL (239-931)
[2024-07-05 16:49] LABS: Folic Acid > 20.0 ng/mL (2.76->20)
== END 2024-07-05 12:04 | disposition home or self-care (01) ==
PROVIDERS: PCP Nurse Practitioner; Referring Provider Nurse Practitioner; Visit Provider Internal Medicine Hematology & Oncology
DX: D50.9 Iron deficiency anemia, unspecified (principal); R79.89 Other specified abnormal findings of blood chemistry; D64.9 Anemia, unspecified
CPT/HCPCS: 36415; 80053; 82607; 82728; 82746; 83540; 83550; 85027

== ENCOUNTER 2024-10-30 08:45 | Outpatient (CLI) | payer MEDICARE, SELFPAY ==
--- OUTSIDE RECORDS SUMMARY | 2024-10-30 08:57 | XMS_ITS | Encounter Summary ---
Author Organization [facility] Address [address] [place] [address] Care Team Providers Care Physical Therapy Professor Name Role Phone Rory Morales DO Primary Care Provider [phone] Encounter Details Date Type Department Care Team (Late st Contact Info) Description 10/29/2024 External Device Data [facility] ABSTRACTION Provider, Abstract NO ADDRESS ON FILE Social History Tobacco Use Types Packs/Day Years Used Date Smoking Tobacco: Former Cigarettes 1 20 0 08/14/2000 - 08/14/2020 Smokeless Tobacco: Never Alcohol Use Standard Drinks/Week Comments Yes 0 (1 standard drink = 0.6 oz pur e alcohol) Socially Comments Unknown Sex and Gender Information Value Date Recorded Sex Assigned at Female 10/22/2023 12:16 PM CDT Legal Sex Female 2:10 PM CDT Gender Identity Female 10/22/2023 12:16 PM CDT Sexual Orientation Straight 10/22/2023 12 :16 PM CDT documented as of this encounter Plan of Treatment Upcoming Encounters Date Type Department Care Team (Late st Contact Info) Description 01/08/2025 2:30 PM CDT Office Visit [facility] Oncology and Hematology - [place] [address] [place] [address] Nico Bolivar MD [address] [place] [address] documented as of this encounter Visit Diagnoses Not on filedocumented in this encounter Care Teams Physical Therapy Professor Relationship Specialty Start Date End Date Rory Morales DO [address] [facility] [address] [place] [id number] PCP - General Internal Medicine 07/08/24 documented as of this encounter
--- OUTSIDE RECORDS SUMMARY | 2024-10-30 08:57 | XMS_ITS | Clinical Summary ---
Author Organization [facility] Emma Bower Address [address] [place] [address] Care Team Providers Care Research Biologist Name Role Phone Rory Morales DO Primary Care Provider [phone] Allergies Active Allergy Reactions Criticality Noted Date [...] Take 81 mg by mouth daily. Active ALPRAZolam (XANAX) 0.25 mg tablet Take 0.25 mg by mouth 3 times daily as needed for Anxiety. Active Active Problems No known active problems Encounters Date Type Department Care Team Description 10/30/2024 External Device Data [facility] ABSTRACTION Provider, Abstract 10/29/2024 External Device Data [facility] ABSTRACTION Provider, Abstract 10/08/2024 External Device Data [facility] ABSTRACTION Provider, Abstract 10/02/2024 External Device Data [facility] ABSTRACTION Provider, Abstract 10/01/2024 External Device Data [facility] ABSTRACTION Provider, Abstract 09/03/2024 External Device Data ST[facility] ABSTRACTION Provider, Abstract [...] Sign Reading Time Taken Comments Blood Pressure 151/72 07/08/2024 1:06 PM CDT Pulse 96 07/08/2024 1:02 PM CDT Temperature 36.1 C (96.9 F) 07/08/2024 1:02 PM CDT Respiratory Rate 18 07/08/2024 1:02 PM CDT Oxygen Saturation 91% 07/08/2024 1:0 2 PM CDT oxygen 2 liters Inhaled Oxygen Concentration - - Weight 123.6 kg (272 lb 6.4 oz) 07/08/2024 1:02 PM CDT Height 154.9 cm (5' 1) 10/03/2023 2:33 PM CDT Body Mass Index 51.47 10/03/2023 2:33 PM CDT Plan of Treatment Upcoming Encounters Date Type Department Care Team (Late st Contact Info) Description 01/08/2025 2:30 PM CDT Office Visit [facility] Oncology and Hematology - [place] [address] [facility] [address] [place] [address] Nico Bolivar MD [address] [facility] [address] [place] [address] Health Maintenance Due Date Last [...] 08/14/19 15, 08/13/2014, 07/17/2014 OSTEOPOROSIS SCREENING 2019 INFLUENZA VACCINE (#1) 2024 3, 03/02/2022, 03/01/2020 Lung Cancer Screening 02/25/2025 02/26/2024 PNEUMOCOCCAL VACCINE 50+ YEARS Completed 02/10/2022 , 03/01/2020 Insurance [facility] DUAL COMPLETE PPO DSNP [facility] [id number] MEDICAID [place] Care Teams Research Biologist Relationship Specialty Start Date End Date Rory Morales DO [address] [facility] [address] [place] [address] PCP - General Internal Medicine 07/08/24
--- OUTSIDE RECORDS SUMMARY | 2024-10-30 08:57 | XMS_ITS | Data Portability ---
Author Organization [facility] [place], Main Office Address [address] [place] [address] Care Team Providers Care Database Development Project Manager Name Role Phone YUDY HAHN Primary Care Provider [phone] Assessment No assessment recorded. Plan of Treatment Reminders Order Date Submit Date Provider Last Modified By Organization Details Last Modified Time Details Appointments None recorded. Lab None recorded. Referral None recorded. Procedures None recorded. Surgeries None recorded. Imaging CT, chest, w/o contrast - DUE 11/2022 023 [facility], [address] [place] [address], [address], 3 09:34:25 CT, chest, w/o contrast - DUE 11/2022 023 [email or web address] 25 [facility], [facility] [address] [place] [address], [address], 3 09:48:32 Medication Orders None recorded. Patient TargetsNo targets recorded. Patient InstructionsNo instructions recorded. Reason for Referral None Reported. Results Created Date Observation Date Name Description Value Unit Range Abnormal Flag Note LastModifiedBy Organization Detail LastModifiedTime 11/20/19 22 11/15/2021 compl ete PFT w/ post [facility] hodil ator robbie metry * No observ ation record ed. [id number] [facility] (Cardiology & Emg) [address] [place] [address] Rte [facility], [place], [address], 06/15/2022 18:41:32 11/27/19 22 11/26/2021 CT, chest , w/ contr ast No observ ation record ed. [id number] [facility] [address], [place], [address], 06/15/2022 18:41:32 12/03/19 22 11/26/2021 CT, chest , w/ contr ast No observ ation record ed. [id number] [facility] [address], [place], [address], 06/15/2022 18:41:32 12/13/19 23 12/12/2022 cardi ac stres s test No observ ation record ed. [email or web address] [facility] [address], [place], [address], 12/23/2022 15:12:03 02/07/20 23 02/01/2023 CT, chest , w/o contr ast No observ ation record ed. [email or web address] [facility] [address] [place], [address], 02/15/2023 21:42:47 Result Notes None recorded. Problems Name Problem SNOMED Code Status Onset Date Resolution Date Notes Provider Name and Address Organization Details Recorded Time Extreme obesity with alveolar hypoventil ation 992470988 Active 2020 Not Available [facility] 3 18:39:03 Asthma 672938774 Active 2020 Not Available [facility] 3 18:39:03 Morbid obesity 515441406 Active 2021 Not Available [facility] 3 18:39:04 Feeling of lump in throat 742342225 Active 2021 Not Available [facility] 3 18:39:04 Chest pain 06499806 Active 2021 Not Available [facility] 3 18:39:04 Decreased diffusion capacity of lung 68871755 Active 2020 Not Available [facility] 3 18:39:04 Multiple nodules of lung 222623108 Active 2020 Not Available [facility] 3 18:39:04 Cough 26208354 Active 2020 Not Available [facility] 3 18:39:04 Dyspnea on exertion 10470857 Active 2020 Not Available [facility] 3 18:39:04 Obstructiv e sleep apnea syndrome 27118159 Active 2020 Not Available [facility] 3 18:39:04 Disability evaluation procedure Active 2021 Not Available [facility] 3 18:39:05 Secondary pulmonary hypertensi on 28466445 Active 2021 Not Available [facility] 3 18:39:05 Dependence on supplement al oxygen 046565957297 Active 2020 Not Available [facility] 3 18:39:05 Physical deconditio khang 9250958893763 2 Active 2022 Amanda Valentine, PRODUCT MARKETING DIRECTOR-BC [address] [facility], [facility] [address], [place], [address] , [facility] [employer] [facility] 3 10:00:06 Problem Notes None recorded. Procedures Surgical History Date Name Laterality Status Provider Name and Address Organization Details Recorded Time other completed Not Available [facility] 04/2022 18:37:47 Imaging Results None recorded. Procedure Notes None recorded. Medical Equipment None Reported. Allergies Allergen ID Allergen Name Allergen Category Reaction Reaction Severity Criticality Documentation Date Start Date Code Code System Note Provider Name and Address Organization Details Recorded Time 08031 niacin medicatio n rash Not available Not available 06/15/2022 7393 RxNorm Not Available [facility] 3 18:41:28 92253 codeine medicatio n rash Not available Not available 06/15/2022 2670 RxNorm Not Available [facility] 3 18:41:29 Medications Name Sig Start Date Stop [...] Heart rate Body temperature Body weight Systolic And Diastolic Provider Name and Address Organization Details Last Updated DateTime 3 55.9 kg/m2 154.94 cm 91 % 91 % 76 /min 96.4 [degF] 956611. 34 g 120/74 mm[Hg] Not Available [facility] 3 18:38:43 Date Recorded Body height Body mass index (BMI) Body weight Heart rate Oxygen saturation Oxygen saturation in Arterial blood by Pulse oximetry Inhaled oxygen flow rate Systolic And Diastolic Provider Name and Address Organization Details Last Updated DateTime 3 154.94 cm 53.8 kg/m2 326436. 83 g 77 /min 94 % 94 % 2 L/min 158/54 mm[Hg] Tracey Ann [facility] 3 14:40:14 Date Recorded Body mass index (BMI) Body height Oxygen saturation Oxygen saturation in Arterial blood by Pulse oximetry Heart rate Body temperature Body weight Systolic And Diastolic Provider Name and Address Organization Details Last Updated DateTime 2 55.1 kg/m2 154.94 cm 98 % 98 % 76 /min 97.2 [degF] 427460. 82 g 138/72 mm[Hg] Not Available [facility] 3 18:38:43 Date Recorded Body height Body weight Body temperature Heart rate Oxygen saturation Oxygen saturation in Arterial blood by Pulse oximetry Inhaled oxygen flow rate Systolic And Diastolic Provider Name and Address Organization Details Last Updated DateTime 3 154.94 cm 661365. 86 g 97.2 [degF] 101 /min 93 % 93 % 2 L/min 130/70 mm[Hg] Jessica Gutierrez RN [facility] 3 14:30:56 Date Recorded Body height Body mass index (BMI) Body weight Heart rate Oxygen saturation Oxygen saturation in Arterial blood by Pulse oximetry Inhaled oxygen flow rate Systolic And Diastolic Provider Name and Address Organization Details Last Updated DateTime 3 154.94 cm 51.4 kg/m2 412560. 12 g 76 /min 92 % 92 % 2 L/min 132/68 mm[Hg] Dionne Rao MA [facility] 3 10:25:02 Social History Question Answer Notes LastModified by Organizat ion Details LastModified Time Tobacco Smoking Status Former Smoker Not Available [facility] 06/15/2022 18:37:41 Do You Have An Advance Directive? No MIGRATION.64695 81955 Information not available 06/15/2022 Are You Blind Or Do You Have Difficulty Seeing? No MIGRATION.54799 49703 Information not available 06/15/2022 What Is Your Level Of Caffeine Consumption? Heavy MIGRATION.11514 30340 Information not available 06/15/2022 In The 14 Days Before Symptom Onset, Have You Had Close Contact With A Laboratory-confir med COVID-19 While That Case Was Ill? No MIGRATION.17684 38194 Information not available 06/15/2022 In The 14 Days Before Symptom Onset, Have You Had Close Contact With A Person Who Is Under Investigation For COVID-19 While That Person Was Ill? No MIGRATION.93330 47529 Information not available 06/15/2022 Are You Deaf Or Do You Have Serious Difficulty Hearing? No MIGRATION.67089 41717 Information not available 06/15/2022 What Type Of Diet Are You Following? REGULAR MIGRATION.22938 48689 Information not available 06/15/2022 What Is The Highest Grade Or Level Of School You Have Completed Or The Highest Degree You Have Received? EX00715-0 Some College MIGRATION.62248 08832 Information not available 06/15/2022 Do You Have An Electrostatic Air Filter? No MIGRATION.69741 57391 Information not available 06/15/2022 When Did You Quit Smoking? 1-5yearssinc elastcigaret te August 14, 2020 MIGRATION.31884 10391 Information not available 06/15/2022 Do You Have A Humidifier? No MIGRATION.74722 10159 Information not available 06/15/2022 Do You Have A Medical Power Of Nuclear Fuel Processing Technician? No MIGRATION.03780 79057 Information not available 06/15/2022 Do You Have Moisture Problems In Your Home? No MIGRATION.86932 86270 Information not available 06/15/2022 What Was The Date Of Your Most Recent Tobacco Screening? 12/29/2020 MIGRATION.08694 88310 Information not available 06/15/2022 Have You Ever Been Counseled For Unhealthy Alcohol Use? No MIGRATION.65549 83972 Information not available 06/15/2022 Do You Have Any Pets? No MIGRATION.22094 32516 Information not available 06/15/2022 What Is Your Relationship Status? MIGRATION.11555 22567 Information not available 06/15/2022 Do You Use Your Seat Belt Or Car Seat Routinely? Yes MIGRATION.51613 23003 Information not available 06/15/2022 Do You Have Smoke And Carbon Monoxide Detectors In Your Home? Yes MIGRATION.56030 75501 Information not available 06/15/2022 At What Age Did You Start Smoking Tobacco? 25 MIGRATION.96784 88491 Information not available 06/15/2022 Are You Passively Exposed To Smoke? No MIGRATION.68470 83973 Information not available 06/15/2022 Do You Use Sunscreen Routinely? No MIGRATION.02571 26184 Information not available 06/15/2022 Has Tobacco Cessation Counseling Been Provided? No MIGRATION.53289 67427 Information not available 06/15/2022 How Many Years Have You Smoked Tobacco? 40 MIGRATION.19582 83256 Information not available 06/15/2022 Have You Recently Traveled Abroad? No MIGRATION.48708 52224 Information not available 06/15/2022 Do You Have Difficulty Walking Or Climbing Stairs? No MIGRATION.35533 28292 Information not available 06/15/2022 Do You Have Any Dietary Restrictions? No MIGRATION.21783 62021 Information not available 06/15/2022 Sex: Unknown Functional Status Question Answer Note LastModified by Organizat ion Details LastModified Time Do you use any illicit or recreational drugs? No MIGRATION.8181096 026 Information not available 06/15/2022 Do you or have you ever used any other forms of tobacco or nicotine? No MIGRATION.3387377 026 Information not available 06/15/2022 What is your level of alcohol consumption? Occasional MIGRATION.6479683 026 Information not available 06/15/2022 Do you have transportation difficulties? No MIGRATION.4614919 026 Information not available 06/15/2022 Are you able to walk? YESWOREST MIGRATION.7918265 026 Information not available 06/15/2022 Do you have difficulty doing errands alone? No MIGRATION.3360401 026 Information not available 06/15/2022 Are you able to care for yourself? Yes MIGRATION.9506400 026 Information not available 06/15/2022 Do you have difficulty dressing or bathing? No MIGRATION.7133419 026 Information not available 06/15/2022 What is your exercise level? None MIGRATION.2510270 026 Information not available 06/15/2022 Mental Status Question Answer Note LastModified by Organizat ion Details LastModified Time Do you have difficulty concentrating, remembering or making decisions? No MIGRATION.555295851 6 Information not available 06/15/2022 Family History Relationship Description Onset Age of this Age Resolved Age Notes LastModified by Organization Details LastModified Time Father Disorder of lung MIGRATION.816 [id number] Not available 06/15/2022 18:37:48 Mother Disorder of lung MIGRATION.940 3697590 Not available 06/15/2022 18:37:48 Sister Disorder of lung MIGRATION.122 7707646 Not available 06/15/2022 18:37:48 Medical History No medical history recorded. Gynecological HistoryNo gynecological history recorded. Obstetrics History GPAL:G 0 P 0 0 0 0 Immunizations Vaccine Type Date Status Note Provider Nam e and Address Organization Details Recorded Time influenza, unspecified formulation 0 completed Not Available [facility] 06/15/2022 18:41:26 Past Encounters Encounter ID Performer Location Encounter Start Date Encounter Closed Date Diagnosis/Indication Diagnosis SNOMED-CT Code Diagnosis ICD10 Code Diagnosis Note [id number] [facility] [place] [address] [place] [address] 11/17/2020 00:00:00 11/17/2020 14:10:51 [id number] [facility] [place] [address] [place] [address] 12/29/2020 00:00:00 12/29/2020 13:16:22 [id number] [facility] [place] [address] [place] [address] 03/01/2021 00:00:00 03/01/2021 14:20:12 [id number] [facility] [place] [address] [place] [address] 04/28/2021 00:00:00 04/28/2021 13:41:04 [id number] [facility] [place] [address] [place] [address] 05/27/2021 00:00:00 05/27/2021 20:33:39 [id number] BEBETO Lantigua [facility] [place] [address] [place] [address] 11/22/2021 00:00:00 11/22/2021 16:54:00 [id number] BEBETO Lantigua [facility] [place] [address] [place] [address] 12/07/2021 00:00:00 12/07/2021 15:54:23 [id number] Amanda Valentine, [facility] [place] [address] [place] [address] 05/24/2022 00:00:00 05/24/2022 16:36:18 [id number] Amanda Valentine, [facility] [place] [address] [place] [address] 09/14/2022 14:19:08 09/14/2022 14:59:42 Secondary pulmonary hypertension 01331186 I27.21 Cardiac catheteriz ation through [facility] with [...] challenge negative Multiple n odules of lung 955807352 R91.[address] chest 07/13/20, repeat 11/26/21 stable with all nodules to BUL less than 2mmHistopl asma, blastomyce s negative.L egionella, cocciciode s, KINJAL and SEYMOUR normalRepe at CT in one year, due 11/2022 Extreme ob esity with alveolar hypoventilation 201755891 E66.2 Continue BIPAP.Down load on with 100% [...] at least 4 hours prior to bedtime. [id number] Amanda Valentine, PRODUCT MARKETING DIRECTOR- [facility] [place] [address] [place] [address] 01/13/2023 14:24:33 01/13/2023 15:04:28 Secondary pulmonary hypertension 63570135 I27.21 Cardiac catheteriz ation through [facility] with [...] 11/2020 negative Multiple n odules of lung 408588945 R91.[address] chest 07/13/20, repeat 11/26/21 stable with all nodules to BUL less than 2mmHistopl asma, blastomyce s negative.L egionella, cocciciode s, KINJAL and SEYMOUR normalRepe at CT in one year, due 11/2022 - ordered today Extreme ob esity with alveolar hypoventilation 680915858 E66.2 Continue BIPAP.Down load on with 100% [...] one year, PRN for concerns Physical deconditioning 6869104959 9102 R68.89 Contributo r to dyspnea Dependence on supplemental oxygen 5835938867 07 Z99.81 2 liters with activitySh e has good use and clinical benefitLas t six minute walk testing in 2020Needs repeat, plans for this fall with PFT [id number] Amanda Valentine, THERESE-BC [facility] [place] [address] [place] [address] 03/07/2023 10:15:29 03/07/2023 12:16:27 Secondary pulmonary hypertension 55340679 I27.21 Cardiac catheteriz ation through [facility] with moderate PHSevere diastolic dysfunctio nUncorrect ed JHOYN/OHS and hypoxia likely contribute d - these [...] vaccines this fall Dependence on supplemental oxygen 3101119524 07 Z99.81 2 liters with activitySh e has good use and clinical benefitLas t six minute walk testing in 2020I recommend repeat testing Multiple n odules of lung 936048601 R91.[address] chest 07/13/20, repeat 11/26/21 stable with all nodules to BUL less than 2mmHistopl asma, blastomyce s negative.L egionella, cocciciode s, KINJAL and SEYMOUR normalRepe at CT 01/2023 with no nodule, mass or adenopathy . Calcified granuloma noted Extreme ob esity with alveolar hypoventilation 576479436 E66.2 Continue BIPAP.Last download on with 100% [...] one year, PRN for concerns Physical deconditioning 2982738787 9102 R68.89 Contributo r to dyspnea Health Concerns Section Related Observation LastModified by Organization Detai ls LastModified Time None Recorded Concern Status LastModified by Organization Details LastModified Time None Recorded Advance Directives Directive N: Payers Insurance Date Sequence Insurance Name Policy Number Policy Wong Covered Member ID Wong Member ID Guarantor Name 03/04/2023 1 [facility] (MEDICARE REPLACEMENT/A DVANTAGE - PPO) [id number] Nadya Zarate [id number] Nadya Zartae 03/04/2023 2 [place] [employer] Nadya Zarate [id number] Nadya Zarate Notes Date Note Type Note [...] symptoms.No change in dyspnea without inhaled therapy BEBETO Lantigua [address], [place], [address], [employer] 09/14/2022 16:40:44 3 text/html Ms Zarate presents today to follow up on dyspnea, mild emphysema, OHS, PH, recent carotid surgeryShe did not have significant improvement in dyspnea [...] she has restful sleep BEBETO Lantigua [address], [place], [address], [email or web address] 01/16/2023 10:04:37 3 text/html Ms Zarate presents today to follow up on dyspnea, mild emphysema, OHS, PH, recent carotid surgery, oxygen dependenceShe did not have significant improvement in dyspnea [...] PAP, she has restful sleep Amanda Valentine, [facility] [address] [facility], [facility] [address], [place], [address], [facility] [employer] 03/07/2023 15:13:02 OBGyn Episode No OBEpisode recorded.
--- OUTSIDE RECORDS SUMMARY | 2024-10-30 08:57 | XMS_ITS | Patient Health Record ---
Author Organization [facility] Address [address] [facility] [address] [place] [address] Care Team Providers Care Compensation/Benefits Specialist Name Role Phone Carmelina Coyne Unavailable [phone] Reason For Referral No Information Medications Medication SIG (Take, Route, Frequency, Duration) Notes Start Date End Date Status Atorvastatin Calcium 20 MG Oral Active metOLazone 2.5 MG Oral Ac tive Diclofenac Sodium 75 MG Oral Active ALPRAZolam 0.25 MG Oral A ctive FLUoxetine HCl 40 MG Oral Active amLODIPine Besylate 5 MG Oral Active Zetia 10 MG Oral Active VITAMIN B-12 100 MCG TABLET *Reorder from [employer] for eRx and Interaction Alerts* Active Effexor XR 75 MG Oral Act carrie Losartan Potassium-HCTZ 100-25 MG Oral Active FLUoxetine HCl 20 MG Oral Active FLUoxetine HCl 60 MG Oral Active Effexor XR 37.5 MG Oral A ctive Plan Of Treatment No Information
--- OUTSIDE RECORDS SUMMARY | 2024-10-30 08:57 | XMS_ITS | Clinical Summary ---
Author Organization [facility] Address [address] [place] [address] Care Team Providers Care Family Services Worker Name Role Phone Gonzalo Gamboa MD Unavailable Franck Cook NP Primary Care Provider + [phone] Allergies Active Allergy Reactions Criticality Noted Date [...] mg total) by mouth daily 3 Active albuterol HFA (PROVENTIL HFA,VENTOLIN HFA,PROAIR HFA) [...] mouth daily Four 20mg tablets daily Active nvakymgi-wzds-OO -calcium-mins 18 mg iron-400 mcg-500 mg Ca [...] (three) times a day with meals Active pantoprazole DR (PROTONIX) 40 mg EC tablet TAKE 1 TABLET BY MOUTH IN THE MORNING AND EVERY DAY AT BEDTIME 5 Active triamcinolone (KENALOG) 0.1 % ointment APPLY OINTMENT TOPICALLY TO AFFECTED AREA THREE TIMES DAILY 5 Active ketoconazole (NIZORAL) 2 % cream APPLY CREAM TOPICALLY TO AFFECTED AREA TWICE DAILY 5 Active methocarbamoL (ROBAXIN) 750 mg tablet 5 Active Active Problems Problem Noted Date Diagnosed Date Chronic respiratory failure with hypoxia, on home O2 therapy 07/19/2024 Assessment & Plan (07/19/2024 11:17 AM CDT): Continue supplemental oxygen at 2-3 L with activity for saturations 90% or greater. We have discussed the risks of hypoxia I have encouraged weight loss as I am unsure that her oxygen requirement directly related to a pulmonary process I would consider a repeat walk testing if her symptoms were to change. Obesity hypoventilation syndrome 07/19/2024 Assessment & Plan (07/19/2024 11:20 AM CDT): I have encouraged weight loss as she has significant central obesity I am unsure if she would be a candidate for Mounjaro or Ozempic She would likely also benefit from an exercise program and a dietitian Pulmonary hypertension 07/19/2024 Assessment & Plan (07/19/2024 11:21 AM CDT): And need to review her most current cardiac testing including cardiac catheterization and echocardiogram. 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 02/12/2024 Assessment [...] versus TCAR Congestive heart failure 08/23/2021 023 Assessment & Plan (07/19/2024 11:19 AM CDT): I would like to review recent cardiology notes including her heart catheterization and recent echocardiogram She is on diltiazem spironolactone, and torsemide in addition to aspirin and clopidogrel Continue close follow-up with Cardiology, this is certainly a contributor to her dyspnea and oxygen requirement Sensation of lump in throat 05/26/2021 Localized [...] 08/17/2022 Obstructive sleep apnea (adult) (pediatric) 10/1508/17/2022 Cigarette nicotine dependence in remission 11/0208/17/2022 Assessment & Plan (07/19/2024 11:18 AM CDT): She quit smoking in 2020 with a 40 pack-year history Her lung cancer screening was completed in February of 2024 with no new or worrisome pulmonary nodule She is due for annual screening in February of 2025 Abscess of breast 02/27/2014 Resolved Problems Problem [...] Encounters Date Type Department Care Team Description 08/02/2024 Orders Only [facility] [address] [place] [address] [address] [address] Provider, MD Reyes from Last 3 Months Immunizations Immunization Administration [...] 2 diabetes mellitus (HCC) 07/31/2023 Depression Anxiety Obesity hypoventilation syndrome (HCC) Family History Medical History Relation Name Comments [...] file 09/28/2022 How often do you attend [facility] [employer] or jainism services? Never 09/28/2022 Do you belong to any clubs o r organizations such as presybeterian groups, unions, fraternal or athletic groups, or [...] place to sleep or slept in a skilled nursing (including now)? No 09/28/2022 Personal Safety Answer Date Recorded Have you ever been in or are you currently in a harmful physical or emotional relationship or is someone making you feel afraid or unsafe? Denies 09/27/2022 Comments Unknown Sex and Gender Information Value Date Recorded Sex Assigned at Not on file Legal Sex Female 5:22 AM CLOTHING CONSULTANT Gender Identity Female 10/12/2022 10:18 AM CDT Sexual Orientation Not on file Obstetrics History Last Filed Vital Signs Vital Sign Reading Time Taken Comments Blood Pressure 151/70 07/30/2024 2:09 PM CDT Pulse 82 07/30/2024 2:09 PM CDT Temperature 36.4 C (97.5 F) 07/18/2024 2:52 PM CDT Respiratory Rate 18 07/30/2024 2:09 PM CDT Oxygen Saturation 93% 07/30/2024 2:09 PM CDT Inhaled Oxygen Concentration - - Weight 127.4 kg (280 lb 12.8 oz) 07/30/2024 2:09 PM CDT Height 154.9 cm (5' 1) 07/30/2024 2:09 PM CDT Body Mass Index 53.06 07/30/2024 2:09 PM CDT Plan of Treatment Health Maintenance Due Date [...] Vaccine (2 - season) 2023 Influenza Vaccine (Season Ended) 2024 03/01/20 20, 02/16/2020 Lung Cancer Screening 02/26/2025 02/26/2024 Medical Devices Implanted Type Area Parking Enforcement Officer Device Identifier Shelf Expiration Date Model / Serial / Lot [facility] [employer] Flex 8mm .065in 40mm 57cm Delivery System Angle Tip Sr-0840-Cs - [id number] Implanted:Qty: 1 on 09/27/2022 by Brando Pearson MD at [facility] 12/15/2024 SR-0840-CS / / [id number] Procedures Procedure Name Priority Date/Time Associated Diagnosis Comments SLEEP TITRATION DATA Routine 08/02/2024 10:[address] LUNG CANCER SCREENING Schedule Routine, Read Routine (OP Routine) 02/26/2024 12:57 PM CLOTHING CONSULTANT Nicotine dependence, cigarettes, in remission EGFR Routine 09/13/2022 10:54 AM CDT Carotid stenosis, right SCREENING MAMMOGRAM Routine 07/17/2014 8:41 AM CDT from Last 3 Months or Most Recently Relevant to Health Maintenance Results * Sleep Titration Data (08/02/2024 10:20 AM CDT) Historical Provider SLEEP CENTER ORDERABLES F inal Result * CT Lung Cancer Screening (02/26/2024 12:57 PM CLOTHING CONSULTANT) Anatomical Region Laterality Modality Chest N/A Computed Tomogra phy 02/29/2024 6:23 AM CLOTHING CONSULTANT Narrative 02/29/2024 6:33 AM CLOTHING CONSULTANT EXAM DESCRIPTION: CT LUNG CANCER SCREENING REASON [...] - Electronically signed by Austin Valle M.D. Austin Valle M.D. BRONSON T: Report ID: [id number] Reading Location: [place] [address] us Tim Escobar MD IMG CT PROCEDURES Final Result * eGFR (09/13/2022 10:54 AM CDT) eGFR 35 mL/min/1. 73 m2 JUANJO Comment: Interpretive Data Reference Interval Normal >/= [...] LAB BLOOD ORDERABLES Final Resul t JUANJO MH [address] [facility] Department [place] [address] * Screening Mammogram (07/17/2014 8:41 AM CDT) Anatomical Region Laterality Modality Breast N/A Mammography 07/17/2014 8:41 AM CDT Narrative 08/06/2014 1:53 PM CDT LIANNE ALCARAZ M.D. FINAL REPORT ACC# Date Time Exam [id number] Jul 17, 2014 08:41:00 [facility] [address] Screening Mamm Bilat Technologist(s): Eliza Fischer; ; EXAMINATION: ADDENDUM 08/06/2014 01:53PM ADDENDUM: 08/06/2014 The present examination has been compared to prior imaging studies performed at [facility] on 02/15/2013, 01/05/2012 and 04/15/2006. Focal asymmetry in the right breast requires additional evaluation. Additional views are recommended. OVERALL FINAL ASSESSMENT: BI-RADS CATEGORY 0: Incomplete: Need additional imaging evaluation. END OF ADDENDUM Mammogram Technique: Bilateral Full-Field Digital Screening Mammogram was performed. Views obtained: bilateral craniocaudal and bilateral mediolateral oblique. Computer Aided Detection was performed with Edgeware.3 version 9.3. Mammogram Findings: The breasts are [...] ALCARAZ M.D. on Aug 06 2014 1:53P [id number] Procedure Note Provider, MD Reyes - 08/04/2016 LIANNE ALCARAZ M.D. FINAL REPORT ACC# Date Time Exam [id number] Jul 17, 2014 08:41:00 [facility] [address] Screening Mamm Bilat Technologist(s): Eliza Fischer; ; EXAMINATION: ADDENDUM 08/06/2014 01:53PM ADDENDUM: 08/06/2014 The present examination has been compared to prior imaging studies performed at [facility] on 02/15/2013, 01/05/2012 and 04/15/2006. Focal asymmetry in the right breast requires additional evaluation. Additional views are recommended. OVERALL FINAL ASSESSMENT: BI-RADS CATEGORY 0: Incomplete: Need additional imaging evaluation. END OF ADDENDUM Mammogram Technique: Bilateral Full-Field Digital Screening Mammogram was performed. Views obtained: bilateral craniocaudal and bilateral mediolateral oblique. Computer Aided Detection was performed with Edgeware.3 version 9.3. Mammogram Findings: The breasts are [...] ALCARAZ M.D. on Aug 06 2014 1:53P [id number] us Historical Provider MD MORENO MAMMO PROCEDURES Cleopatra l Result from Last 3 Months or Most Recently Relevant to Health Maintenance Insurance [facility] MEDICARE ADVANTAGE [facility] Address: [address] [address] [place] [address] IDPA IDPA Advance Directives For more information, please contact: [phone] Documents on File Type Date Recorded Patient Cork Tile Floor Layer Expl anation Advance Directives and Livin g Will 09/27/2022 5:52 AM * Full Code (Latest Code Status on File) Date Activated Date Inactivated Comments 09/27/2022 11:52 AM 09/28/2022 8:13 PM Care Teams Family Services Worker Relationship Specialty Start Date End Date Franck Cook NP [address] [facility] 1 [facility] 1 [place] [address] PCP - General Nurse Practitioner 09/15/23 [place] [address] [facility] [address] [place] [address] Consulting Physician Cardiology 02/01/23
--- OUTSIDE RECORDS SUMMARY | 2024-10-30 08:57 | XMS_ITS | Encounter Summary ---
Author Organization [facility] Address [address] [place] [address] Care Team Providers Care Canvas Cutter Hand Name Role Phone Rory Morales DO Primary Care Provider [phone] Encounter Details Date Type Department Care Team (Late st Contact Info) Description 10/30/2024 External Device Data STL ABSTRACTION [...] Description 01/08/2025 2:30 PM CDT Office Visit [facility] - [place] [address] [place] [address] Nico Bolivar MD [address] [facility] [address] [place] [address] documented as of this encounter Visit Diagnoses Not on filedocumented in this encounter Care Teams Canvas Cutter Hand Relationship Specialty Start Date End Date Rory Morales DO [address] [facility] [address] [place] [id number] PCP - General Internal Medicine 07/08/24 documented as of this encounter
--- OUTSIDE RECORDS SUMMARY | 2024-10-30 08:57 | XMS_ITS | Referral Summary ---
Author Organization [facility] Address [address] [place] [address] Care Team Providers Care Oim Consultant Name Role Phone Gonzalo Gamboa MD Unavailable Franck Cook NP Primary Care Provider [phone] Encounters Date Type Department Care Team Description 08/02/2024 Orders Only [facility] [address] [place] [address] [address] [place] [address] ProviderReyes MD from Last 3 Months Allergies Active Allergy [...] mouth daily Four 20mg tablets daily Active jyjlyhne-klqw-YQ -calcium-mins 18 mg iron-400 mcg-500 mg Ca [...] often do you attend chur ch or anglican services? Never 09/28/2022 Do you belong to any clubs o r organizations such as druze groups, unions, fraternal or athletic groups, or [...] place to sleep or slept in a mcfp (including now)? No 09/28/2022 Personal Safety Answer Date Recorded Have you ever been in or are you currently in a harmful physical or emotional relationship or is someone making you feel afraid or unsafe? Denies 09/27/2022 Comments Unknown Sex and Gender Information Value Date Recorded Sex Assigned at Not on file Legal Sex Female 5:22 AM INSECTICIDE MAKER Gender Identity Female 10/12/2022 10:18 AM CDT [...] Weight 127.4 kg (280 lb 12.8 oz) 2024 2:09 PM CDT Height 154.9 cm (5' 1) 07/30/2024 2:09 PM CDT Body Mass Index 53.06 07/30/2024 2:09 PM CDT Plan of Treatment Not on file Medical Devices Implanted Type Area Machine Made Shoe Unit Worker Device Identifier Shelf Expiration Date Model / Serial / Lot [facility] [employer] Flex 8mm .065in 40mm 57cm Delivery System Angle Tip Sr-0840-Cs - [id number] Implanted:Qty: 1 on 09/27/2022 by Brando Pearson MD at [facility] 12/15/2024 SR-0840-CS / / [id number] Procedures Procedure Name Priority Date/Time Associated Diagnosis Comments SLEEP TITRATION DATA Routine 08/02/2024 10:[address] LUNG CANCER SCREENING Schedule Routine, Read Routine (OP Routine) 02/26/2024 12:57 PM INSECTICIDE MAKER Nicotine dependence, cigarettes, in remission EGFR Routine 09/13/2022 10:54 AM CDT Carotid stenosis, right SCREENING MAMMOGRAM Routine 07/17/2014 8:41 AM CDT from Last 3 Months or Most Recently Relevant to Health Maintenance Results * Sleep Titration Data (08/02/2024 10:20 AM CDT) us Historical Provider SLEEP CENTER ORDERABLES F inal Result * CT Lung Cancer Screening (02/26/2024 12:57 PM INSECTICIDE MAKER) Anatomical Region Laterality Modality Chest N/A Computed Tomogra phy 02/29/2024 6:23 AM INSECTICIDE MAKER Narrative 02/29/2024 6:33 AM INSECTICIDE MAKER EXAM DESCRIPTION: CT LUNG CANCER SCREENING REASON [...] Austin Valle M.D. BRONSON T: Report ID: [id number] Reading Location: [place] [address] us Tim Escobar MD IMG CT PROCEDURES [...] 4 AM CDT 09/13/2022 10:57 AM CDT us Brando Pearson MD LAB BLOOD ORDERABLES Final Resul t JUANJO DIXON [address] [facility] Department [place] [address] * Screening Mammogram (07/17/2014 8:41 AM CDT) Anatomical Region Laterality Modality Breast N/A Mammography 07/17/2014 8:41 AM CDT Narrative 08/06/2014 1:53 PM CDT LIANNE ALCARAZ M.D. FINAL REPORT ACC# Date Time Exam [id number] Jul 17, 2014 08:41:00 [facility] [address] Screening Mamm Bilat Technologist(s): Eliza Fischer; ; EXAMINATION: ADDENDUM 08/06/2014 01:53PM ADDENDUM: 08/06/2014 The present examination has been compared to prior imaging studies performed at [facility] on 02/15/2013, 01/05/2012 and 04/15/2006. Focal asymmetry in the right breast requires additional evaluation. Additional views are recommended. OVERALL FINAL ASSESSMENT: BI-RADS CATEGORY 0: Incomplete: Need additional imaging evaluation. END OF ADDENDUM Mammogram Technique: Bilateral Full-Field Digital Screening Mammogram was performed. Views obtained: bilateral craniocaudal and bilateral mediolateral oblique. Computer Aided Detection was performed with Bandcamp.3 version 9.3. Mammogram Findings: The breasts are [...] ALCARAZ M.D. on Aug 06 2014 1:53P [id number] Procedure Note Provider, MD Reyes - 08/04/2016 LIANNE ALCARAZ M.D. FINAL REPORT ACC# Date Time Exam [id number] Jul 17, 2014 08:41:00 [facility] [address] Screening Mamm Bilat Technologist(s): Eliza Fischer; ; EXAMINATION: ADDENDUM 08/06/2014 01:53PM ADDENDUM: 08/06/2014 The present examination has been compared to prior imaging studies performed at [facility] on 02/15/2013, 01/05/2012 and 04/15/2006. Focal asymmetry in the right breast requires additional evaluation. Additional views are recommended. OVERALL FINAL ASSESSMENT: BI-RADS CATEGORY 0: Incomplete: Need additional imaging evaluation. END OF ADDENDUM Mammogram Technique: Bilateral Full-Field Digital Screening Mammogram was performed. Views obtained: bilateral craniocaudal and bilateral mediolateral oblique. Computer Aided Detection was performed with Bandcamp.3 version 9.3. Mammogram Findings: The breasts are [...] ALCARAZ M.D. on Aug 06 2014 1:53P [id number] us Historical Provider MD MORENO MAMMO PROCEDURES Cleopatra l Result from Last 3 Months or Most Recently Relevant to Health Maintenance Insurance [facility] MEDICARE ADVANTAGE [place] [address] IDPA IDPA Advance Directives For more information, please contact: [phone] Documents on File Type Date Recorded Patient Director Product Management Expl anation Advance Directives and Livin g Will 09/27/2022 5:52 AM * Full Code (Latest Code Status on File) Date Activated Date Inactivated Comments 09/27/2022 11:52 AM 09/28/2022 8:13 PM Care Teams Oim Consultant Relationship Specialty Start Date End Date Franck Cook NP [address] [facility] 1 [facility] 1 [place] [address] PCP - General Nurse Practitioner 09/15/23 [place] [address] [address] Consulting Physician Cardiology 02/01/23
[2024-10-30 10:04] LABS: Alanine Aminotransferase 22 U/L (6-35); Albumin Level 4.0 g/dL (3.5-5.1); Alkaline Phosphatase 134 U/L (38-126); Anion Gap 10 mmol/L (4-12); Aspartate Amino Transferase 42 U/L (14-36); Bilirubin,Total 0.4 mg/dL (0.2-1.3); Blood Urea Nitrogen 25 mg/dL (7-17); Calcium 8.8 mg/dL (8.4-10.2); Carbon Dioxide 29 mmol/L (22-30); Chloride 101 mmol/L (98-107); Cholesterol 116 mg/dL (0-200); Estimated Glomerular Filt Rate 50; Glucose 124 mg/dL (65-110); HDL Direct 29 mg/dL; Potassium 3.7 mmol/L (3.4-5.0); Sodium 140 mmol/L (137-145); Total Protein 7.2 g/dL (6.3-8.2); Triglycerides 169 mg/dL (<150)
[2024-10-30 10:15] LABS: Total Protein Urine Random 14 mg/dL; Ur Ttl Prot Creatinine Ratio 0.12 mg/mg (0-0.20)
[2024-10-30 10:22] LABS: Hemoglobin A1C 6.5 % (<5.7)
== END 2024-10-30 08:46 | disposition home or self-care (01) ==
PROVIDERS: PCP Nurse Practitioner; Visit Provider Internal Medicine Nephrology
DX: E78.5 Hyperlipidemia, unspecified (principal); E11.9 Type 2 diabetes mellitus without complications; I12.9 Hypertensive chronic kidney disease with stage 1 through stage 4 chronic kidney disease, or unspecified chronic kidney disease; N18.32 Chronic kidney disease, stage 3b
CPT/HCPCS: 36415; 80053; 80061; 82570; 83036; 84100; 84156

== ENCOUNTER 2025-01-07 12:23 | Outpatient (CLI) | payer MEDICARE, MEDICAID, SELFPAY ==
--- OUTSIDE RECORDS SUMMARY | 2025-01-07 12:40 | XMS_ITS | Clinical Summary ---
Author Organization [facility] Address [address] [place] [address] Care Team Providers Care Publication Director Name Role Phone Gonzalo Gamboa MD Unavailable Franck Cook NP Primary Care Provider + [phone] Allergies Active Allergy Reactions Criticality Noted Date [...] mouth daily Four 20mg tablets daily Active dnqpbopo-prej-AA -calcium-mins 18 mg iron-400 mcg-500 mg Ca [...] vascular disease COPD (chronic obstructive pulmonary disease) Oxygen dependent 2020 Arthritis Obesity Cataract 2020 removed Sleep apnea GERD (gastroesophageal reflux disease) Type 2 diabetes mellitus 07/31/2023 Depression Anxiety Obesity hypoventilation syndrome (HCC) Family History Medical History Relation Name Comments Heart attack Father Luigi Velasco Heart disease Mother Francisca Velasco Heart failure Mother Francisca Velasco Lung cancer Mother Francisca Velasco Relation Name Status Comments Father Luigi Velasco Mother Francisca Velsaco Social History Tobacco Use Types Packs/Day Years Used Date Smoking Tobacco: Former Cigarettes 1 40 0 08/14/1980 - 08/14/2020 Smokeless Tobacco: Never Tobacco Cessation:Counseling Given: Not Answered Social Connection and Isolation Panel Answer Date Recorded In a typical week, how many times do you talk on the phone with family, friends, or neighbors? More than three times a week 09/28/2022 Frequency of Social Gatherin gs with Friends and Family Not on file 09/28/2022 How often do you attend chur ch or confucianism services? Never 09/28/2022 Do you belong to any clubs o r organizations such as restorationism groups, unions, fraternal or athletic groups, or [...] place to sleep or slept in a nursing home (including now)? No 09/28/2022 Personal Safety Answer Date Recorded Have you ever been in or are you currently in a harmful physical or emotional relationship or is someone making you feel afraid or unsafe? Denies 09/27/2022 Comments Unknown Sex and Gender Information Value Date Recorded Sex Assigned at Not on file Legal Sex Female 5:22 AM METALLURGIST PROCESS Gender Identity Female 10/12/2022 10:18 AM CDT [...] 09/29/2023 09/28/2022 Covid-19 Vaccine (2 - season) 2024 Influenza Vaccine (#1) 2024 03/01/2020, 2019 Lung Cancer Screening 02/26/2025 02/26/2024 Medical Devices Implanted Type Area Pulpwood Dealer Device Identifier Shelf Expiration Date Model / Serial / Lot [employer] [facility] [employer] Flex 8mm .065in 40mm 57cm Delivery System Angle Tip Sr-0840-Cs - [id number] Implanted:Qty: 1 on 09/27/2022 by Brando Pearson MD at [facility] 12/15/2024 SR-0840-CS / / [id number] Procedures Procedure Name Priority Date/Time Associated Diagnosis Comments CT LUNG CANCER SCREENING Schedule Routine, Read Routine (OP Routine) 02/26/2024 12:57 PM METALLURGIST PROCESS Nicotine dependence, cigarettes, in remission EGFR Routine 09/13/2022 10:54 AM CDT Carotid stenosis, right SCREENING MAMMOGRAM Routine 07/17/2014 8:41 AM CDT from Last 3 Months or Most Recently Relevant to Health Maintenance Results * CT Lung Cancer Screening (02/26/2024 12:57 PM METALLURGIST PROCESS) Anatomical Region Laterality Modality Chest N/A Computed Tomogra phy 02/29/2024 6:23 AM METALLURGIST PROCESS Narrative 02/29/2024 6:33 AM METALLURGIST PROCESS EXAM DESCRIPTION: CT LUNG CANCER SCREENING REASON [...] Austin Valle M.D. BRONSON T: Report ID: [id number] Reading Location: [id number] us Tim Escobar MD IMG CT PROCEDURES [...] LAB BLOOD ORDERABLES Final Resul t JUANJO [address] [facility] Department [place] [address] * Screening Mammogram (07/17/2014 8:41 AM CDT) Anatomical Region Laterality Modality Breast N/A Mammography 07/17/2014 8:41 AM CDT Narrative 08/06/2014 1:53 PM CDT LIANNE ALCARAZ M.D. FINAL REPORT ACC# Date Time Exam [id number] Jul 17, 2014 08:41:00 [facility] [address] Screening Mamm Bilat Technologist(s): Eliza Fischer; ; EXAMINATION: ADDENDUM 08/06/2014 01:53PM ADDENDUM: 08/06/2014 The present examination has been compared to prior imaging studies performed at [facility] on 02/15/2013, 01/05/2012 and 04/15/2006. Focal asymmetry in the right breast requires additional evaluation. Additional views are recommended. OVERALL FINAL ASSESSMENT: BI-RADS CATEGORY 0: Incomplete: Need additional imaging evaluation. END OF ADDENDUM Mammogram Technique: Bilateral Full-Field Digital Screening Mammogram was performed. Views obtained: bilateral craniocaudal and bilateral mediolateral oblique. Computer Aided Detection was performed with Scopis3 version 9.3. Mammogram Findings: The breasts are [...] ALCARAZ M.D. on Aug 06 2014 1:53P [id number] Procedure Note Provider, MD Reyes - 08/04/2016 LIANNE ALCARAZ M.D. FINAL REPORT ACC# Date Time Exam [id number] Jul 17, 2014 08:41:00 [facility] [address] Screening Mamm Bilat Technologist(s): Eliza Fischer; ; EXAMINATION: ADDENDUM 08/06/2014 01:53PM ADDENDUM: 08/06/2014 The present examination has been compared to prior imaging studies performed at [facility] on 02/15/2013, 01/05/2012 and 04/15/2006. Focal asymmetry in the right breast requires additional evaluation. Additional views are recommended. OVERALL FINAL ASSESSMENT: BI-RADS CATEGORY 0: Incomplete: Need additional imaging evaluation. END OF ADDENDUM Mammogram Technique: Bilateral Full-Field Digital Screening Mammogram was performed. Views obtained: bilateral craniocaudal and bilateral mediolateral oblique. Computer Aided Detection was performed with ShuttleCloud.3 version 9.3. Mammogram Findings: The breasts are [...] ALCARAZ M.D. on Aug 06 2014 1:53P [id number] Historical Provider MD MORENO MAMMO PROCEDURES Cleopatra l Result from Last 3 Months or Most Recently Relevant to Health Maintenance Insurance [facility] MEDICARE ADVANTAGE [facility] MEDICARE Address[facility] [address] [place] [address] [facility] MEDICARE ADVANTAGE IDPA [facility] MEDICARE ADVANTAGE [facility] MEDICARE Address: [address] [address] [place] [address] IDPA Advance Directives For more information, please contact: [phone] Documents on File Type Date Recorded Patient Hospital Manager Expl anation Advance Directives and Venu best Will 09/27/2022 5:52 AM * Full Code (Latest Code Status on File) Date Activated Date Inactivated Comments 09/27/2022 11:52 AM 09/28/2022 8:13 PM Care Teams Publication Director Relationship Specialty Start Date End Date Franck Cook NP [address] [facility] [address] [facility] 1 [place] [address] PCP - General Nurse Practitioner 09/15/23 [place] [address] [address] Consulting Physician Cardiology 02/01/23
--- OUTSIDE RECORDS SUMMARY | 2025-01-07 12:40 | XMS_ITS | Patient Health Record ---
Author Organization [facility] [employer] Address [address] [facility] [address] [place] [address] Care Team Providers Care Superintendent Renting Managing Name Role Phone Carmelina Coyne Unavailable [phone] Reason For Referral No Information Medications Medication SIG (Take, Route, Frequency, Duration) Notes Start Date End Date Status Atorvastatin Calcium 20 MG Tablet Oral Active metOLazone 2.5 MG Tablet Oral Active Diclofenac Sodium 75 MG Tablet Delayed Release Oral Active ALPRAZolam 0.25 MG Tablet Oral Active FLUoxetine HCl 40 MG Capsule Oral Active amLODIPine Besylate 5 MG Tablet Oral Active Zetia 10 MG Tablet Oral A ctive VITAMIN B-12 100 MCG TABLET *Reorder from [employer] for eRx and Interaction Alerts* Active Effexor XR 75 MG Capsule Extended Release 24 Hour Oral Active Losartan Potassium-HCTZ 100-25 MG Tablet Oral Active FLUoxetine HCl 20 MG Capsule Oral Active FLUoxetine HCl 60 MG Tablet Oral Active Effexor XR 37.5 MG Capsule Extended Release 24 Hour Oral Active Plan Of Treatment No Information
--- OUTSIDE RECORDS SUMMARY | 2025-01-07 12:40 | XMS_ITS | Clinical Summary ---
Author Organization [facility] Emma Bower Address [address] [place] [address] Care Team Providers Care Scraper Tender Name Role Phone Rory Morales DO Primary Care Provider [phone] Allergies Active Allergy Reactions Criticality Noted Date [...] Encounters Date Type Department Care Team Description 12/31/2024 External Device Data [facility] ABSTRACTION Provider, Abstract 10/30/2024 External Device Data [facility] ABSTRACTION Provider, Abstract 10/30/2024 External Device Data [facility] ABSTRACTION Provider, Abstract 10/30/2024 External Device Data [facility] ABSTRACTION Provider, [...] [facility] [place] [address] [facility] [address] [place] [address] Nico Bolivar MD [address] [facility] [address] [place] [address] Health Maintenance Due Date Last [...] 50+ YEARS Completed 02/10/2022 , 03/01/2020 Insurance [facility] DUAL COMPLETE PPO DSNP [facility] [id number] MEDICAID [place] Care Teams Scraper Tender Relationship Specialty Start Date End Date Rory Morales DO [address] [facility] [address] [place] [address] PCP - General Internal Medicine 07/08/24
[2025-01-07 13:19] LABS: Hematocrit 44.8 % (37.0-47.0); Hemoglobin 13.9 g/dL (12.0-15.0); Mean Corpuscular HGB Conc 31.0 g/dl (32-36); Mean Corpuscular Hemoglobin 28.5 pg (26-34); Mean Corpuscular Volume 91.8 fl (80-100); Platelet Count Result 422 k/mm3 (150-375); Red Blood Count 4.88 M/mm3 (4.2-5.4); White Blood Count 15.5 K/mm3 (4.5-10.0)
[2025-01-07 13:32] LABS: Alanine Aminotransferase 33 U/L (6-35); Albumin Level 4.4 g/dL (3.5-5.1); Alkaline Phosphatase 159 U/L (38-126); Anion Gap 12 mmol/L (4-12); Aspartate Amino Transferase 43 U/L (14-36); Bilirubin,Total 0.6 mg/dL (0.2-1.3); Blood Urea Nitrogen 29 mg/dL (7-17); Calcium 8.9 mg/dL (8.4-10.2); Carbon Dioxide 28 mmol/L (22-30); Chloride 97 mmol/L (98-107); Estimated Glomerular Filt Rate 50; Glucose 121 mg/dL (65-110); Iron 88 ug/dL (37-170); Potassium 4.4 mmol/L (3.4-5.0); Sodium 137 mmol/L (137-145); Total Protein 7.9 g/dL (6.3-8.2)
[2025-01-07 13:45] LABS: Percent Iron Saturation 22 % (20-50)
[2025-01-07 14:13] LABS: Ferritin 27.10 ng/mL (11.1-264)
[2025-01-07 14:43] LABS: Vitamin B12 932.0 pg/mL (239-931)
== END 2025-01-07 12:24 | disposition home or self-care (01) ==
PROVIDERS: PCP Nurse Practitioner; Referring Provider Internal Medicine Cardiovascular Disease; Visit Provider Internal Medicine Hematology & Oncology
DX: D64.9 Anemia, unspecified (principal)
CPT/HCPCS: 36415; 80053; 82607; 82728; 82746; 83540; 83550; 85027